=== PATIENT | female | born 1950 | race Caucasian/White ===

== ENCOUNTER 2023-04-17 09:43 | Outpatient (OUT) | payer MEDICARE, SELFPAY ==
--- NOTE | 2023-04-17 | MM_ITS ---
Patient Name: JAMILA VALENCIA MR#: [id number] : 1950 Exam Date: 04/17/2023 Ordering Doctor: DR RADHA GREER M.D. RADIOLOGY REPORT PROCEDURE: MM TOMOSYNTHESIS SCREENING BI COMPARISON: MG MAMM SCREEN 3D MARIO CAD, 03/15/2021. MG MAMM SCREEN 3D MARIO CAD, 03/25/2022. INDICATIONS: Screening mammogram Calculator Name NCI Breast Cancer Risk Assessment Tool 5 Year Breast Cancer Risk 1.70% Lifetime Breast Cancer Risk 4.00% Personal Breast Cancer No Personal Ovarian Cancer No Treatments None Family Cancers Mother with lymphoma cancer at age 85; Father with stomach cancer at age 68. LOCATION: [facility] BREAST COMPOSITION: Scattered areas fibroglandular density. FINDINGS: DIAGNOSTIC CATEGORY 1--NEGATIVE. NO CHANGE FROM COMPARISON ASSESSMENT. Scattered benign-appearing calcifications are present. Scattered benign-appearing lymph nodes are present. RIGHT BREAST: No significant suspicious finding. LEFT BREAST: No significant suspicious finding. RECOMMENDATIONS: ROUTINE MAMMOGRAM AND CLINICAL EVALUATION IN 12 MONTHS. PLEASE NOTE: A NORMAL MAMMOGRAM DOES NOT EXCLUDE THE POSSIBILITY OF BREAST CANCER. A CLINICALLY SUSPICIOUS PALPABLE LUMP SHOULD BE BIOPSIED. Dictated by: Rhett Hernandez MD on 04/17/2023 at 13:28 Approved by: Rhett Hernandez MD on 04/17/2023 at 13:30
== END 2023-04-17 09:44 | disposition home or self-care (01) ==
LOC: MAMMO 09:43
PROVIDERS: PCP Internal Medicine; Visit Provider Internal Medicine
DX: Z12.31 Encounter for screening mammogram for malignant neoplasm of breast (principal); Z80.0 Family history of malignant neoplasm of digestive organs; Z80.7 Family history of other malignant neoplasms of lymphoid, hematopoietic and related tissues
CPT/HCPCS: 77063; 77067

== ENCOUNTER 2024-04-19 13:17 | Outpatient (OUT) | payer MEDICARE, SELFPAY ==
--- NOTE | 2024-04-19 13:24 | XR_ITS ---
[address] [address] Patient Name: JAMILA VALENCIA MRN: [id number] date: 1950 Sex: F Assigned Patient Location: [facility] Current Patient Location: Accession/Order Number: [id number] Exam Date: 04/19/2024 13:36 Report Date: 04/20/2024 03:50 At the request of: RADHA GREER Procedure: XR DEXA axial skeleton EXAMINATION: XR DEXA axial skeleton HISTORY: Estrogen Deficiency COMPARISON: DEXA bone densitometry 03/25/2022 TECHNIQUE: Dual-energy X-ray absorptiometry (DXA) was performed. FINDINGS: SPINE ANALYSIS: Average bone mineral density is 1.212 g/cm2. T-score (standard deviation relative to young adult mean): 0.3 . -1.9% change since prior study. HIP ANALYSIS: Lowest bone mineral density is within the left femoral neck, 0.762 g/cm2. T-score (standard deviation relative to young adult mean): -2.0 . +6.1% change since prior study. XR/XR DEXA axial skeleton IMPRESSION: World Health Organization Classification: Osteopenia - Moderate Fracture Risk FRAX: Cannot be calculated. Pharmacologic treatment recommendations * No uniform recommendation applies to all patients. Management plans must be individualized. * Consider initiating pharmacologic treatment in postmenopausal women and men >= 50 years of age who have the following: Primary fracture prevention: * T-score <= - 2.5 at the femoral neck, total hip, lumbar spine, 33% radius (some uncertainty with existing data) by DXA. * Low bone mass (osteopenia: T-score between - 1.0 and - 2.5) at the femoral neck or total hip by DXA with a 10-year hip fracture risk >= 3% or a 10-year major osteoporosis-related fracture risk >= 20% (i.e., clinical vertebral, hip, forearm, or proximal humerus) based on the [place]-adapted FRAXregistered model. Secondary fracture prevention: * Fracture of the hip or vertebra regardless of BMD [4, 5]. * Fracture of proximal humerus, pelvis, or distal forearm in persons with low bone mass (osteopenia: T-score between - 1.0 and - 2.5). The decision to treat should be individualized in persons with a fracture of the proximal humerus, pelvis, or distal forearm who do not have osteopenia or low BMD [12, 13]. Gene MS, Bekah SL, Cate KL, Anusha EM, Emily KG, AJ, Alex ES. The clinician's guide to prevention and treatment of osteoporosis. Osteoporos Int. 2021;33(10):4873-5307. doi: 10.1007/i86316-654-88221-y. Epub 2021Sep 26. Erratum in: Osteoporos Int. 2021Dec 26;: PMID: 67200552; PMCID: [id number]. Electronically authenticated by: BRANDY BENITO Date: 04/20/2024 03:50
--- NOTE | 2024-04-19 13:25 | MM_ITS ---
Patient Name: JAMILA VALENCIA MR#: [id number] : 1950 Exam Date: 04/19/2024 Ordering Doctor: DR RADHA GREER M.D. RADIOLOGY REPORT PROCEDURE: MM TOMOSYNTHESIS SCREENING BI COMPARISON: MG MAMM SCREEN 3D MARIO CAD, 03/25/2022. MM TOMOSYNTHESIS SCREENING BI, 04/17/2023. INDICATIONS: Screening Calculator Name NCI Breast Cancer Risk Assessment Tool 5 Year Breast Cancer Risk 1.70% Lifetime Breast Cancer Risk 3.80% Personal Breast Cancer No Personal Ovarian Cancer No Treatments None Family Cancers Mother with lymphoma cancer at age 85; Father with stomach cancer at age 68. LOCATION: [facility] BREAST COMPOSITION: There are scattered areas of fibroglandular density. FINDINGS: DIAGNOSTIC CATEGORY 2--BENIGN FINDING. NO CHANGE FROM COMPARISON. Scattered benign-appearing calcifications are present. Scattered benign-appearing lymph nodes are present. RIGHT BREAST: No significant suspicious finding. LEFT BREAST: No significant suspicious finding. RECOMMENDATIONS: ROUTINE MAMMOGRAM AND CLINICAL EVALUATION IN 12 MONTHS. PLEASE NOTE: A NORMAL MAMMOGRAM DOES NOT EXCLUDE THE POSSIBILITY OF BREAST CANCER. A CLINICALLY SUSPICIOUS PALPABLE LUMP SHOULD BE BIOPSIED. Dictated by: Rhett Hernandez MD on 04/20/2024 at 08:23 Approved by: Rhett Hernandez MD on 04/20/2024 at 08:24
== END 2024-04-19 13:18 | disposition home or self-care (01) ==
LOC: MAMMO 13:17
PROVIDERS: PCP Internal Medicine; Visit Provider Internal Medicine
DX: Z12.31 Encounter for screening mammogram for malignant neoplasm of breast (principal); E28.39 Other primary ovarian failure; Z80.0 Family history of malignant neoplasm of digestive organs; Z80.7 Family history of other malignant neoplasms of lymphoid, hematopoietic and related tissues; M85.88 Other specified disorders of bone density and structure, other site
CPT/HCPCS: 77063; 77067; 77080

== ENCOUNTER 2024-06-09 13:52 | Outpatient (OUT) | payer MEDICARE, SELFPAY ==
[2024-06-09 15:41] LABS: Creatine Kinase 110 U/L (26-192); Myoglobin 73 ng/mL (9-82)
[2024-06-10 15:08] LABS: Aldolase 2.8 U/L (3.3-10.3)
== END 2024-06-09 13:53 | disposition home or self-care (01) ==
LOC: LAB 13:52
PROVIDERS: PCP Internal Medicine; Visit Provider Nurse Practitioner Family
DX: R29.898 Other symptoms and signs involving the musculoskeletal system (principal)
CPT/HCPCS: 36415; 82085; 82550; 83874

== ENCOUNTER 2024-06-20 10:55 | Outpatient (OUT) | payer MEDICARE, SELFPAY ==
--- NOTE | 2024-06-20 10:57 | VEIN_ITS ---
The [address] [address] Patient Name: JAMILA VALENCIA MRN: [id number] date: 1950 Sex: F Assigned Patient Location: Current Patient Location: Accession/Order Number: [id number] Exam Date: 06/20/2024 10:58 Report Date: 06/20/2024 14:56 At the request of: LULÚ WITT Procedure: VC Arterial Scan Kartik EXAM: VC Arterial Scan Kartik HISTORY: R09.89 Signs and symptoms involving circulatory system. COMPARISON: None. TECHNIQUE: Man scale, color Doppler, spectral Doppler waveform analysis was used to evaluate the bilateral lower extremity arteries. FINDINGS: No significant velocity elevations were seen to suggest a significant stenosis. Monophasic waveform is seen within the right posterior tibial artery. Color-flow is seen throughout. VEIN/VC Arterial Scan Kartik IMPRESSION: No hemodynamically significant stenosis by duplex criteria. Electronically authenticated by: Kaye RUIZ Date: 06/20/2024 14:56
--- OUTSIDE RECORDS SUMMARY | 2024-06-20 11:16 | XMS_ITS | CCD ---
Author Organization [facility] Care Team Providers Care Analytical Chemistry Teacher Name Role Phone ZOEY, DR GARCIA Admitting Unavailable ZOEY, DR GARCIA Attending Unavailable ZOEY, DR GARCIA Consulting Unavailable ZOEY, DR GARCIA Primary Care Unavailable SEDRO WOOLLEY, DR INOCENTE Voss Consulting Unavailable ZOEY, DR GARCIA Admitting Unavailable ZOEY, DR GARCIA Attending Unavailable ZOEY, DR GARCIA Primary Care Unavailable Christian Davis MD Primary Care Provider [phone] Susan HEAD ATHLETIC TRAINER/STRENGTH COACH, Elizabeth Jorge Unavailable Kunal Rodriguez Attending UnavailKunal Vázquez Admitting UnavailChristian Vasquez Primary Care Unavailable CHRISTIAN DAVIS Attending Unavailable KUNAL RODRIGUEZ Attending Unavailable CHRISTIAN DAVIS Referring Unavailable CHRISTIAN DAVIS Attending Unavailable KUNAL RODRIGUEZ Attending Unavailable CHRISTIAN DAVIS Referring Unavailable CHRISTIAN DAVIS Attending Unavailable KUNAL RODRIGUEZ Attending Unavailable KUNAL RODRIGUEZ Referring Unavailable LULÚ WITT Attending Unavailable Allergies Allergy Classification Reported Allergen(s) Allergy Type Date of Onset Reaction(s) Facility (20 sources) Acetaminophen / HYDROcodone Drug Allergy 04-07-2023 Headache [facility] (20 sources) Acetaminophen / oxyCODONE Drug Allergy 04-07-2023 Headache [facility] (20 sources) Amoxicillin Drug Allergy 04-07-2023 [facility] Medications Current Medications Medication Drug Class(es) Dates Sig (Normalized) Sig (Original) Calcium Carbonate-Vit D-Min (Calcium 600+D3 Plus Minerals) 600-800 MG-UNIT chewable tablet (20 sources) Calcium Carbonate-Vit D-Min (Calcium 600+D3 Plus Minerals) 600-800 MG-UNIT chewable tablet 1 (one) time each day at the same time. Active meloxicam 7.5 mg oral tablet (4 sources) Nonsteroidal Anti-inflammatory Drug Start: 06-07-2024 End: 08-06-2024 take 1 tablet by mouth once daily meloxicam (Mobic) 7.5 MG tablet Indications: Lumbar spondylosis Take 1 tablet (7.5 mg) by mouth Daily 30 tablet 1 06/07/2024 08/06/2024 Active Multiple Vitamin (Multi Vitamin) tablet (20 sources) Multiple Vitamin (Multi Vitamin) tablet 1 (one) time each day at the same time. Active Completed/Discontinued Medications Medication Drug Class(es) Dates Sig (Normalized) Sig (Original) bupivacaine hydrochloride 2.5 mg/ml injectable solution (4 sources) Amide Local Anesthetic Start: 05-10-2024 End: 05-10-2024 bupivacaine (Marcaine) 0.25 % injection 2.5 mg Start: 05-10-2024 End: 05-10-2024 bupivacaine (Marcaine) 0.25 % injection 2.5 mg Start: 05-10-2024 End: 05-10-2024 2.5 mg (1 mL), Injection, On ce, On Thu05/10/24 at 1015, For 1 dose Start: 05-10-2024 End: 05-10-2024 2.5 mg (1 mL), Injection, On ce, On Thu05/10/24 at 1015, For 1 dose dexamethasone phosphate 10 mg/ml injectable solution (4 sources) Corticosteroid Start: 05-10-2024 End: 05-10-2024 dexAMETHasone sod phos (Decadron) injection 10 mg Start: 05-10-2024 End: 05-10-2024 dexAMETHasone sod phos (Deca dron) injection 10 mg Start: 05-10-2024 End: 05-10-2024 10 mg (1 mL), Injection, Onc e, On Thu05/10/24 at 1015, For 1 dose Start: 05-10-2024 End: 05-10-2024 10 mg (1 mL), Injection, Onc e, On Thu05/10/24 at 1015, For 1 dose iohexol (OMNIPaque) 300 MG/M L injection 2 mL (4 sources) Start: 05-10-2024 End: 05-10-2024 iohexol (OMNIPaque) 300 MG/M L injection 2 mL Start: 05-10-2024 End: 05-10-2024 2 mL, Injection, Once in mor ging, Starting on Thu05/10/24 at 1008, For 1 dose Problems Active Problems Problem Classification Problem Date Documented Date Episodic/Chronic Administrative/social admission (2 sources) Patient encounter status; Translations: [Other specified counseling] 04-08-2024 Episodic Menopausal disorders (13 sources) Other primary ovarian failure; 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] Onset: 03-30-2022 04-06-2024 Chronic Osteoarthritis (12 sources) Osteoarthritis of right knee joint; Translations: [Unilateral primary osteoarthritis, right knee] Onset: 04-06-2024 04-06-2024 Chronic Other bone disease and musculoskeletal deformities (10 sources) Osteopenia; Translations: [Other specified disorders of bone density and structure, right thigh] Onset: 04-06-2024 04-06-2024 Episodic Other connective tissue disease (7 sources) Neurogenic claudication; Translations: [Other symptoms and signs involving the nervous system] 03-03-2024 Episodic Other connective tissue disease (5 sources) Other symptoms and signs involving the musculoskeletal system; Translations: [Other musculoskeletal symptoms referable to limbs] 04-06-2024 Episodic Other connective tissue disease (8 sources) Pain in bilateral legs; Translations: [Pain in right leg] 06-07-2024 Episodic Other nutritional; endocrine; and metabolic disorders (12 sources) Body mass index 30+ - obesity; Translations: [Obesity, unspecified] Onset: 04-06-2024 04-06-2024 Chronic Other nutritional; endocrine; and metabolic disorders (2 sources) Obesity caused by energy imbalance; Translations: [Morbid (severe) obesity due to excess calories] 04-08-2024 Chronic Other screening for suspected conditions (not mental disorders or infectious disease) (3 sources) Encounter for screening mammogram for malignant neoplasm of breast; Translations: [Patient encounter status] Onset: 03-30-2022 04-08-2024 Episodic Peripheral and visceral atherosclerosis (2 sources) Intermittent claudication; Translations: [Peripheral vascular disease, unspecified] 06-16-2024 Chronic Residual codes; unclassified (1 source) Family history of malignant neoplasm of digestive organs; Translations: [FAM HX MALIG NEOPLASM DIGESTIV ORGN] Onset: 03-30-2022 Episodic Residual codes; unclassified (1 source) Family history of other malignant neoplasms of lymphoid, hematopoietic and related tissues; Translations: [FAM HX OTH MAL CORINNA LYMPH HEMATPOETC] Onset: 03-30-2022 Episodic Spondylosis; intervertebral disc disorders; other back problems (20 sources) Degeneration of lumbar intervertebral disc; Translations: [Lumbar degenerative disc disease] Onset: 04-06-2024 04-06-2024 Chronic Spondylosis; intervertebral disc disorders; other back problems (13 sources) Lumbosacral radiculopathy; Translations: [Radiculopathy, lumbosacral region] 03-10-2024 Episodic Past or Other Problems Problem Classification Problem Date Documented Da te Episodic/Chronic Mood disorders (20 sources) Mood disorders Onset: 04-07-2023 04-07-2023 Unclassified (5 sources) Weakness of both lower extremities 04-06-2024 Results Test Name Value Interpretation Reference Range Facility ALL MYOGLOBINon 06-09-2024 Myoglobin [Mass/Vol] 73 ng/mL 9 - 82 ng/mL [facility] CKon 06-09-2024 CK [Catalytic activity/Vol] 110 U/L 26 - 192 U/L [facility] No Panel Informationon 06-09 [facility] MR lumbar spine wo conon MR lumbar spine wo con [place] [address] MRI Report Signed Patient: Dayna Valencia MR#: [id number] : 1950 Acct:[id number] Age/Sex: 73 / F ADM Date: 05/02/24 Loc: [facility] Room: Type: [facility] Attending Dr: Kunal Rodriguez DO Copies to: Kunal Rodriguze DO Ordering Provider: Kunal Rodriguez DO Date of Service: 05/02/24 MR/MR lumbar spine wo con: [id number] MR lumbar spine wo con 05/02/2024 10:15 AM SIGNS AND SYMPTOMS: Pain in the lower extremities with a history of low back pain PROTOCOL: Multiplanar multisequence MR images of the lumbar spine without contrast COMPARISON: None. FINDINGS: There is 5 mm of anterolisthesis of L4 upon L5 secondary to facet hypertrophy. The bones are in anatomic alignment otherwise. There is preservation of vertebral body heights. There is disc desiccation with moderate disc height loss at L5-S1. There is disc desiccation and mild disc height loss at L3-L4 and L4-L5. The marrow signal is within normal limits. The conus terminates at the superior endplate of the L2 vertebral body level. No epidural or paraspinous fluid collection is appreciated. Simple cysts are noted in the renal cortices requiring no further follow-up. At T12-L1: There is a normal disc, central canal, and neural foramen. At L1-L2: There is a normal disc, central canal, and neural foramen. At L2-L3: There is facet hypertrophy and ligament flavum thickening. There is mild spinal canal stenosis with mild bilateral neural foraminal narrowing. At L3-L4: There is a broad-based disc bulge. There is facet hypertrophy and ligamentum flavum thickening. There is moderate spinal canal stenosis. There is moderate left and moderate neural foraminal narrowing. At L4-L5: There is 5 mm of antral cc of L4 upon L5. There is facet hypertrophy. There is a broad- based disc bulge. There is mild spinal canal stenosis with mild bilateral neural foraminal narrowing. At L5-S1: There is a broad-based disc bulge with endplate osteophyte formation and facet hypertrophy. There is minimal spinal canal narrowing. There is mild bilateral neural foraminal narrowing. MR/MR lumbar spine wo con IMPRESSION: At L3-L4: There is a broad-based disc bulge. There is facet hypertrophy and ligamentum flavum thickening. There is moderate spinal canal stenosis. There is moderate left and moderate neural foraminal narrowing. At L4-L5: There is 5 mm of antral cc of L4 upon L5. There is facet hypertrophy. There is a broad- based disc bulge. There is mild spinal canal stenosis with mild bilateral neural foraminal narrowing. Lesser degrees of degenerative changes are noted as above. Impression dictated by: Willis Batista M.D.05/02/2024 5:33 PM Dictation Location: [place] [address] Transcribed By: [facility] 05/02/24 173 Dictated By: Willis Batista II, MD 05/02/24 1727 Signed By: 05/02/24 173 Normal [facility] COMPREHENSIVE METABOLIC PANE Hari 04-09-2024 Albumin [Mass/Vol] 4.1 g/dL Normal 3.6-5.1 [facility] Comment on above: Performed By: #### 1 0231 #### [facility] of [address], [address] [place] [address] Skip Tender: Alexandro Zambrano MD Albumin/Globulin [Mass ratio] 1.6 {ratio} Normal 1.0-2.5 [facility] Comment on above: Performed By: #### 1 0231 #### [facility] of [address], [address] [place] [address] Skip Tender: Alexandro Zambrano MD ALP [Catalytic activity/Vol] 86 U/L Normal 37-153 [facility] Comment on above: Performed By: #### 1 0231 #### [facility] of [address], [address] [place] [address] Skip Tender: Alexandro Zambrano MD ALT [Catalytic activity/Vol] 13 U/L Normal 6-29 [facility] Comment on above: Performed By: #### 1 0231 #### [facility] of [address], [address] [place] [address] Skip Tender: Alexandro Zambrano MD AST [Catalytic activity/Vol] 18 U/L Normal 10-35 [facility] Comment on above: Performed By: #### 1 0231 #### [facility] of [address], [address] [place] [address] Skip Tender: Alexandro Zambrano MD Bilirubin [Mass/Vol] 0.5 mg/dL Normal 0.2-1.2 [facility] Comment on above: Performed By: #### 1 0231 #### [facility] of [place] [address] Skip Tender: Alexandro Zambrano MD BUN/CREATININE RATIO SEE NOTE: Normal 6-22 [facility] Comment on above: Result Comment: Not Reported: BUN and Creatinine are within reference range. Performed By: #### 1 0231 #### [facility] [address] [address] Skip Tender: Alexandro Zambrano MD Calcium [Mass/Vol] 9.6 mg/dL Normal 8.6-10.4 [facility] Comment on above: Performed By: #### 1 0231 #### [facility] [place] [address] Skip Tender: Alexandro Zambrano MD Chloride [Moles/Vol] 109 mmol/L Normal 98-110 [facility] Comment on above: Performed By: #### 1 0231 #### [facility] [place] [address] Skip Tender: Alexandro Zambrano MD CO2 [Moles/Vol] 26 mmol/L Normal 20-32 [facility] Comment on above: Performed By: #### 1 0231 #### [facility] [place] [address] Skip Tender: Alexandro Zambrano MD Creatinine [Mass/Vol] 0.93 mg/dL Normal 0.60-1.00 [facility] Comment on above: Performed By: #### 1 0231 #### [facility] [place] [address] Skip Tender: Alexandro Zambrano MD GFR/1.73 sq M.predicted among non-blacks MDRD (S/P/Bld) [Vol rate/Area] 64 mL/min/{1.73_m2} Normal > OR = 60 [facility] Comment on above: Performed By: #### 1 0231 #### [facility] of [place] [address] Skip Tender: Alexandro Zambrano MD Globulin (S) [Mass/Vol] 2.5 g/dL Normal 1.9-3.7 [facility] Comment on above: Performed By: #### 1 0231 #### [facility] of [place] [address] Skip Tender: Alexandro Zambrano MD Glucose [Mass/Vol] 87 mg/dL Normal 65-99 [facility] Comment on above: Result Comment: Fasting reference interval Performed By: #### 1 0231 #### [facility] [place] [address] Skip Tender: Alexandro Zambrano MD Potassium [Moles/Vol] 4.4 mmol/L Normal 3.5-5.3 [facility] Comment on above: Performed By: #### 1 0231 #### [facility] [place] [address] Skip Tender: Alexandro Zambrano MD Protein [Mass/Vol] 6.6 g/dL Normal 6.1-8.1 [facility] Comment on above: Performed By: #### 1 0231 #### [facility] [place] [address] Skip Tender: Alexandro Zambrano MD Sodium [Moles/Vol] 141 mmol/L Normal 135-146 [facility] Comment on above: Performed By: #### 1 0231 #### [facility] [place] [address] Skip Tender: Alexandro Zambrano MD Urea nitrogen [Mass/Vol] 21 mg/dL Normal 7-25 [facility] Comment on above: Performed By: #### 1 0231 #### [facility] [place] [address] Skip Tender: Alexandro Zambrano MD EMG 2 Extremitieson 03-10-20 24 S1 radic b/l very mild [facility] NVC 9-10 Nerveson 03-10-2024 S1 radic b/l very mild [facility] CBC AUTO DIFFon 03-25-2022 BASO # 0.0 103/ul Normal 0.0-0.1 [facility] Comment on above: Performed By: #### C BC #### [facility] [address] [place] [address] [address] Lisa Rowan Basophils/100 WBC (Bld) 0.4 % Normal 0.2-2.0 [facility] Comment on above: Performed By: #### C BC #### [facility] [address] [place] [address] Dr. Lisa Rowan EO # 0.2 103/ul Normal 0.0-0.7 [facility] Comment on above: Performed By: #### C BC #### [facility] [address] [place] [address] Dr. Lisa Rowan Eosinophils/100 WBC (Bld) 3.2 % Normal 0.9-7.0 [facility] Comment on above: Performed By: #### C BC #### [facility] [address] [place] [address] Dr. Lisa Rowan Erythrocyte distribution width (RBC) [Ratio] 13.7 % Normal 11.0-15.0 [facility] Comment on above: Performed By: #### C BC #### [facility] [address] [place] [address] Dr. Lisa Rowan Hematocrit (Bld) [Volume fraction] 40.0 % Normal 36.0-48.0 [facility] Comment on above: Performed By: #### C BC #### [facility] [address] [place] [address] Dr. Lisa Rowan Hemoglobin (Bld) [Mass/Vol] 12.9 g/dL Normal 12.0-16.0 [facility] Comment on above: Performed By: #### C BC #### [facility] [address] [place] [address] Dr. Lisa Rowan IG # 0.02 10e3/ul Normal 0.00-0.03 [facility] Comment on above: Performed By: #### C BC #### [facility] [address] [place] [address] Dr. Lisa Rowan IG % 0.3 % Normal 0.0-0.5 [facility] Comment on above: Performed By: #### C BC #### [facility] [address] [place] [address] Dr. Lisa Rowan LYMPH # 1.8 103/ul Normal 1.2-3.8 [facility] Comment on above: Performed By: #### C BC #### [facility] [address] [place] [address] [address] Lisa Rowan Lymphocytes/100 WBC (Bld) 25.7 % Normal 20.5-60.0 [facility] Comment on above: Performed By: #### C BC #### [facility] [address] [place] [address] [address] Lisa Rowan MANUAL DIFF REQ NO Normal [facility] Comment on above: Performed By: #### C BC #### [facility] [address] [place] [address] Dr. Lisa Rowan MCH (RBC) [Entitic mass] 32.7 pg Normal 26.7-34.0 [facility] Comment on above: Performed By: #### C BC #### [facility] [address] [place] [address] Dr. Lisa Rowan MCHC (RBC) [Mass/Vol] 32.3 g/dL Normal 29.9-35.2 [facility] Comment on above: Performed By: #### C BC #### [facility] [address] [place] [address] Dr. Lisa Rowan MCV (RBC) [Entitic vol] 101.3 fL Critically high 81.0-99.0 [facility] Comment on above: Performed By: #### C BC #### [facility] [address] [place] [address] Dr. Lisa Rowan MONO # 0.6 103/ul Normal 0.3-0.8 [facility] Comment on above: Performed By: #### C BC #### [facility] [address] [place] [address] Dr. Lisa Rowan Monocytes/100 WBC (Bld) 9.2 % Normal 1.7-12.0 [facility] Comment on above: Performed By: #### C BC #### [facility] [address] [place] [address] Dr. Lisa Rowan NEUT # 4.2 103/ul Normal 1.4-6.5 [facility] Comment on above: Performed By: #### C BC #### [facility] [address] [place] [address] [address] Lisa Rowan Neutrophils/100 WBC (Bld) 61.2 % Normal 43.0-75.0 [facility] Comment on above: Performed By: #### C BC #### [facility] [address] [place] [address] Dr. Lisa Rowan Platelet mean volume (Bld) [Entitic vol] 9.8 fL Normal 9.5-13.5 [facility] Comment on above: Performed By: #### C BC #### [facility] [address] [place] [address] Dr. Lisa Rowan PLT 257 103/ul Normal 150-450 [facility] Comment on above: Performed By: #### C BC #### [facility] [address] [place] [address] Dr. Lisa Rowan RBC 3.95 106/ul Critically low 4.20-5.40 [facility] Comment on above: Performed By: #### C BC #### [facility] [address] [place] [address] Dr. Lisa Rowan WBC 6.8 103/ul Normal 4.0-11.0 [facility] Comment on above: Performed By: #### C BC #### [facility] [address] [place] [address] Dr. Lisa Rowan LIPID PROFILEon 03-25-2022 CHOL-HDL RATIO NORM SEE BELOW Normal [facility] Comment on above: Result Comment: 3.3 - 4.4 LOW RISK 4.4 - 7.1 AVERAGE RISK 7.1 - 11.0 MODERATE RISK >11.0 HIGH RISK Performed By: #### L IPID, CMP #### [facility] [address] [place] [address] Dr. Lisa Rowan Cholesterol [Mass/Vol] 170 mg/dL Normal <=200 [facility] Comment on above: Performed By: #### L IPID, CMP #### [facility] [address] [place] [address] Dr. Lisa Rowan Cholesterol in HDL [Mass/Vol] 66 mg/dL Critically high 40-60 [facility] Comment on above: Performed By: #### L IPID, CMP #### [facility] [address] [place] [address] [address] Lisa Rowan Cholesterol in LDL [Mass/Vol] 92.8 mg/dL Normal [facility] Comment on above: Performed By: #### L IPID, CMP #### [facility] [address] [place] [address] Dr. Lisa Rowan Cholesterol.total/C holesterol in HDL [Mass ratio] 2.6 {ratio} Normal [facility] Comment on above: Performed By: #### L IPID, CMP #### [facility] [address] [place] [address] [address] Lisa Rowan HDL NORMAL > or = 60 mg/dl - LOW CARDIOVASCULAR RISK <40 mg/dl - HIGH CARDIOVASCULAR RISK Normal [facility] Comment on above: Performed By: #### L IPID, CMP #### [facility] [address] [place] [address] Dr. Lisa Rowan LDL CALC NORMAL SEE BELOW Normal [facility] Comment on above: Result Comment: <100 mg/dl OPTIMAL 100 - 129 mg/dl NEAR OR ABOVE OPTIMAL 130 - 159 mg/dl BORDERLINE HIGH 160 - 189 mg/dl HIGH >190 mg/dl VERY HIGH Performed By: #### L IPID, CMP #### [facility] [address] [place] [address] Dr. Lisa Rowan Triglyceride [Mass/Vol] 56 mg/dL Normal <=150 [facility] Comment on above: Performed By: #### L IPID, CMP #### [facility] [address] [place] [address] Dr. Lisa Rowan VLDL CALC 11.2 mg/dL Normal [facility] Comment on above: Performed By: #### L IPID, CMP #### [facility] [address] [place] [address] Dr. Lisa Rowan MG MAMM SCREEN 3D MARIO CADon 03-25-2022 MG MAMM SCREEN 3D MARIO CAD Patient: DAYNA VALENCIA Exam Date: 03/25/2022 : 1950 Gender:F Ordering : DR CHRISTIAN DAVIS M.D. Admission #: [id number] Family : Order #: [id number] CLICK HERE TO VIEW EXAM RADIOLOGY REPORT PROCEDURE: MAMMOGRAM SCREENING 3D BILATERAL CAD COMPARISON: MG MAMM SCREEN MARIO W CAD, 06/04/2017. MG MAMM SCREEN 3D MARIO CAD, 03/15/2021. INDICATIONS: Screening mammography Calculator Name NCI Breast Cancer Risk Assessment Tool 5 Year Breast Cancer Risk 1.70% Lifetime Breast Cancer Risk 4.30% Personal Breast Cancer No Personal Ovarian Cancer No Treatments None Family Cancers Mother with lymphoma cancer at age 85; Father with stomach cancer at age 68. LOCATION: [facility] BREAST COMPOSITION: Scattered areas fibroglandular density. FINDINGS: DIAGNOSTIC CATEGORY 1--NEGATIVE. NO CHANGE FROM COMPARISON ASSESSMENT. Scattered benign-appearing calcifications are present. Scattered benign-appearing lymph nodes are present. RIGHT BREAST: No significant suspicious finding. LEFT BREAST: No significant suspicious finding. RECOMMENDATIONS: ROUTINE MAMMOGRAM AND CLINICAL EVALUATION IN 12 MONTHS. PLEASE NOTE: A NORMAL MAMMOGRAM DOES NOT EXCLUDE THE POSSIBILITY OF BREAST CANCER. A CLINICALLY SUSPICIOUS PALPABLE LUMP SHOULD BE BIOPSIED. Dictated by: Inocente Alas MD on 03/25/2022 at 12:23 Approved by: Inocente Alas MD on 03/25/2022 at 12:25 Normal [facility] PROF 14(COMP METB)on 03-25- 022 Albumin [Mass/Vol] 3.5 g/dL Normal 3.4-5.0 [facility] Comment on above: Performed By: #### L IPID, CMP #### [facility] [address] [place] [address] Dr. Lisa Rowan Albumin/Globulin [Mass ratio] 1.0 {ratio} Normal [facility] Comment on above: Performed By: #### L IPID, CMP #### [facility] [address] [place] [address] [address] Lisa Rowan ALP [Catalytic activity/Vol] 96 U/L Normal 46-116 [facility] Comment on above: Performed By: #### L IPID, CMP #### [facility] [address] [place] [address] [address] Lisa Rowan ALT [Catalytic activity/Vol] 24 U/L Normal 14-59 [facility] Comment on above: Performed By: #### L IPID, CMP #### [facility] [address] [place] [address] [address] Lisa Rowan Anion gap [Moles/Vol] 10.2 mmol/L Normal [facility] Comment on above: Performed By: #### L IPID, CMP #### [facility] [address] [place] [address] [address] Lisa Rowan AST [Catalytic activity/Vol] 17 U/L Normal 15-37 [facility] Comment on above: Performed By: #### L IPID, CMP #### [facility] [address] [place] [address] [address] Lisa Rowan Bilirubin [Mass/Vol] 0.6 mg/dL Normal 0.2-1.0 [facility] Comment on above: Performed By: #### L IPID, CMP #### [facility] [address] [place] [address] Dr. Lisa Rowan Calcium [Mass/Vol] 9.3 mg/dL Normal 8.5-10.1 [facility] Comment on above: Performed By: #### L IPID, CMP #### [facility] [address] [address] [address] Lisa Rowan Chloride [Moles/Vol] 106 mmol/L Normal 98-107 [facility] Comment on above: Performed By: #### L IPID, CMP #### [facility] [address] [place] [address] Dr. Lisa Rowan CO2 [Moles/Vol] 28.8 mmol/L Normal 21.0-32.0 [facility] Comment on above: Performed By: #### L IPID, CMP #### [facility] [address] [address] [address] Lisa Rowan Creatinine [Mass/Vol] 0.89 mg/dL Normal 0.55-1.02 [facility] Comment on above: Performed By: #### L IPID, CMP #### [facility] [address] [place] [address] Dr. Lisa Rowan EGFR-AF BRUNEIAN >60 Normal >=60 [facility] Comment on above: Performed By: #### L IPID, CMP #### [facility] [address] [address] [address] Lisa Rowan EGFR-NON AF BRUNEIAN >60 Normal >=60 [facility] Comment on above: Performed By: #### L IPID, CMP #### [facility] [address] [address] [address] Lisa Rowan Globulin (S) [Mass/Vol] 3.6 g/dL Normal [facility] Comment on above: Performed By: #### L IPID, CMP #### [facility] [address] [address] [address] Lisa Rowan Glucose [Mass/Vol] 87 mg/dL Normal 74-106 [facility] Comment on above: Performed By: #### L IPID, CMP #### [facility] [address] [address] [address] Lisa Rowan Potassium [Moles/Vol] 4.0 mmol/L Normal 3.5-5.1 [facility] Comment on above: Performed By: #### L IPID, CMP #### [facility] [address] [address] [address] Lisa Rowan Protein [Mass/Vol] 7.1 g/dL Normal 6.4-8.2 [facility] Comment on above: Performed By: #### L IPID, CMP #### [facility] [address] [address] [address] Lisa Rowan Sodium [Moles/Vol] 141 mmol/L Normal 136-145 [facility] Comment on above: Performed By: #### L IPID, CMP #### [facility] [address] [address] [address] Lisa Rowan Urea nitrogen [Mass/Vol] 19.0 mg/dL Critically high 7.0-18.0 [facility] Comment on above: Performed By: #### L IPID, CMP #### [facility] [address] [address] [address] Lisa Rowan Urea nitrogen/Creatinine [Mass ratio] 21.3 mg/mg Normal [facility] Comment on above: Performed By: #### L IPID, CMP #### [facility] [address] [place] [address] Dr. Lisa Rowan XR DEXA BONE DENSITYon 03-25 XR DEXA BONE DENSITY EXAMINATION: XR DEXA BONE DENSITY, 03/25/2022 11:01 AM EDT HISTORY: Primary ovarian failure COMPARISON: 2017, 2012, 2009, 2006 TECHNIQUE: Dual-energy X-ray absorptiometry (DEXA) bone density study performed for the axial skeleton. FINDINGS: Bone mineral density AP spine L1-L4 measures 1.236 g/sq cm. T score 0.5. WHO classification: Normal. Lowest bone mineral density left femoral neck measures 0.715 g/sq cm. T score -2.3. WHO classification: Osteopenia IMPRESSION: Osteopenia. Moderate fracture risk Electronically authenticated by: INOCENTE ALAS Date: 2022-03-25 12:18 Normal [facility] Vital Signs Date Time Vital Sign Value Performing Clinician Rach alfonso 06-07-2024 15:47-0500 Body mass index (BMI) [Ratio] 36.17 kg/m2 Lulú Witt HEAD ATHLETIC TRAINER/STRENGTH COACH Work Phone: [facility] 06-07-2024 15:47-0500 Body weight 87.54 kg Lulú Witt HEAD ATHLETIC TRAINER/STRENGTH COACH Work Phone: [facility] 06-07-2024 15:47-0500 Diastolic blood pressure 78 mm[Hg] Lulú Witt HEAD ATHLETIC TRAINER/STRENGTH COACH Work Phone: [facility] 06-07-2024 15:47-0500 Systolic blood pressure 130 mm[Hg] Lulú Witt HEAD ATHLETIC TRAINER/STRENGTH COACH Work Phone: [facility] 05-10-2024 09:36-0500 Diastolic blood pressure 86 mm[Hg] Kunla Rodriguez DO Work Phone: [facility] 05-10-2024 09:36-0500 Heart rate 97 /min Kunal Rodriguez DO Work Phone: [facility] 05-10-2024 09:36-0500 SaO2% (BldA) [Mass fraction] 92 % Kunal Rodriguez DO Work Phone: [facility] 05-10-2024 09:36-0500 Systolic blood pressure 144 mm[Hg] Christopher Michael DO Work Phone: [facility] 04-08-2024 10:08-0500 Body height 155.6 cm Christian Davis MD Work Phone: [facility] 04-08-2024 10:08-0500 Body mass index (BMI) [Ratio] 35.42 kg/m2 Christian Davis MD Work Phone: [facility] 04-08-2024 10:08-0500 Body weight 85.73 kg Christian Davis MD Work Phone: [facility] 04-08-2024 10:08-0500 Diastolic blood pressure 68 mm[Hg] Christian Davis MD Work Phone: [facility] 04-08-2024 10:08-0500 Heart rate 83 /min Christian Davis MD Work Phone: [facility] 04-08-2024 10:08-0500 SaO2% (BldA) [Mass fraction] 97 % Christian Davis MD Work Phone: [facility] 04-08-2024 10:08-0500 Systolic blood pressure 122 mm[Hg] Christian Davis MD Work Phone: [facility] 04-06-2024 09:40-0500 Body mass index (BMI) [Ratio] 35.5 kg/m2 Christopher Michael DO Work Phone: [facility] 04-06-2024 09:40-0500 Body weight 85.91 kg Christopher Michael DO Work Phone: [facility] 04-06-2024 09:40-0500 Diastolic blood pressure 83 mm[Hg] Christopher Michael DO Work Phone: [facility] 04-06-2024 09:40-0500 Heart rate 94 /min Christopher Michael DO Work Phone: [facility] 04-06-2024 09:40-0500 SaO2% (BldA) [Mass fraction] 94 % Miklorenzo Michael DO Work Phone: [facility] 04-06-2024 09:40-0500 Systolic blood pressure 132 mm[Hg] Osminalysa Michael DO Work Phone: [facility] 03-18-2024 10:19-0400 Body height 155.6 cm Christian Davis MD Work Phone: [facility] 03-18-2024 10:19-0400 Body mass index (BMI) [Ratio] 35.05 kg/m2 Christian Davis MD Work Phone: [facility] 03-18-2024 10:19-0400 Body weight 84.82 kg Christian Davis MD Work Phone: [facility] 03-18-2024 10:19-0400 Diastolic blood pressure 74 mm[Hg] Christian Davis MD Work Phone: [facility] 03-18-2024 10:19-0400 Heart rate 92 /min Christian Davis MD Work Phone: [facility] 03-18-2024 10:19-0400 SaO2% (BldA) [Mass fraction] 97 % Christian Davis MD Work Phone: [facility] 03-18-2024 10:19-0400 Systolic blood pressure 122 mm[Hg] Christian Davis MD Work Phone: [facility] 03-03-2024 11:05-0400 Body height 155.6 cm Christian Davis MD Work Phone: [facility] 03-03-2024 11:05-0400 Body mass index (BMI) [Ratio] 35.23 kg/m2 Christian Davis MD Work Phone: [facility] 03-03-2024 11:05-0400 Body weight 85.28 kg Christian Davis MD Work Phone: [facility] 03-03-2024 11:05-0400 Diastolic blood pressure 70 mm[Hg] Christian Davis MD Work Phone: [facility] 03-03-2024 11:05-0400 Heart rate 94 /min Christian Davis MD Work Phone: [facility] 03-03-2024 11:05-0400 SaO2% (BldA) [Mass fraction] 97 % Christian Davis MD Work Phone: [facility] 03-03-2024 11:05-0400 Systolic blood pressure 118 mm[Hg] Christian Davis MD Work Phone: [facility] Encounters Encounter Date Encounter Type Care Provider Facility Start: 06-14-2024 End: 06-16-2024 Telephone encounter Griselda Luis [facility] Comment on above: Lower extremity ultr asound Start: 06-09-2024 End: 06-09-2024 Clinisync Result Encounter Lulú Witt HEAD ATHLETIC TRAINER/STRENGTH COACH Work Phone: [facility] External Department Unsolicited Start: 06-09-2024 End: 06-09-2024 Clinisync Result Encounter Luúl Witt HEAD ATHLETIC TRAINER/STRENGTH COACH Work Phone: [facility] External Department Unsolicited Start: 06-07-2024 End: 06-07-2024 Office outpatient visit 25 minutes Lulú Witt HEAD ATHLETIC TRAINER/STRENGTH COACH Work Phone: [facility] Comment on above: Pain in both lower e xtremities (Primary Dx); Weakness of both lower extremities; Lumbar spondylosis; Lumbar radiculopathy Start: 06-07-2024 End: 06-07-2024 ambulatory LULÚ WITT Not Available Start: 06-07-2024 End: 06-07-2024 Bamboo flowsheet Lulú Witt HEAD ATHLETIC TRAINER/STRENGTH COACH Work Phone: [facility] Start: 06-07-2024 End: 06-07-2024 Bamboo flowsheet Lulú Witt HEAD ATHLETIC TRAINER/STRENGTH COACH Work Phone: [facility] Start: 05-10-2024 End: 05-10-2024 Patient encounter procedure Kunal Rodriguez DO Work Phone: [facility] Comment on above: Lumbar radiculopathy (Primary Dx); Lumbosacral radiculopathy Start: 05-10-2024 End: 05-10-2024 ambulatory KUNAL RODRIGUEZ Not Available Start: 05-02-2024 End: 05-02-2024 ambulatory Kunal Rodriguez Facility:[facility] Start: 04-08-2024 End: 04-08-2024 Bamboo flowsheet Christian Davis MD Work Phone: [facility] Start: 04-08-2024 End: 04-08-2024 Bamboo flowsheet Christian Davis MD Work Phone: [facility] Start: 04-08-2024 End: 04-08-2024 Assay of hemosiderin, quant Christian Davis MD Work Phone: [facility] Work Phone: Start: 04-08-2024 End: 04-08-2024 Patient encounter procedure Christian Davis MD Work Phone: [facility] Comment on above: Routine general medi janine examination at health care facility (Primary Dx); ACP (advance care planning); Breast screening; Estrogen deficiency; Morbid (severe) obesity due to excess calories (CMS/HCC); Unilateral primary osteoarthritis, right knee; Body mass index (BMI) 35.0-35.9, adult Start: 04-08-2024 End: 04-08-2024 ambulatory CHRISTIAN DAVIS Not Available Start: 04-06-2024 End: 04-06-2024 Bamboo flowsheet Kunal Rodriguez DO Work Phone: [facility] [employer] [facility] Start: 04-06-2024 End: 04-06-2024 Bamboo flowsheet Kunal Rodriguez DO Work Phone: [employer] [address] Start: 04-06-2024 End: 04-06-2024 Office outpatient new 45 minutes Kunal Rodriguez DO Work Phone: [facility] [employer] [facility] Comment on above: Weakness of both low er extremities (Primary Dx); Lumbosacral radiculopathy Start: 04-06-2024 End: 04-06-2024 ambulatory KUNAL RODRIGUEZ Not Available Start: 03-18-2024 End: 03-18-2024 Bamboo flowsheet Christian Davis MD Work Phone: [facility] Start: 03-18-2024 End: 03-18-2024 Bamboo flowsheet Christian Davis MD Work Phone: [facility] Start: 03-18-2024 End: 03-18-2024 Office outpatient visit 15 minutes Christian Davis MD Work Phone: [facility] Comment on above: Neurogenic claudicat ion (Primary Dx) Start: 03-18-2024 End: 03-18-2024 ambulatory CHRISTIAN DAVIS Not Available Start: 03-10-2024 End: 03-10-2024 Patient encounter procedure Kunal Rodriguez DO Work Phone: [facility] Comment on above: Lumbosacral radiculo albin (Primary Dx); Neurogenic claudication Start: 03-10-2024 End: 03-10-2024 ambulatory KUNAL RODRIGUEZ Not Available Start: 03-03-2024 End: 03-03-2024 Bamboo flowsheet Christian Davis MD Work Phone: [facility] Start: 03-03-2024 End: 03-03-2024 Bamboo flowsheet Christian Davis MD Work Phone: [facility] Start: 03-03-2024 End: 03-03-2024 Office outpatient visit 15 minutes Christian Davis MD Work Phone: [facility] Comment on above: Neurogenic claudicat ion (Primary Dx) Start: 03-03-2024 End: 03-03-2024 ambulatory CHRISTIAN DAVIS Not Available Start: 03-30-2022 Encounter for genera l adult medical examination without abnormal findings DR CHRISTIAN DAVIS [facility] Start: 03-25-2022 End: 03-26-[address] CHRISTIAN DAVIS Facility:[facility] Start: 03-25-2022 End: 03-26-2022 Encounter for general adult medical examination without abnormal findings DR CHRISTIAN DAVIS Facility:[facility] Start: 11-13-[address] CHRISTIAN DAVIS Facilit y:[facility] Procedures Date Procedure Procedure Detail Performing Clinician Start: 06-09-2024 ALL MYOGLOBIN Lulú Car roll HEAD ATHLETIC TRAINER/STRENGTH COACH Work Phone: Start: 06-09-2024 [facility] Lulú Ana pastor HEAD ATHLETIC TRAINER/STRENGTH COACH Work Phone: Start: 03-10-2024 End: 03-10-2024 Needle emg ea extremty w/paraspinl area complete Christian Davis MD Work Phone: Start: 07-20-2012 Colonoscopy Christian arthur MD Work Phone: Plan of Treatment Date Care Activity Detail Author Start: 04-08-2025 Medicare Annual Well ness (AWV) Medicare Annual Wellness (AWV) [facility] Start: 03-23-2025 Screening for malign ant neoplasm of colon [facility] Start: 08-30-2024 End: 06-07-2025 Nerve Block Nerve Block Procedures Routine Pain in both lower extremities Lumbar spondylosis Lumbar radiculopathy Expected: 08/30/2024 (Approximate), Expires: 06/07/2025 [facility] Comment on above: Expected: 08/30/2024 (Approximate), Expires: 06/07/2025 Start: 08-30-2024 End: 08-30-2024 Patient encounter procedure [facility] Start: 08-22-2024 End: 08-22-2024 [facility] Start: 07-07-2024 End: 07-07-2024 Patient encounter procedure 07/07/2024 11:00 AM EST Office Visit [facility] [address] [place], [place] [address] [phone] Lulú Witt NP [address] [place] [phone] [facility] Start: 06-16-2024 End: 06-16-2026 US.doppler Lower extremity artery - bilateral Vascular US lower extremity arterial duplex bilateral with ELZA Vascular Ultrasound Routine Vascular claudication (CMS/HCC) Pain in both lower extremities Weakness of both lower extremities Expected: 06/16/2024 (Approximate), Expires: 06/16/2026 [facility] Work Phone: Comment on above: Expected: 06/16/2024 (Approximate), Expires: 06/16/2026 Start: 06-07-2024 End: 06-07-2024 Patient encounter procedure 06/07/2024 4:00 PM EST Office Visit [facility] [address] [place] [phone] Lulú Witt NP [address] [place] [phone] Arrived [facility] Comment on above: Arrived Start: 06-07-2024 End: 06-07-2025 Aldolase Aldolase Lab Routine Weakness of both lower extremities Expected: 06/07/2024 (Approximate), Expires: 06/07/2025 [facility] Comment on above: Expected: 06/07/2024 (Approximate), Expires: 06/07/2025 Start: 06-07-2024 End: 06-07-2025 Creatine kinase [Enzymatic activity/volume] in Serum or Plasma CK Lab Routine Weakness of both lower extremities Expected: 06/07/2024 (Approximate), Expires: 06/07/2025 [facility] Work Phone: Comment on above: Expected: 06/07/2024 (Approximate), Expires: 06/07/2025 Start: 06-07-2024 End: 06-07-2025 Myoglobin, serum Myoglobin, serum Lab Routine Weakness of both lower extremities Expected: 06/07/2024 (Approximate), Expires: 06/07/2025 [facility] Comment on above: Expected: 06/07/2024 (Approximate), Expires: 06/07/2025 Start: 06-07-2024 End: 06-07-2026 US.doppler Lower extremity artery - bilateral Vascular US lower extremity arterial duplex bilateral with ELZA Vascular Ultrasound Routine Pain in both lower extremities Weakness of both lower extremities Expected: 06/07/2024 (Approximate), Expires: 06/07/2026 [facility] Comment on above: Expected: 06/07/2024 (Approximate), Expires: 06/07/2026 Start: 05-10-2024 End: 05-10-2024 Patient encounter procedure 05/10/2024 10:00 AM EST Office Visit [facility] [address] [place] [phone] Kunal Rodriguez DO [address] [place] [phone] [facility] Start: 04-08-2024 End: 04-08-2025 Comprehensive metabolic 2000 panel - Serum or Plasma Comprehensive metabolic panel Lab Routine Routine general medical examination at health care facility Morbid (severe) obesity due to excess calories (CMS/HCC) Unilateral primary osteoarthritis, right knee Expected: 04/08/2024 (Approximate), Expires: 04/08/2025 [facility] Comment on above: Expected: 04/08/2024 (Approximate), Expires: 04/08/2025 Start: 04-08-2024 End: 04-08-2025 DXA Skeletal system Views for bone density DEXA bone density Imaging Routine Estrogen deficiency Expected: 04/08/2024 (Approximate), Expires: 04/08/2025 [facility] Work Phone: Comment on above: Expected: 04/08/2024 (Approximate), Expires: 04/08/2025 Start: 04-08-2024 End: 06-08-2025 MG Breast - bilateral Screening Bilateral screening mammogram Imaging Routine Breast screening Expected: 04/08/2024 (Approximate), Expires: 06/08/2025 [facility] Comment on above: Expected: 04/08/2024 (Approximate), Expires: 06/08/2025 Start: 04-08-2024 End: 04-08-2025 TSH W/REFLEX TO FT4 TSH W/REFLEX TO FT4 Lab Routine Routine general medical examination at health care facility Morbid (severe) obesity due to excess calories (CMS/HCC) Unilateral primary osteoarthritis, right knee Expected: 04/08/2024 (Approximate), Expires: 04/08/2025 [facility] Comment on above: Expected: 04/08/2024 (Approximate), Expires: 04/08/2025 Start: 04-08-2024 End: 04-08-2024 Patient encounter procedure [facility] Comment on above: Arrived Start: 04-07-2024 Medicare Annual Well ness (AWV) Medicare Annual Wellness (AWV) [facility] Start: 04-06-2024 End: 04-06-2025 MR Lumbar spine WO contrast MR lumbar spine wo contrast Imaging Routine Weakness of both lower extremities Expected: 04/06/2024, Expires: 04/06/2025 [facility] Work Phone: Comment on above: Expected: 04/06/2024 , Expires: 04/06/2025 Start: 04-06-2024 End: 04-06-2025 Nerve Block Nerve Block Procedures Routine Lumbosacral radiculopathy Expected: 04/06/2024 (Approximate), Expires: 04/06/2025 [facility] Comment on above: Expected: 04/06/2024 (Approximate), Expires: 04/06/2025 Start: 04-06-2024 End: 04-06-2024 Patient encounter procedure 04/06/2024 10:00 AM EST Office Visit [facility] [address] [place] [phone] Kunal Rodriguez DO [address] [place] [address] Neurogenic claudication [facility] Comment on above: Neurogenic claudicat ion Start: 03-18-2024 End: 03-18-2024 Patient encounter procedure [facility] Comment on above: Arrived Start: 03-03-2024 End: 03-03-2025 EMG 2 Extremities EMG 2 Extremities Neurology Routine Neurogenic claudication Expected: 03/03/2024 (Approximate), Expires: 03/03/2025 [facility] Work Phone: Comment on above: Expected: 03/03/2024 (Approximate), Expires: 03/03/2025 Start: 03-03-2024 End: 03-03-2024 Patient encounter procedure 03/03/2024 11:30 AM EDT Office Visit [facility] [address] [facility] [address] [place] [id number] Christian Davis MD [address] [facility] [address] [place], [place] [id number] Arrived [facility] Comment on above: Arrived Start: 01-31-2024 Influenza vaccination Influenza Vacc ine (#1) [facility] Start: 07-20-2022 Screening for malign ant neoplasm of colon Colonoscopy [facility] Start: 1950 Screening for malign ant neoplasm of colon [facility] Immunizations Immunization Date Immunization Notes Care Provider Fa cility 06-10-2023 Influenza, Seasonal, Quadrivalent, Adjuvanted Christian Davis MD Work Phone: [facility] 06-10-2023 influenza virus vacc ine, unspecified formulation Christian Davis MD Work Phone: [facility] 04-02-2022 Influenza, Seasonal, Quadrivalent, Adjuvanted Christian Davis MD Work Phone: [facility] 04-01-2022 pneumococcal conjuga te 20-valent (Prevnar 20) 0.5 ML vaccine Christian Davis MD Work Phone: [facility] 03-20-2021 influenza, high dose seasonal, preservative-free Christian Davis MD Work Phone: [facility] 02-15-2020 influenza, injectabl e, quadrivalent, preservative free Christian Davis MD Work Phone: [facility] 03-30-2019 Seasonal trivalent influenza vaccine, adjuvanted, preservative free Christian Davis MD Work Phone: [facility] 01-27-2019 pneumococcal polysaccharide vaccine, 23 valent Christian Davis MD Work Phone: [facility] 05-05-2018 Influenza, High-dose Seasonal, Quadrivalent, Preservative Free Christian Davis MD Work Phone: [facility] 01-11-2018 pneumococcal conjuga te vaccine, 13 valent Christian Davis MD Work Phone: [facility] 01-04-2018 pneumococcal polysaccharide vaccine, 23 valent Christian Davis MD Work Phone: [facility] 05-26-2017 influenza, injectabl e, quadrivalent, preservative free Christian Davis MD Work Phone: [facility] 04-09-2016 influenza, injectabl e, quadrivalent, preservative free Christian Davis MD Work Phone: [facility] 05-04-2015 influenza virus vacc ine, split virus (incl. purified surface antigen) Christian Davis MD Work Phone: [facility] 05-02-2013 zoster vaccine, live Christian Davis MD Work Phone: [facility] 10-14-2012 pneumococcal polysaccharide vaccine, 23 valent Christian Davis MD Work Phone: [facility] Payers Date Payer Category Payer Self-pay 2023 Private Health Insurance [facility] [place] [employer] [id number] 2023 Unknown [id number] 2013 Medicare [id number] 1959 Medicare [id number] 1959 Private Health Insurance [facility] [id number] 1948 Unknown [id number] 1948 Unknown [id number] 1948 Unknown [id number] 1948 Unknown [id number] 1950 Unknown [id number] 1950 Unknown [id number] 1950 Unknown [id number] 1950 Unknown [id number] 1950 Unknown [id number] Unknown [id number] Social History Date Type Detail Facility 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 Start: 03-03-2024 Tobacco smoking status NHIS Never sm oked tobacco [facility] Start: 03-03-2024 Tobacco use and exposure Smoke less tobacco non-user [facility] Clinical Notes 03-03-2024 to 06-16-2024 Telephone Encounter - Lulú Witt NP - 06/16/2024 1:55 PM ESTTelephone Encounter - Lulú Witt NP - 06/16/2024 1:55 PM ESTTelephone Encounter - Griselda Issa MA - 06/16/2024 1:48 PM EST Note Date & Type Note Facility 06-16-2024 Telephone encount er Note No, thank you for catching that. She does not need the carotid ultrasound; that was placed in error. I reordered the lower extremity ultrasound with ELZA and canceled the order for the carotid ultrasound. [facility] 06-16-2024 Miscellaneous Notes Formattin g of this note might be different from the original. No, thank you for catching that. She does not need the carotid ultrasound; that was placed in error. I reordered the lower extremity ultrasound with ELZA and canceled the order for the carotid ultrasound. The original order was for a Vascular US lower extremity artrial duplex bilateral with ELZA and the new order was for a carotid ultrasound. Do you want both done? I placed a new order. Yes this code works it is I73.9 They are requesting a new order. Left message with [facility] Can we try vascular claudication since there is concern for this? [facility] at [facility] about her Vascular ultrasound diagnosis code meet guidelines to get this approved. She said none of the 3 work. Fax back [phone] [facility] [phone] documented in this encounter [facility] 06-16-2024 Telephone encount er Note The original order was for a Vascular US lower extremity artrial duplex bilateral with ELZA and the new order was for a carotid ultrasound. Do you want both done? [facility] 06-16-2024 Telephone encount er Note I placed a new order. [facility] 06-15-2024 Telephone encount er Note Yes this code works it is I73.9 They are requesting a new order. [facility] 06-15-2024 Telephone encount er Note Left message with [facility] 06-14-2024 Telephone encount er Note Can we try vascular claudication since there is concern for this? [facility] 06-14-2024 Telephone encount er Note [facility] at [facility] about her Vascular ultrasound diagnosis code meet guidelines to get this approved. She said none of the 3 work. Fax back [phone] [place] [phone] [facility] 06-07-2024 Instructions Lulú Witt NP - 06/07/2024 4:00 PM EST - Start meloxicam 7.5 mg by mouth once a day - Vascular ultrasound - Check labs (CK, myoglobin, aldolase) documented in this encounter [facility] 05-10-2024 History of Presen t illness Narrative Images from the original note were not included. Reason for Appointment: Epidural HERE FOR FIRST EPI Patient ID: Dayna Valencia is a 74 y.o. female who presents for lumbar radiculopathy. Current Medications: has a current medication list which includes the following prescription(s): calcium 600+d3 plus minerals and multi vitamin. Vitals: Visit Vitals BP 144/86 Pulse 97 SpO2 92% Smoking Status Never Allergies: Allergies Allergen Reactions Amoxicillin Other Reaction(s): diarrhea Hydrocodone-Acetaminophen Headache Oxycodone-Acetaminophen Headache EPIDURAL NOTE: Bilateral L4 Epidural Injection Fluoroscopic needle guidance REASON FOR PROCEDURE: Lumbar radiculopathy and radicular pain ALLERGIES: See allergy list above. Patient specifically denies contrast and shellfish allergy. MEDICATIONS INJECTED: 1ml of 0.25% Bupivacaine mixed with Dexamethasone (10mg/ml) 10mg total. LOCAL ANESTHETIC INJECTED: None CONTRAST: Omnipaque 300mgI/mL, 1 mL per each procedure site SEDATION MEDICATIONS: None TOPICAL ANESTHETIC: Ethyl Chloride spray ESTIMATED BLOOD LOSS: None COMPLICATIONS: None TECHNIQUE: If applicable, blood thinning medications were held according to SIS and BOYD guidelines. Time-out was taken to identify the correct patient, procedure, and side prior to starting the procedure. Lying in a prone position, the patient was prepped in the usual aseptic fashion. The appropriate site was identified under fluoroscopy. A 22 gauge needle was then introduced and the Right L4 foramen was negotiated under direct intermittent fluoroscopy. Lateral view was obtained to confirm needle placement and depth. Negative aspiration confirmed no blood and no CSF return. In the AP view 1 ml of Omnipaque 300mgI/mL contrast was injected and showed a good spread of the dye along the corresponding nerve root and through the foramen into the axillary recess of the epidural space without any vascular uptake. Then the 0.5ml of 0.25% Bupivacaine mixed with 0.5ml of Dexamethasone 10mg/ml was injected without adverse effect. The next appropriate site was identified under fluoroscopy. A 22 gauge needle was then introduced and the Left L4 foramen was negotiated under direct intermittent fluoroscopy. Lateral view was obtained to confirm needle placement and depth. Negative aspiration confirmed no blood and no CSF return. In the AP view 1 ml of Omnipaque 300mgI/mL contrast was injected and showed a good spread of the dye along the corresponding nerve root and through the foramen into the axillary recess of the epidural space without any vascular uptake. Then the 0.5ml of 0.25% Bupivacaine mixed with 0.5ml of Dexamethasone 10mg/ml was injected without adverse effect. The procedure was completed without complications and was tolerated well. The patient was monitored after the procedure. The patient (or responsible democrat) was given post-procedure and discharge instructions to follow at home. The patient was discharged in stable condition. A follow-up appointment was made. The patient was instructed to avoid activities that would normally worsen the pain. Pre-procedure pain score: 2 /10 Test Design Engineer: RT Doug(R) kVp: 103 Time (sec): 19 mA: 3.0 documented in this encounter [facility] 04-08-2024 History of Presen t illness Narrative Images from the original note were not included. Subjective : Chief Complaint: Dayna Valencia is an 73 y.o. female here for an annual wellness visit. I have reviewed and reconciled the history and medication list with the patient today. Current Outpatient Medications Medication Sig Dispense Refill Calcium Carbonate-Vit D-Min (Calcium 600+D3 Plus Minerals) 600-800 MG-UNIT chewable tablet 1 (one) time each day at the same time. Multiple Vitamin (Multi Vitamin) tablet 1 (one) time each day at the same time. No current facility-administered medications for this visit. Review of Systems List of current healthcare providers: Patient Care Team: Christian Davis MD as PCP - General (Internal Medicine) Elizabeth Davis NP as PCP - ACO [employer] Medicare Annual Visit Over the past 2 weeks, how often have you been bothered by any of the following problems? Little interest or pleasure in doing things: Not at all Feeling down, depressed, or hopeless: Not at all Patient Health Questionnaire-2 Score: 0 Aguirre Fall Risk History of Falling, Immediate or Within 3 Months: No Secondary Diagnosis: No Ambulatory Aid: Walks without aid/bedrest/nurse assist Health Risk Assessment Form Do you need help eating, bathing, using the toilet, dressing, or getting around your home?: No Can you prepare your own meals?: Yes Can you do your own housework without help?: Yes Can you shop for groceries or clothes without help?: Yes Do you exercise for about 20 minutes 3 or more days a week?: No How confident are you that you can control and manage most of your health problems?: Very confident Can you mange your money, credit cards and accounts, pay bills and taxes?: Yes Cognitive Screening Three Word Registration: Apple, Watch, Iraida Clock Drawing: Normal Clock - 2 Three Word Recall: All 3 words correct - 3 Total Score (0-5 Points): 5 Pain Assessment Pain Score: 4 Advance Care Planning Do you have a living will?: Yes Do you have a medical power of claims attorney?: Yes Who is your medical power of claims attorney?: Objective : BP 122/68 Pulse 83 Ht 5' 1.25 Wt 189 lb SpO2 97% BMI 35.42 kg/m No results found. Physical Exam Constitutional: General: She is not in acute distress. Cardiovascular: Rate and Rhythm: Normal rate and regular rhythm. Heart sounds: Normal heart sounds. Pulmonary: Effort: Pulmonary effort is normal. Breath sounds: Normal breath sounds. Neurological: General: No focal deficit present. Mental Status: She is alert and oriented to person, place, and time. Motor: No weakness, tremor, atrophy or abnormal muscle tone. Coordination: Coordination is intact. Gait: Gait is intact. Deep Tendon Reflexes: Reflex Scores: Patellar reflexes are 0 on the right side and 1+ on the left side. Achilles reflexes are 0 on the right side and 0 on the left side. Psychiatric: Mood and Affect: Mood normal. Assessment/Plan : The following health maintenance schedule was reviewed with the patient and provided in printed form in the after visit summary: Health Maintenance Topic Date Due Influenza Vaccine (1) 01/31/2024 Medicare Annual Wellness (AWV) 04/07/2024 Colorectal Cancer Screening 03/23/2025 Pneumococcal Vaccine: 65+ Years Completed Mammogram Discontinued Advance Care Planning Assessment/Plan Diagnoses and all orders for this visit: Routine general medical examination at health care facility - TSH W/REFLEX TO FT4; Future - Comprehensive metabolic panel; Future ACP (advance care planning) Breast screening - Bilateral screening mammogram; Future Estrogen deficiency - DEXA bone density; Future Morbid (severe) obesity due to excess calories (CMS/HCC) - TSH W/REFLEX TO FT4; Future - Comprehensive metabolic panel; Future Unilateral primary osteoarthritis, right knee - TSH W/REFLEX TO FT4; Future - Comprehensive metabolic panel; Future Body mass index (BMI) 35.0-35.9, adult Orders Placed This Encounter Procedures DEXA bone density Standing Status: Future Standing Expiration Date: 04/08/2025 Order Specific Question: Reason for exam: Answer: see dx Bilateral screening mammogram Standing Status: Future Number of Occurrences: 1 Standing Expiration Date: 06/08/2025 Order Specific Question: Reason for exam: Answer: screening Electronically signed by Christian Davis MD on April 08, 2024 documented in this encounter [facility] 04-06-2024 History of Presen t illness Narrative Images from the original note were not included. Chief complaint: leg weakness Subjective Dayna Valencia, 73 y.o., female Dayna is here for a neurologic consult at the request of Dr. Davis for neurogenic claudication. Patient states she started with bilateral LE pain. This started about one month ago. She states the last week or two this has moved up her legs and into her left hip. She describes this as an aching pain. Walking to far or standing for long periods of time make this worse. She is also now experiencing pain in her left lower back. She describes this as a shooting pain. She also reports aching behind her knees when she is laying down. She denies her legs feeling restless. She denies any imbalance or falls. She reports weakness is her legs. She has been doing some PT exercises at home and she is walking every day. She is unsure if this is helping or making things worse. She states all of her pain is intermittent. She is wondering if a back brace would be helpful. She is also wondering if her weight if affecting symptoms. Review of Systems Constitutional: Negative for appetite change, fatigue and fever. Respiratory: Negative for cough, shortness of breath and wheezing. Cardiovascular: Negative for chest pain, palpitations and leg swelling. Gastrointestinal: Negative for abdominal pain, constipation, diarrhea and nausea. Musculoskeletal: Positive for gait problem. Negative for arthralgias and myalgias. Neurological: Positive for weakness and numbness. Negative for dizziness, tremors and headaches. Past Medical History: Diagnosis Date Migraine ([facility]) Missed 1969 Osteopenia of hip Osteoporosis (CMS/[facility]) 2014 Rectocele Past Surgical History: Procedure Laterality Date CHOLECYSTECTOMY laparoscopic cholecystectomy COLONOSCOPY with sphincterotomy DILATION AND CURETTAGE OF UTERUS 1969 OTHER SURGICAL HISTORY LVB Family History Problem Relation Name Age of Onset Lymphoma Mother Cancer Mother Stomach cancer Father Cancer Father Social History Tobacco Use Smoking status: Never Smokeless tobacco: Never Substance Use Topics Alcohol use: Not on file Allergies: Amoxicillin, Hydrocodone-acetaminophen, and Oxycodone-acetaminophen Vitals: 04/06/24 0940 BP: 132/83 Pulse: 94 SpO2: 94% Body mass index is 35.5 kg/m . weight: 189 lb 6.4 oz Neurologic exam: Mental status: Awake, alert to person, place and time. Recent and remote memory are intact. Language is fluent without aphasia. Attention and concentration are normal. Fund of knowledge is appropriate for level of education. Cranial nerves: CN II: Visual acuity is normal. Visual ventura full to confrontation. CN III, IV, : pupils equal round and reactive to light. Extraocular movements intact. No ptosis present. CN V: Facial sensation is normal. CN VII: Full and symmetric facial movement. CN VIII: Hearing is normal to finger rub bilaterally: CN IX and X: Palate elevates symmetrically. CN XI: Shoulder shrug is normal bilaterally. CN XII: Tongue is midline without atrophy or fasciculation. Motor: RUE Strength deltoid, , biceps , triceps , wrist extensors , wrist flexor , research professor strength 5/5. LUE Strength deltoid , biceps , triceps , wrist extensors , wrist flexor , research professor strength 5/5. RLE Strength illopsoas, quadriceps, tibialis anterior, and gastrocnemius strength 4+/5. LLE Strength illopsoas, quadriceps, tibialis anterior, and gastrocnemius strength 4+/5. Normal tone x4 extremities. Bulk is normal. Sensory: Sensation is intact to light touch throughout Four extremities. Reflexes: RUE biceps reflex 2+ brachioradialis reflex 2+ . LUE biceps reflex 2+ brachioradialis reflex 2+ . RLE knee reflex 0 . LLE knee reflex 0. Wright's sign negative. Coordination: [id number] testing and rapid alternating movements are normal Gait: Normal Review and summary of old records: EMG of the bilateral lower extremities on 03/10/2024: Bilateral S1 radiculopathies which are very mild in degree electrically. Assessment/Plan Diagnoses and all orders for this visit: Weakness of both lower extremities It is my impression that the patient has weakness of the bilateral lower extremities. Patient has EMG findings demonstrating bilateral S1 radiculopathies. The patient has also failed physical therapy. There is progression of the patient's symptoms. There is a dermatomal distribution of symptoms. Reflex changes and exam support the diagnosis of radicular process with concern for compressive lesion which could be debilitating if not correctly identified and treated. Plan: MRI of the lumbar spine without contrast Lumbosacral radiculopathy The patient has lumbosacral radiculopathy identified on EMG. The patient's symptoms are consistent with this. The patient has failed physical therapy. Patient has failed tako-[id number] medication and prescription medication for relief of the symptoms. The symptoms are interfering negatively with the patient's daily life. She is having limited mobility and enjoys walking but is seemingly unable to do so. She really is not open to surgical intervention but does want to explore injection therapy to try to get relief of her symptoms. Plan: Epidural bilaterally at L4 Risks including but not limited to epidural hematoma, contrast reaction, cumulative steroid dosing risks and infection discussed. Patient understands these wishes proceed. Pt has been fully educated on their diagnosis, lab results, treatment options, follow up plan, and return instructions documented in this encounter [facility] 03-18-2024 History of Presen t illness Narrative Images from the original note were not included. HPI Results Additional comments: emg Follow-up Additional comments: Leg pain Last edited by Annie Villar LPN on 03/18/2024 10:19 AM. Subjective Patient ID: Dayna Valencia is a 73 y.o. female who presents for Results (emg) and Follow-up (Leg pain). Pt states she noticed 6 weeks ago her legs felt stiff her legs feel achy and weak, she also states she has some LBP occ. Pt has tried staying active, tylenol,ASA, stretching no help per pt Completed EMG as ordered No change since last ov Leg Pain Current Outpatient Medications on File Prior to Visit Medication Sig Dispense Refill Calcium Carbonate-Vit D-Min (Calcium 600+D3 Plus Minerals) 600-800 MG-UNIT chewable tablet 1 (one) time each day at the same time. Multiple Vitamin (Multi Vitamin) tablet 1 (one) time each day at the same time. No current facility-administered medications on file prior to visit. I have reviewed and reconciled the history and medication list with the patient today. Allergies Allergen Reactions Amoxicillin Other Reaction(s): diarrhea Hydrocodone-Acetaminophen Headache Oxycodone-Acetaminophen Headache Social History Tobacco Use Smoking status: Never Smokeless tobacco: Never Family History Problem Relation Name Age of Onset Lymphoma Mother Cancer Mother Stomach cancer Father Cancer Father Past Medical History: Diagnosis Date Migraine (CMS/HCC) Missed 1969 Osteopenia of hip Osteoporosis (CMS/HCC) 2014 Rectocele Past Surgical History: Procedure Laterality Date CHOLECYSTECTOMY laparoscopic cholecystectomy COLONOSCOPY with sphincterotomy DILATION AND CURETTAGE OF UTERUS 1969 OTHER SURGICAL HISTORY LVB Visit Vitals BP 122/74 Pulse 92 Ht 5' 1.25 Wt 187 lb SpO2 97% BMI 35.05 kg/m Smoking Status Never BSA 1.91 m Review of Systems Objective Physical Exam Neurological: General: No focal deficit present. Mental Status: She is alert and oriented to person, place, and time. Motor: No weakness, tremor, atrophy or abnormal muscle tone. Coordination: Coordination is intact. Gait: Gait is intact. Deep Tendon Reflexes: Reflex Scores: Patellar reflexes are 3+ on the right side and 1+ on the left side. Achilles reflexes are 2+ on the right side and 2+ on the left side. Assessment/Plan Diagnoses and all orders for this visit: Neurogenic claudication - Ambulatory referral to Neurology; Future Follow up in about 6 months (around 09/16/2024) for Routine F/U. documented in this encounter [facility] 03-10-2024 History of Presen t illness Narrative Images from the original note were not included. Reason for Appointment: EMG Patient: Daynajazmín Valencia : 1950 EMG Computer: [email or web address] Referring Physician: Dr. Christian Davis EMG: BLE anatomic pathology manager: Manjit Moctezuma RT(R) Office Location: [place] Reason for EMG: c/o tightness/stiffness in bilateral legs, low back pain. No hx of DM. Not on blood thinners. Comments: Procedure was explained to the patient who expressed understanding. Patient appeared to have tolerated the test well despite some discomfort due to the nature of the test. documented in this encounter [facility] 03-03-2024 History of Presen t illness Narrative Images from the original note were not included. Subjective Patient ID: Dayna Valencia is a 73 y.o. female who presents for Leg Pain. Pt states she noticed 3 weeks ago her legs felt stiff her legs feel achy and weak, she also states she has some LBP occ. Pt has tried staying active, tylenol,ASA, stretching no help per pt Leg Pain Current Outpatient Medications on File Prior to Visit Medication Sig Dispense Refill Calcium Carbonate-Vit D-Min (Calcium 600+D3 Plus Minerals) 600-800 MG-UNIT chewable tablet 1 (one) time each day at the same time. Multiple Vitamin (Multi Vitamin) tablet 1 (one) time each day at the same time. [DISCONTINUED] pneumococcal conjugate 20-valent (Prevnar 20) 0.5 ML vaccine as directed Intramuscular 1 dose for 1 day No current facility-administered medications on file prior to visit. I have reviewed and reconciled the history and medication list with the patient today. Allergies Allergen Reactions Amoxicillin Other Reaction(s): diarrhea Hydrocodone-Acetaminophen Headache Oxycodone-Acetaminophen Headache Social History Tobacco Use Smoking status: Never Smokeless tobacco: Never Family History Problem Relation Name Age of Onset Lymphoma Mother Cancer Mother Stomach cancer Father Cancer Father Past Medical History: Diagnosis Date Migraine (CMS/HCC) Missed 1969 Osteopenia of hip Osteoporosis (CMS/HCC) 2014 Rectocele Past Surgical History: Procedure Laterality Date CHOLECYSTECTOMY laparoscopic cholecystectomy COLONOSCOPY with sphincterotomy DILATION AND CURETTAGE OF UTERUS 1969 OTHER SURGICAL HISTORY LVB Visit Vitals BP 118/70 Pulse 94 Ht 5' 1.25 Wt 188 lb SpO2 97% BMI 35.23 kg/m Smoking Status Never BSA 1.92 m Review of Systems Objective Physical Exam Neurological: General: No focal deficit present. Mental Status: She is alert and oriented to person, place, and time. Motor: No weakness, tremor, atrophy or abnormal muscle tone. Coordination: Coordination is intact. Gait: Gait is intact. Deep Tendon Reflexes: Reflex Scores: Patellar reflexes are 0 on the right side and 1+ on the left side. Achilles reflexes are 0 on the right side and 0 on the left side. Assessment/Plan Diagnoses and all orders for this visit: Neurogenic claudication - EMG 2 Extremities; Future - History OA of spine and DDD by prior xrays. - No pain is noted. Follow up in about 2 weeks (around 03/17/2024) for Test/Lab Review. documented in this encounter [facility] Evaluation note Diagnosis Neurogenic claudication- Primary Spinal stenosis of lumbar region documented in this encounter [facility]* Diagnosis Lumbosacral radiculopathy- Primary Thoracic or lumbosacral neuritis or radiculitis, unspecified Neurogenic claudication Spinal stenosis of lumbar region documented in this encounter [facility]* Diagnosis Neurogenic claudication- Primary Spinal stenosis of lumbar region documented in this encounter [facility]* Diagnosis Weakness of both lower extremities- Primary Lumbosacral radiculopathy Thoracic or lumbosacral neuritis or radiculitis, unspecified documented in this encounter [facility]* Diagnosis Routine general medical examination at health care facility- Primary Routine general medical examination at a health care facility ACP (advance care planning) Other specified counseling Breast screening Breast screening, unspecified Estrogen deficiency Other ovarian failure Morbid (severe) obesity due to excess calories ([facility]) Unilateral primary osteoarthritis, right knee Body mass index (BMI) 35.0-35.9, adult documented in this encounter [facility]* Diagnosis Lumbar radiculopathy- Primary Thoracic or lumbosacral neuritis or radiculitis, unspecified Lumbosacral radiculopathy Thoracic or lumbosacral neuritis or radiculitis, unspecified documented [facility] this encounter [facility]* Diagnosis Pain in both lower extremities- Primary Weakness of both lower extremities Lumbar spondylosis Lumbosacral spondylosis without myelopathy Lumbar radiculopathy Thoracic or lumbosacral neuritis or radiculitis, unspecified documented [facility] this encounter [facility]* Diagnosis Vascular claudication (CMS/HCC)- Primary Pain in both lower extremities Weakness of both lower extremities documented [facility] this encounter [facility] Narrative* Consultation (Routine) - Closed Specialty Diagnoses / Procedures Referred By Contac t Referred To Contact Neurology Diagnoses Neurogenic claudication Procedures MI OFFICE/OUTPATIENT [facility] 60 MINUTES Christian Davis MD [address] [facility] [address] [place] [address] Phone: tel: fax: Kunal Rodriguez DO [address] [place] [address] Phone: tel: fax: Referral ID Status Reason Start Date Expiration Date V isits Requested Visits Authorized [id number] Closed Consult and Treat 03/18/2024 09/14/2024 1 1 [facility]* Injection (Routine) - Closed Specialty Diagnoses / Procedures Referred By Contac t Referred To Contact Neurology Diagnoses Lumbosacral radiculopathy Procedures Nerve Block Kunal Rodriguez DO [address] [place] [address] Phone: tel: fax: Referral ID Status Reason Start Date Expiration Date Visits Re quested Visits Authorized [id number] Closed 04/06/2024 10/03/2024 1 1 [facility] Healthcare Summary Purpose Family History No Family History Records FoundNo Family History Records FoundNo Family History Records FoundNo Family History Records Found Advance Directives No Advanced Directives Records FoundNo Advanced Directives Records FoundNo Advanced Directives Records FoundNo Advanced Directives Records Found Additional Source Comments INFORMATION SOURCE (unrecogn ized section and content) DATE CREATED AUTHOR 03/30/2022 [facility] DATE CREATED AUTHOR AUTHOR'S ORGANIZ ATION 04/11/2024 [facility] DATE CREATED AUTHOR AUTHOR'S ORGANIZ ATION 05/03/2024 [facility] DATE CREATED AUTHOR AUTHOR'S ORGANIZ ATION 06/13/2024 [facility] EPIC Care Teams (unrecognized sec tion and content) Analytical Chemistry Teacher Relationship Specialty Start Date End Date Christian Davis MD [address] [facility] [address] [place] [address] PCP - General Internal Medicine 10/07/22 Elizabeth Davis, HEAD ATHLETIC TRAINER/STRENGTH COACH [address] [place] [address] PCP - ACO Reach 09/30/23 Analytical Chemistry Teacher Relationship Specialty Start Date End Date Christian Davis MD [address] [place] [address] PCP - General Internal Medicine 10/07/22 Elizabeth Davis, HEAD ATHLETIC TRAINER/STRENGTH COACH [address] [place] [address] PCP - ACO Reach 09/30/23 Analytical Chemistry Teacher Relationship Specialty Start Date End Date Christian Davis MD [address] [place] [address] PCP - General Internal Medicine 10/07/22 Elizabeth Davis, HEAD ATHLETIC TRAINER/STRENGTH COACH [address] [place] [address] PCP - ACO Reach 09/30/23 Analytical Chemistry Teacher Relationship Specialty Start Date End Date Christian Davis MD [address] [facility] [address] [place] [address] PCP - General Internal Medicine 10/07/22 Elizabeth Davis, HEAD ATHLETIC TRAINER/STRENGTH COACH [address] [place] [address] PCP - ACO Reach 09/30/23 Analytical Chemistry Teacher Relationship Specialty Start Date End Date Christian Davis MD [address] [place] [address] PCP - General Internal Medicine 10/07/22 Elizabeth Davis, HEAD ATHLETIC TRAINER/STRENGTH COACH [address] [place] [address] PCP - ACO Reach 09/30/23 Analytical Chemistry Teacher Relationship Specialty Start Date End Date Christian Davis MD [address] [address] [place] [address] PCP - General Internal Medicine 10/07/22 Elizabeth Davis, HEAD ATHLETIC TRAINER/STRENGTH COACH [address] [place] [address] PCP - ACO Reach 09/30/23 Analytical Chemistry Teacher Relationship Specialty Start Date End Date Christian Davis MD [address] [place] [address] PCP - General Internal Medicine 10/07/22 Elizabeth Davis, HEAD ATHLETIC TRAINER/STRENGTH COACH [address] [place] [address] PCP - ACO Reach 09/30/23 Analytical Chemistry Teacher Relationship Specialty Start Date End Date Christian Davis MD [address] [address] [place] [address] PCP - General Internal Medicine 10/07/22 Elizabeth Davis, HEAD ATHLETIC TRAINER/STRENGTH COACH [address] [place] [address] PCP - ACO Reach 09/30/23 Analytical Chemistry Teacher Relationship Specialty Start Date End Date Christian Davis MD [address] [place] [address] PCP - General Internal Medicine 10/07/22 Elizabeth Davis NP [address] [place] [address] PCP - ACO Reach 09/30/23 Analytical Chemistry Teacher Relationship Specialty Start Date End Date Christian Davis MD [address] [place] [address] PCP - General Internal Medicine 10/07/22 Elizabeth Davis HEAD ATHLETIC TRAINER/STRENGTH COACH [address] [place] [address] PCP - ACO Reach 09/30/23 Analytical Chemistry Teacher Relationship Specialty Start Date End Date Christian Davis MD [address] [place] [address] PCP - General Internal Medicine 10/07/22 Elizabeth Davis HEAD ATHLETIC TRAINER/STRENGTH COACH [address] [place] [address] PCP - ACO Reach 09/30/23 Analytical Chemistry Teacher Relationship Specialty Start Date End Date Christian Davis MD [address] [place] [address] PCP - General Internal Medicine 10/07/22 Elizabeth Davis HEAD ATHLETIC TRAINER/STRENGTH COACH [address] [place] [address] PCP - ACO Reach 09/30/23 Analytical Chemistry Teacher Relationship Specialty Start Date End Date Christian Davis MD [address] [place] [address] PCP - General Internal Medicine 10/07/22 Elizabeth Davis NP [address] [facility] [address] [place] [address] PCP - ACO Reach 09/30/23 Reason for Visit (unrecogniz ed section and content) Reason Comments Leg Pain Specialty Diagnoses / Procedures Referred By Contac t Referred To Contact Neurology Diagnoses Neurogenic claudication Procedures EMG AND NERVE CONDUCTION STUDY Christian Davis MD [address] [facility] [address] [place] [address] Kunal Rodriguez DO [address] [place] [address] Referral ID Status Reason Start Date Expiration Date V isits Requested Visits Authorized [id number] Closed Perform Procedure 03/08/2024 09/04/2024 1 1 Reason Comments Results emg Follow-up Leg pain Reason Comments Medicare Annual Wellness Visit Subsequen t Reason Comments Extremity Weakness Pain Reason Onset Date Comments Lower extremity ultrasound 06/14/2024 FOR RECORDS PERTAINING TO PATIENTS WHO ARE OR HAVE BEEN ENROLLED IN A CHEMICAL DEPENDENCY/SUBSTANCEABUSE PROGRAM, SOME INFORMATION MAY BE OMITTED. This clinical summary was aggregated from multiple sources. Caution should be exercised in using it in the provision of clinical care. This summary normalizes information from multiple sources, and as a consequence, information in this document may materially change the coding, format and clinical context of patient data. In addition, data may be omitted in some cases. CLINICAL DECISIONS SHOULD BE BASED ON THE PRIMARY CLINICAL RECORDS. [employer] [facility]. provides no warranty or guarantee of the accuracy or completeness of information in this document.
== END 2024-06-20 10:56 | disposition home or self-care (01) ==
LOC: VC 10:55
PROVIDERS: PCP Internal Medicine; Visit Provider Nurse Practitioner Family
DX: I73.9 Peripheral vascular disease, unspecified (principal); M79.604 Pain in right leg; M79.605 Pain in left leg; R29.898 Other symptoms and signs involving the musculoskeletal system
CPT/HCPCS: 93922; 93925

== ENCOUNTER 2025-03-06 14:27 | Outpatient (OUT) | payer MEDICARE, SELFPAY ==
--- OUTSIDE RECORDS SUMMARY | 2025-03-06 14:31 | XMS_ITS | CCD ---
Author Organization [facility] Care Team Providers Care Audit Analyst Name Role Phone DR CHRISTIAN DAVIS Admitting Unavailable ZOEY, DR GARCIA Attending Unavailable ZOEY, DR GARCIA Consulting Unavailable ZOEY, DR GARCIA Primary Care Unavailable MARION, DR INOCENTE Voss Consulting Unavailable ZOEY, DR GARCIA Admitting Unavailable ZOEY, DR GARCIA Attending Unavailable ZOEY, DR GARCIA Primary Care Unavailable Christian Davis MD Primary Care Provider Elizabeth Davis NP Unavailable Kunal Rodriguez Attending Unavailab Kunal Wheeler Admitting Unavailab Christian Richter Primary Care Unavailable Michael ROSARIO Christmyrandaer Unavailable Christian Davis MD Unavailable LULÚ WITT Attending Unavailable KUNAL RODRIGUEZ Attending Unavailable LULÚ WITT Referring Unavailable CHRISTIAN DAVIS Attending Unavailable KUNAL RODRIGUEZ Attending Unavailable CHRISTIAN DAVIS Referring Unavailable CHRISTIAN DAVIS Attending Unavailable KUNAL RODRIGUEZ Attending Unavailable CHRISTIAN DAVIS Referring Unavailable CHRISTIAN DAVIS Attending Unavailable KUNAL RODRIGUEZ Attending Unavailable KUNAL RODRIGUEZ Referring Unavailable LULÚ WITT Attending Unavailable Kunal Rodriguez DO Unavailable [phone] Christian Davis MD Primary Care Provider Michael ROSARIO Christopher Unavailable MOISES, ASHLEY Admitting Unavailable MOISES, ASHLEY Attending Unavailable CHRISTIAN DAVIS Primary Care Unavailable MOISES, ASHLEY Attending Unavailable MOISES, ASHLEY Admitting Unavailable CHRISTIAN DAVIS Primary Care Unavailable MOISES, ASHLEY Admitting Unavailable MOISES, ASHLEY Attending Unavailable CHRISTIAN DAVIS Primary Care Unavailable MOISES, ASHLEY Admitting Unavailable MOISES, ASHLEY Attending Unavailable CHRISTIAN DAVIS Primary Care Unavailable Allergies Allergy Classification Reported Allergen(s) Allergy Type Date of Onset Reaction(s) Facility (20 sources) Acetaminophen / HYDROcodone Drug Allergy 3 Headache, Headaches [facility] (20 sources) Acetaminophen / oxyCODONE Drug Allergy 3 Headache, Headaches [facility] (20 sources) Amoxicillin Drug Allergy 3 [facility] Medications Current Medications Medication Drug Class(es) Dates Sig (Normalized) Sig (Original) acetaminophen 500 mg oral tablet (4 sources) take 1 tablet by mouth every six hours as needed for pain acetaminophen (TYLENOL) 500 MG tablet Take 1 tablet by mouth every 6 hours as needed for Pain Active calcium carbonate 1500 mg oral tablet (4 sources) take 1 tablet by mouth once daily calcium carbonate 600 MG TABS tablet Take 1 tablet by mouth daily Active Calcium Carbonate-Vit D-Min (CALCIUM 600+D3 PLUS MINERALS) 600-800 MG-UNIT CHEW (2 sources) Calcium Carbonat e-Vit D-Min (CALCIUM 600+D3 PLUS MINERALS) 600-800 MG-UNIT CHEW in the morning. Active Calcium Carbonat e-Vit D-Min (CALCIUM 600+D3 PLUS MINERALS) 600-800 MG-UNIT CHEW every 24 hours Active Calcium Carbonate-Vit D-Min (Calcium 600+D3 Plus Minerals) 600-800 MG-UNIT chewable tablet (20 sources) Calcium Carbonat e-Vit D-Min (Calcium 600+D3 Plus Minerals) 600-800 MG-UNIT chewable tablet 1 (one) time each day at the same time. Active meloxicam 7.5 mg oral tablet (8 sources) Nonsteroidal Anti-inflammatory Drug Start: 06-07-19 25 End: 08-07-19 25 take 1 tablet by mouth once daily meloxicam (MOBIC) 7.5 MG tablet Take 1 tablet by mouth daily 07/08/2024 Active Multiple Vitamin (Multi Vitamin) tablet (20 sources) Multiple Vitamin (Multi Vitamin) tablet 1 (one) time each day at the same time. Active Multiple Vitamin (MULTIVITAMIN) TABS tablet (4 sources) take 1 tablet by mouth once daily Multiple Vitamin (MULTIVITAMIN) TABS tablet Take 1 tablet by mouth daily Active vitamin B12 (4 sources) Vitamin B12 take 1 capsule by mouth once daily Cyanocobalamin (VITAMIN B-12 CR PO) Take 1 capsule by mouth daily Active VITAMIN D, CHOLECALCIFEROL, PO (4 sources) take 1 capsule by mouth once daily VITAMIN D, CHOLECALCIFEROL, PO Take 1 capsule by mouth daily Active Completed/Discontinued Medications Medication Drug Class(es) Dates Sig (Normalized) Sig (Original) bupivacaine hydrochloride 2.5 mg/ml injectable solution (8 sources) Amide Local Anesthetic Start: 08-30-2024 End: 08-30-2024 bupivacaine (Marcaine) 0.25 % injection 2.5 mg Start: 08-30-2024 End: 08-30-2024 2.5 mg (1 mL), Injection, On ce, On 08/30/24 at 1230, For 1 dose Start: 08-30-2024 End: 08-30-2024 bupivacaine (Marcaine) 0.25 % injection 2.5 mg Start: 08-30-2024 End: 08-30-2024 2.5 mg (1 mL), Injection, On ce, On e 08/30/24 at 1230, For 1 dose Start: 05-10-2024 End: 05-10-2024 bupivacaine (Marcaine) 0.25 % injection 2.5 mg Start: 05-10-2024 End: 05-10-2024 bupivacaine (Marcaine) 0.25 % injection 2.5 mg Start: 05-10-2024 End: 05-10-2024 2.5 mg (1 mL), Injection, On ce, On 05/10/24 at 1015, For 1 dose Start: 05-10-2024 End: 05-10-2024 2.5 mg (1 mL), Injection, On ce, On e 05/10/24 at 1015, For 1 dose dexamethasone phosphate 10 mg/ml injectable solution (8 sources) Corticosteroid Start: 08-30-2024 End: 08-30-2024 dexAMETHasone sod phos (Decadron) injection 10 mg Start: 08-30-2024 End: 08-30-2024 10 mg (1 mL), Injection, Onc e, On Thu08/30/24 at 1230, For 1 dose Start: 08-30-2024 End: 08-30-2024 dexAMETHasone sod phos (Deca dron) injection 10 mg Start: 08-30-2024 End: 08-30-2024 10 mg (1 mL), Injection, Onc e, On Thu08/30/24 at 1230, For 1 dose Start: 05-10-2024 End: 05-10-2024 dexAMETHasone sod phos [...] (OMNIPaque) 300 MG/M L injection 2 mL (8 sources) Start: 08-30-2024 End: 08-30-2024 iohexol (OMNIPaque) 300 MG/M L injection 2 mL Start: 08-30-2024 End: 08-30-2024 2 mL, Injection, Once in mor ging, Starting on Thu08/30/24 at 1215, For 1 dose Start: 05-10-2024 End: 05-10-2024 iohexol (OMNIPaque) 300 MG/M L injection 2 mL Start: 05-10-2024 End: 05-10-2024 2 mL, Injection, Once in mor ging, Starting on Thu05/10/24 at 1008, For 1 dose Problems Active Problems Problem Classification Problem Date Documented Date Episodic/Chronic Administrative/social admission (2 sources) Patient encounter status; Translations: [Other specified counseling] 04-08-2024 Episodic Menopausal disorders (20 sources) Other primary ovarian failure; 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] Onset: 03-30-2022 04-06-2024 Chronic Osteoarthritis (20 sources) Osteoarthritis of right knee joint; Translations: [Unilateral primary osteoarthritis, right knee] Onset: 04-06-2024 04-06-2024 Chronic Other connective tissue disease (7 sources) Neurogenic claudication; Translations: [Other symptoms and signs involving the nervous system] 03-03-2024 Episodic Other connective tissue disease (7 sources) Other symptoms and signs involving the musculoskeletal system; Translations: [Other musculoskeletal symptoms referable to limbs] 04-06-2024 Episodic Other connective tissue disease (12 sources) Pain in bilateral legs; Translations: [Pain in right leg] 06-07-2024 Episodic Other nutritional; endocrine; and metabolic disorders (20 sources) Body mass index 30+ - obesity; [...] Spondylosis; intervertebral disc disorders; other back problems (19 sources) Lumbosacral radiculopathy; Translations: [Radiculopathy, lumbosacral region] 03-10-2024 Episodic Past or Other Problems Problem Classification Problem Date Documented Da te Episodic/Chronic Mood disorders (20 sources) Mood disorders Onset: 04-07-2023 04-07-2023 Other bone disease and musculoskeletal deformities (20 sources) Osteopenia; Translations: [Other specified disorders of bone density and structure, right thigh] Onset: 04-06-2024 04-06-2024 Episodic Unclassified (5 sources) Weakness of both lower extremities 04-06-2024 Results Test Name Value Interpretation Reference Range Facility [facility] 01-26-2025 Radiology exam is complete. No Radiologist dictation. Please follow up with ordering provider. Final result Doreen Patino MD - 01/26/2025 Radiology exam is complete. No Radiologist dictation. Please follow up with ordering provider. Final result [facility] Radiology Study observation (narrative) [facility] ESOrdered By: Radiologist Radiology on 01-26-2025 [facility] Work Phone: [facility] 01-05-2025 Radiology exam is complete. No Radiologist dictation. Please follow up with ordering provider. Final result Doreen Patino MD - 01/05/2025 Radiology exam is complete. No Radiologist dictation. Please follow up with ordering provider. Final result [facility] Radiology exam is complete. No Radiologist dictation. Please follow up with ordering provider. Final result Normal [facility] Radiology Study observation (narrative) [facility] ESOrdered By: Radiologist Radiology on 01-05-2025 [facility] Work Phone: Guidance-- during surgeryon 01-05-2025 Radiology exam is complete. No Radiologist dictation. Please follow up with ordering provider. [facility]on 12-08-2024 Radiology exam is complete. No Radiologist dictation. Please follow up with ordering provider. Final result MICHELLE RadiologyDoreen MD - 12/08/2024 Radiology exam is complete. No Radiologist dictation. Please follow up with ordering provider. Final result [facility] Radiology exam is complete. No Radiologist dictation. Please follow up with ordering provider. Final result Normal [facility] Radiology Study observation (narrative) [facility] ESOrdered By: Radiologist Radiology on 12-08-2024 [facility] Work Phone: [facility] ESon 11-24-2024 Radiology exam is complete. No Radiologist dictation. Please follow up with ordering provider. Final result [facility] Radiology, Radiologist, - 11/24/2024 Radiology exam is complete. No Radiologist dictation. Please follow up with ordering provider. Final result [facility] Radiology exam is complete. No Radiologist dictation. Please follow up with ordering provider. Final result Normal [facility] Radiology Study observation (narrative) [facility] ESOrdered By: Radiologist Radiology on 11-24-2024 [facility] Work Phone: Guidance-- during surgeryon 11-24-2024 Radiology exam is complete. No Radiologist dictation. Please follow up with ordering provider. [facility] RIS CONSOLIDATED No Panel Informationon 08-30 Kunal Rodriguez DO 08/30/2024 4:26 PM Nerve Block Date/Time: 08/30/2024 12:16 PM Performed by: Kunal Rodriguez DO Authorized by: Lulú Witt NP Consent: Consent obtained: Written Consent given by: Patient Lynn protocol: Procedure explained and questions answered to patient or proxy's satisfaction: yes Patient identity confirmed: Verbally with patient Location: Body area: Trunk Trunk nerve: Lumbar Procedure details: Guidance: fluoroscopy Steroid injected: Dexamethasone Post-procedure details: Procedure completion: Tolerated [facility] ALL MYOGLOBINon 06-09-2024 Myoglobin [Mass/Vol] 73 ng/mL 9 - 82 ng/mL NO [facility] CKon 06-09-2024 CK [Catalytic activity/Vol] 110 U/L 26 - 192 U/L [facility] No Panel Informationon 06-09 [facility] MR lumbar spine wo conon MR lumbar spine wo con [facility] [place] [address] MRI Report Signed Patient: Dayna Valencia MR#: [id number] : 1950 Acct:[id number] Age/Sex: 73 / F ADM Date: 05/02/24 Loc: [facility] Room: Type: [facility] Attending Dr: Kunal Rodrigeuz DO Copies to: Kunal Rodriguez DO Ordering Provider: Kunal Rodriguez DO Date [...] Willis Batista M.D.05/02/2024 5:33 PM Dictation Location: [place] [address] Transcribed By: [facility] 05/02/241732 Dictated By: Willis Batista II, MD 05/02/241726 Signed By: 05/02/241732 Normal [facility] COMPREHENSIVE METABOLIC PANE [facility] 04-09-2024 Albumin [Mass/Vol] 4.1 g/dL Normal 3.6-5.1 [facility] Comment on above: Performed By: #### 1 0231 #### [facility] [place] [address] [employer] Salesperson: Alexandro Zambrano MD Albumin/Globulin [Mass ratio] 1.6 {ratio} Normal 1.0-2.5 [facility] Comment on above: Performed By: #### 1 0231 #### [facility] [place] [address] [employer] Salesperson: Alexandro Zambrano MD ALP [Catalytic activity/Vol] 86 U/L Normal 37-153 [facility] Comment on above: Performed By: #### 1 0231 #### [facility] [place] [address] [employer] Salesperson: Alexandro Zambrano MD ALT [Catalytic activity/Vol] 13 U/L Normal 6-29 [facility] Comment on above: Performed By: #### 1 0231 #### [facility] [place] [address] [employer] Salesperson: Alexandro Zambrano MD AST [Catalytic activity/Vol] 18 U/L Normal 10-35 [facility] Comment on above: Performed By: #### 1 0231 #### [facility] [place] [address] [employer] Salesperson: Alexandro Zambrano MD Bilirubin [Mass/Vol] 0.5 mg/dL Normal 0.2-1.2 [facility] Comment on above: Performed By: #### 1 0231 #### [facility] of [place] [address] [employer] Salesperson: Alexandro Zambrano MD BUN/CREATININE RATIO SEE NOTE: Normal 6-22 [facility] Comment on above: Result Comment: Not Reported: BUN and Creatinine are within reference range. Performed By: #### 1 0231 #### [facility] of [address], [address] [place] [address] [employer] Salesperson: Alexandro Zambrano MD Calcium [Mass/Vol] 9.6 mg/dL Normal 8.6-10.4 [facility] Comment on above: Performed By: #### 1 0231 #### [facility] of [address], [address] [place] [address] [employer] Salesperson: Alexandro Zambrano MD Chloride [Moles/Vol] 109 mmol/L Normal 98-110 [facility] Comment on above: Performed By: #### 1 0231 #### [facility] of [place] [address] [employer] Salesperson: Alexandro Zambrano MD CO2 [Moles/Vol] 26 mmol/L Normal 20-32 [facility] Comment on above: Performed By: #### 1 0231 #### [facility] of [place] [address] [employer] Salesperson: Alexandro Zambrano MD Creatinine [Mass/Vol] 0.93 mg/dL Normal 0.60-1.00 [facility] Comment on above: Performed By: #### 1 0231 #### [facility] of [place] [address] [employer] Salesperson: Alexandro Zambrano MD GFR/1.73 sq M.predicted among non-blacks MDRD (S/P/Bld) [Vol rate/Area] 64 mL/min/{1.73_m2} Normal > OR = 60 [facility] Comment on above: Performed By: #### 1 0231 #### [facility] of [place] [address] [employer] Salesperson: Alexandro Zambrano MD Globulin (S) [Mass/Vol] 2.5 g/dL Normal 1.9-3.7 [facility] Comment on above: Performed By: #### 1 0231 #### [facility] of [place] [address] [employer] Salesperson: Alexandro Zambrano MD Glucose [Mass/Vol] 87 mg/dL Normal 65-99 [facility] Comment on above: Result Comment: Fasting reference interval Performed By: #### 1 0231 #### [facility] of [place] [address] [employer] Salesperson: Alexandro Zambrano MD Potassium [Moles/Vol] 4.4 mmol/L Normal 3.5-5.3 [facility] Comment on above: Performed By: #### 1 0231 #### [facility] [place] [address] [employer] Salesperson: Alexandro Zambrano MD Protein [Mass/Vol] 6.6 g/dL Normal 6.1-8.1 [facility] Comment on above: Performed By: #### 1 0231 #### [facility] [place] [address] [employer] Salesperson: Alexandro Zambrano MD Sodium [Moles/Vol] 141 mmol/L Normal 135-146 [facility] Comment on above: Performed By: #### 1 0231 #### [facility] of [place] [address] [employer] Salesperson: Alexandro Zambrano MD Urea nitrogen [Mass/Vol] 21 mg/dL Normal 7-25 [facility] Comment on above: Performed By: #### 1 0231 #### [facility] of [place] [address] [employer] Salesperson: Alexandro Zambrano MD EMG 2 Extremitieson 03-10-20 24 S1 radic b/l very mild [facility] NVC 9-10 Nerveson 03-10-2024 S1 radic b/l very mild [facility] CBC AUTO DIFFon 03-25-2022 BASO # 0.0 103/ul Normal 0.0-0.1 [facility] Comment on above: Performed By: #### C BC #### [facility] [address] [place] [address] Dr. Lisa Rowan Basophils/100 WBC (Bld) 0.4 % Normal 0.2-2.0 [facility] Comment on above: Performed By: #### C BC #### [facility] [address] [place] [address] Dr. Lisa Rowan EO # 0.2 103/ul Normal 0.0-0.7 [facility] Comment on above: Performed By: #### C BC #### [facility] [address] [place] [address] Dr. Lisa Rowan Eosinophils/100 WBC (Bld) 3.2 % Normal 0.9-7.0 [facility] Comment on above: Performed By: #### C BC #### [facility] [address] [place] [address] Dr. Lisa Rowan Erythrocyte distribution width (RBC) [Ratio] 13.7 % Normal 11.0-15.0 [facility] Comment on above: Performed By: #### C BC #### [facility] [address] [place] [address] Dr. Lisa Rowan Hematocrit (Bld) [Volume fraction] 40.0 % Normal 36.0-48.0 [facility] Comment on above: Performed By: #### C BC #### [facility] [address] [place] [address] Dr. Lisa Rowan Hemoglobin (Bld) [Mass/Vol] 12.9 g/dL Normal 12.0-16.0 [facility] Comment on above: Performed By: #### C BC #### [facility] [address] [place] [address] Dr. Lisa Rowan IG # 0.02 10e3/ul Normal 0.00-0.03 [facility] Comment on above: Performed By: #### C BC #### [facility] [address] [place] [address] Dr. Lisa Rowan IG % 0.3 % Normal 0.0-0.5 [facility] Comment on above: Performed By: #### C BC #### [facility] [address] [place] [address] Dr. Lisa Rowan LYMPH # 1.8 103/ul Normal 1.2-3.8 [facility] Comment on above: Performed By: #### C BC #### [facility] [address] [place] [address] Dr. Lisa Rowan Lymphocytes/100 WBC (Bld) 25.7 % Normal 20.5-60.0 [facility] Comment on above: Performed By: #### C BC #### [facility] [address] [place] [address] Dr. Lisa Rowan MANUAL DIFF REQ NO Normal [facility] Comment on above: Performed By: #### C BC #### [facility] [address] [place] [address] Dr. Lisa Rowan MCH (RBC) [Entitic mass] 32.7 pg Normal 26.7-34.0 [facility] Comment on above: Performed By: #### C BC #### [facility] [address] [place] [address] Dr. Lisa Rowan MCHC (RBC) [Mass/Vol] 32.3 g/dL Normal 29.9-35.2 [facility] Comment on above: Performed By: #### C BC #### [facility] [address] [place] [address] Dr. Lisa Rowan MCV (RBC) [Entitic vol] 101.3 fL Critically high 81.0-99.0 [facility] Comment on above: Performed By: #### C BC #### [facility] [address] [place] [address] Dr. Lisa Rowan MONO # 0.6 103/ul Normal 0.3-0.8 [facility] Comment on above: Performed By: #### C BC #### [facility] [address] [place] [address] Dr. Lisa Rowan Monocytes/100 WBC (Bld) 9.2 % Normal 1.7-12.0 [facility] Comment on above: Performed By: #### C BC #### [facility] [address] [place] [address] Dr. Lisa Rowan NEUT # 4.2 103/ul Normal 1.4-6.5 [facility] Comment on above: Performed By: #### C BC #### [facility] [address] [place] [address] Dr. Lisa Rowan Neutrophils/100 WBC (Bld) 61.2 % Normal 43.0-75.0 [facility] Comment on above: Performed By: #### C BC #### [facility] [address] [place] [address] Dr. Lisa Rowan Platelet mean volume (Bld) [Entitic vol] 9.8 fL Normal 9.5-13.5 [facility] Comment on above: Performed By: #### C BC #### [facility] [address] [place] [address] Dr. Lisa Rowan PLT 257 103/ul Normal 150-450 [facility] Comment on above: Performed By: #### C BC #### [facility] [address] [place] [address] Dr. Lisa Rowan RBC 3.95 106/ul Critically low 4.20-5.40 [facility] Comment on above: Performed By: #### C BC #### [facility] [address] [place] [address] Dr. Lisa Rowan WBC 6.8 103/ul Normal 4.0-11.0 [facility] Comment on above: Performed By: #### C BC #### [facility] [address] [place] [address] Dr. Lisa Rowan LIPID PROFILEon 03-25-2022 CHOL-HDL RATIO NORM SEE BELOW Normal [facility] Comment on above: Result Comment: 3.3 - 4.4 LOW RISK 4.4 - 7.1 AVERAGE RISK 7.1 - 11.0 MODERATE RISK >11.0 HIGH RISK Performed By: #### L IPID, CMP #### [facility] [address] [place] [address] [address] Lisa Rowan Cholesterol [Mass/Vol] 170 mg/dL Normal <=200 [facility] Comment on above: Performed By: #### L IPID, CMP #### [facility] [address] [place] [address] [address] iLsa Rowan Cholesterol in HDL [Mass/Vol] 66 mg/dL Critically high 40-60 [facility] Comment on above: Performed By: #### L IPID, CMP #### [facility] [address] [address] [address] Lisa Rowan Cholesterol in LDL [Mass/Vol] 92.8 mg/dL Normal [facility] Comment on above: Performed By: #### L IPID, CMP #### [facility] [address] [place] [address] [address] Lisa Rowan Cholesterol.total/Cho lesterol in HDL [Mass ratio] 2.6 {ratio} Normal [facility] Comment on above: Performed By: #### L IPID, CMP #### [facility] [address] [place] [address] [address] Lisa Rowan HDL NORMAL > or = 60 mg/dl - LOW CARDIOVASCULAR RISK <40 mg/dl - HIGH CARDIOVASCULAR RISK Normal [facility] Comment on above: Performed By: #### L IPID, CMP #### [facility] [address] [place] [address] [address] Lisa Rowan LDL CALC NORMAL SEE BELOW Normal [facility] Comment on above: Result Comment: <100 mg/dl OPTIMAL 100 - 129 mg/dl NEAR OR ABOVE OPTIMAL 130 - 159 mg/dl BORDERLINE HIGH 160 - 189 mg/dl HIGH >190 mg/dl VERY HIGH Performed By: #### L IPID, CMP #### [facility] [address] [place] [address] [address] Lisa Rowan Triglyceride [Mass/Vol] 56 mg/dL Normal <=150 [facility] Comment on above: Performed By: #### L IPID, CMP #### [facility] [address] [place] [address] [address] Lisa Rowan VLDL CALC 11.2 mg/dL Normal [facility] Comment on above: Performed By: #### L IPID, CMP #### [facility] [address] [address] [address] Lisa Rowan MG MAMM SCREEN 3D MARIO CADon 03-25-2022 MG MAMM SCREEN 3D MARIO CAD Patient: DAYNA VALENCIA Exam Date: 03/25/2022 : 1950 Gender:F Ordering : DR CHRISTIAN DAVIS M.D. Admission #: [id number] Family : Order #: [id number] CLICK HERE TO VIEW EXAM RADIOLOGY REPORT [...] stomach cancer at age 66. LOCATION: [facility] BREAST COMPOSITION: Scattered areas fibroglandular density. FINDINGS: [...] Alas MD on 03/25/2022 at 12:25 Normal [facility] PROF 14(COMP METB)on 022 Albumin [Mass/Vol] 3.5 g/dL Normal 3.4-5.0 [place] Comment on above: Performed By: #### L CARLOS, CMP #### [facility] [address] [address] [address] Lisa Rowan Albumin/Globulin [Mass ratio] 1.0 {ratio} Normal [facility] Comment on above: Performed By: #### L IPID, CMP #### [facility] [address] [address] [address] Lisa Rowan ALP [Catalytic activity/Vol] 96 U/L Normal 46-116 [facility] Comment on above: Performed By: #### L IPID, CMP #### [facility] [address] [address] [address] Lisa Rowan ALT [Catalytic activity/Vol] 24 U/L Normal 14-59 [facility] Comment on above: Performed By: #### L IPID, CMP #### [facility] [address] [address] [address] Lisa Rowan Anion gap [Moles/Vol] 10.2 mmol/L Normal [facility] Comment on above: Performed By: #### L IPID, CMP #### [facility] [address] [place] [address] Dr. Lisa Rowan AST [Catalytic activity/Vol] 17 U/L Normal 15-37 [facility] Comment on above: Performed By: #### L IPID, CMP #### [facility] [address] [place] [address] Dr. Lisa Rowan Bilirubin [Mass/Vol] 0.6 mg/dL Normal 0.2-1.0 [facility] Comment on above: Performed By: #### L IPID, CMP #### [facility] [address] [address] [address] Lisa Rowan Calcium [Mass/Vol] 9.3 mg/dL Normal 8.5-10.1 [place] Comment on above: Performed By: #### L IPID, CMP #### [facility] [address] [place] [address] Dr. Lisa Rowan Chloride [Moles/Vol] 106 mmol/L Normal 98-107 [facility] Comment on above: Performed By: #### L IPID, CMP #### [facility] [address] [address] [address] Lisa Rowan CO2 [Moles/Vol] 28.8 mmol/L Normal 21.0-32.0 [facility] Comment on above: Performed By: #### L IPID, CMP #### [facility] [address] [address] [address] Lisa Rowan Creatinine [Mass/Vol] 0.89 mg/dL Normal 0.55-1.02 [facility] Comment on above: Performed By: #### L IPID, CMP #### [facility] [address] [address] [address] Lisa Rowan EGFR-AF [place]THER[place]ISH >60 Normal >=60 [facility] Comment on above: Performed By: #### L IPID, CMP #### [facility] [address] [address] [address] Lisa Rowan EGFR-NON AF [place]THER[place] >60 Normal >=60 [facility] Comment on above: Performed By: #### L IPID, CMP #### [facility] [address] [address] [address] Lisa Rowan Globulin (S) [Mass/Vol] 3.6 g/dL Normal [facility] Comment on above: Performed By: #### L IPID, CMP #### [facility] [address] [address] [address] Lisa Rowan Glucose [Mass/Vol] 87 mg/dL Normal 74-106 [facility] Comment on above: Performed By: #### L IPID, CMP #### [facility] [address] [address] [address] Lisa Rowan Potassium [Moles/Vol] 4.0 mmol/L Normal 3.5-5.1 [facility] Comment on above: Performed By: #### L IPID, CMP #### [facility] [address] [address] [address] Lisa Rowan Protein [Mass/Vol] 7.1 g/dL Normal 6.4-8.2 [facility] Comment on above: Performed By: #### L IPID, CMP #### [facility] [address] [address] [address] Lisa Rowan Sodium [Moles/Vol] 141 mmol/L Normal 136-145 [facility] Comment on above: Performed By: #### L IPID, CMP #### [facility] [address] [address] [address] Lisa Rowan Urea nitrogen [Mass/Vol] 19.0 mg/dL Critically high 7.0-18.0 [facility] Comment on above: Performed By: #### L IPID, CMP #### [facility] [address] [address] [address] Lisa Rowan Urea nitrogen/Creatinine [Mass ratio] 21.3 mg/mg Normal [facility] Comment on above: Performed By: #### L IPID, CMP #### [facility] [address] [address] [address] Lisa Rowan XR DEXA BONE DENSITYon 03-25 XR DEXA BONE DENSITY EXAMINATION: XR DEXA BONE DENSITY, 03/25/2022 11:01 AM EDT HISTORY: Primary ovarian failure COMPARISON: 2019, 2017, 2012, 2009, 2006 TECHNIQUE: Dual-energy X-ray [...] by: INOCENTE ALAS Date: 2022-03-25 12:18 Normal [facility] Vital Signs Date Time Vital Sign Value Performing Clinician Rach alfonso 01-26-2025 13:00-0400 Body temperature 97.39 [degF] Ashley Evanston DO [facility] 01-26-2025 13:00-0400 Diastolic blood pressure 62 mm[Hg] Ashley Evanston DO [facility] 01-26-2025 13:00-0400 Heart rate 71 /min Ashley Evanston DO Work Phone: [facility] [employer] 01-26-2025 13:00-0400 Respiratory rate 18 /min Ashley Moises DO Work Phone: [employer] 01-26-2025 13:00-0400 SaO2% (BldA) [Mass fraction] 99 % Ashley Evanston DO Work Phone: [facility] [employer] 01-26-2025 13:00-0400 Systolic blood pressure 117 mm[Hg] Ashley Evanston DO Work Phone: [facility] [employer] 01-26-2025 11:46-0400 Body height 157.5 cm Ashley Moises DO Work Phone: [facility] [employer] 01-26-2025 11:46-0400 Body mass index (BMI) [Ratio] 34.07 kg/m2 Ashlye Moises DO Work Phone: [facility] [employer] 01-26-2025 11:46-0400 Body weight 84.5 kg Ashley Moises DO Work Phone: [facility] [employer] 01-05-2025 15:30-0400 Body temperature 96.91 [degF] Ashley Moises DO Work Phone: [facility] [employer] 01-05-2025 15:30-0400 Diastolic blood pressure 64 mm[Hg] Ashley Moises DO Work Phone: [facility] [employer] 01-05-2025 15:30-0400 Heart rate 77 /min Ashley Evanston DO Work Phone: [facility] [employer] 01-05-2025 15:30-0400 Respiratory rate 18 /min Ashley Evanston DO Work Phone: [facility] [employer] 01-05-2025 15:30-0400 SaO2% (BldA) [Mass fraction] 97 % Ashley Evanston DO Work Phone: [facility] [employer] 01-05-2025 15:30-0400 Systolic blood pressure 131 mm[Hg] Ashley Evanston DO Work Phone: [facility] [employer] 01-05-2025 14:19-0400 Body height 157.5 cm Ashley Moises DO Work Phone: [facility] [employer] 01-05-2025 14:19-0400 Body mass index (BMI) [Ratio] 34.09 kg/m2 Ashley Moises DO Work Phone: [facility] [employer] 01-05-2025 14:19-0400 Body weight 84.55 kg Ashley Moises DO Work Phone: [facility] [employer] 12-08-2024 12:52-0400 Body temperature 97.5 [degF] Ashley Moises DO Work Phone: [facility] [employer] 12-08-2024 12:52-0400 Diastolic blood pressure 69 mm[Hg] Ashley Evanston DO Work Phone: [facility] [employer] 12-08-2024 12:52-0400 Heart rate 74 /min Ashley Evanston DO Work Phone: [facility] [employer] 12-08-2024 12:52-0400 Respiratory rate 16 /min Ashley Moises DO Work Phone: [facility] [employer] 12-08-2024 12:52-0400 SaO2% (BldA) [Mass fraction] 98 % Ashley Evanston DO Work Phone: [facility] [employer] 12-08-2024 12:52-0400 Systolic blood pressure 137 mm[Hg] Ashley Evanston DO Work Phone: [facility] [employer] 12-08-2024 11:41-0400 Body weight 84.73 kg Ashley Moises DO Work Phone: [facility] [employer] 11-24-2024 14:49-0400 Body temperature 98.1 [degF] Ashley Moises DO Work Phone: [facility] [employer] 11-24-2024 14:49-0400 Diastolic blood pressure 68 mm[Hg] Ashley Moises DO [facility] Phone[facility] 11-24-2024 14:49-0400 Heart rate 77 /min Ashley Moises DO [facility] 11-24-2024 14:49-0400 Respiratory rate 16 /min Ashley Moises DO [facility] Phone[facility] 11-24-2024 14:49-0400 SaO2% (BldA) [Mass fraction] 98 % Ashley Moises DO Work Phone[facility] 11-24-2024 14:49-0400 Systolic blood pressure 141 mm[Hg] Ashley Evanston DO Work Phone: [facility] 08-30-2024 09:49-0400 Diastolic blood pressure 82 mm[Hg] Christopher Michael DO Work Phone: [facility] 08-30-2024 09:49-0400 Heart rate 101 /min Christopher Michael DO Work Phone: [facility] 08-30-2024 09:49-0400 SaO2% (BldA) [Mass fraction] 98 % Christopher Michael DO Work Phone: [facility] 08-30-2024 09:49-0400 Systolic blood pressure 126 mm[Hg] Christopher Michael DO Work Phone: [facility] 07-07-2024 14:37-0500 Body mass index (BMI) [Ratio] 35.8 kg/m2 Lulú Witt [employer] Work Phone: [facility] 07-07-2024 14:37-0500 Body weight 86.64 kg Lulú Witt [employer] Work Phone: [facility] 07-07-2024 14:37-0500 Diastolic blood pressure 80 mm[Hg] Lulú Witt [employer] Work Phone: [facility] 07-07-2024 14:37-0500 Heart rate 79 /min Lulú Witt [employer] Work Phone: [facility] 07-07-2024 14:37-0500 SaO2% (BldA) [Mass fraction] 99 % Lulú Witt [employer] Work Phone: [facility] 07-07-2024 14:37-0500 Systolic blood pressure 132 mm[Hg] Lulú Witt [employer] Work Phone: [facility] 06-07-2024 15:47-0500 Body mass index (BMI) [Ratio] 36.17 kg/m2 Lulú Witt [employer] Work Phone: [facility] 06-07-2024 15:47-0500 Body weight 87.54 kg Lulú Witt [employer] Work Phone: [facility] 06-07-2024 15:47-0500 Diastolic blood pressure 78 mm[Hg] Lulú Witt [employer] Work Phone: [facility] 06-07-2024 15:47-0500 Systolic blood pressure 130 mm[Hg] Lulú Witt [employer] Work Phone: [facility] 05-10-2024 09:36-0500 Diastolic blood pressure 86 mm[Hg] Christopher Michael DO Work Phone: [facility] 05-10-2024 09:36-0500 Heart rate 97 /min Christopher Michael DO Work Phone: [facility] 05-10-2024 09:36-0500 SaO2% (BldA) [Mass fraction] 92 % Christopher Michael DO Work Phone: [facility] 05-10-2024 09:36-0500 Systolic blood pressure 144 mm[Hg] Christopher Michael DO Work Phone: [facility] 04-08-2024 10:08-0500 Body height 155.6 cm Christian Davis MD Work Phone: [facility] 04-08-2024 10:08-0500 Body mass index (BMI) [Ratio] 35.42 kg/m2 Christian Davis MD Work Phone: [facility] 04-08-2024 10:08-0500 Body weight 85.73 kg Christian Davis MD Work Phone: [facility] 04-08-2024 10:08-0500 Diastolic blood pressure 68 mm[Hg] Christian Davis MD Work Phone: [facility] 04-08-2024 10:08-0500 Heart rate 83 /min Christian Davis MD Work Phone: [facility] 04-08-2024 10:08-0500 SaO2% (BldA) [Mass fraction] 97 % Christian Davis MD Work Phone: [facility] 04-08-2024 10:08-0500 Systolic blood pressure 122 mm[Hg] Christian Davis MD Work Phone: [facility] 04-06-2024 09:40-0500 Body mass index (BMI) [Ratio] 35.5 kg/m2 Christopher Michael DO Work Phone: [facility] 04-06-2024 09:40-0500 Body weight 85.91 kg Christopher Michael DO Work Phone: [facility] 04-06-2024 09:40-0500 Diastolic blood pressure 83 mm[Hg] Christopher Michael DO Work Phone: [facility] 04-06-2024 09:40-0500 Heart rate 94 /min Christopher Michael DO Work Phone: [facility] 04-06-2024 09:40-0500 SaO2% (BldA) [Mass fraction] 94 % Christopher Michael DO Work Phone: [facility] 04-06-2024 09:40-0500 Systolic blood pressure 132 mm[Hg] Christopher Michael DO Work Phone: [facility] 03-18-2024 10:19-0400 Body height 155.6 cm Christian Davis MD Work Phone: [facility] 03-18-2024 10:19-0400 Body mass index (BMI) [Ratio] 35.05 kg/m2 Christian Davis MD Work Phone: [facility] 03-18-2024 10:19-0400 Body weight 84.82 kg Christian Davis MD Work Phone: [facility] 03-18-2024 10:19-0400 Diastolic blood pressure 74 mm[Hg] Christian Davis MD Work Phone: [facility] 03-18-2024 10:19-0400 Heart rate 92 /min Christian Davis MD Work Phone: [facility] 03-18-2024 10:19-0400 SaO2% (BldA) [Mass fraction] 97 % Christian Davis MD Work Phone: [facility] 03-18-2024 10:19-0400 Systolic blood pressure 122 mm[Hg] Christian Davis MD Work Phone: [facility] 03-03-2024 11:05-0400 Body height 155.6 cm Christian Davis MD Work Phone: [facility] 03-03-2024 11:05-0400 Body mass index (BMI) [Ratio] 35.23 kg/m2 Christian Davis MD Work Phone: [facility] 03-03-2024 11:05-0400 Body weight 85.28 kg Christian Davis MD Work Phone: [facility] 03-03-2024 11:05-0400 Diastolic blood pressure 70 mm[Hg] Christian Davis MD Work Phone: [facility] 03-03-2024 11:05-0400 Heart rate 94 /min Christian Davis MD Work Phone: [facility] 03-03-2024 11:05-0400 SaO2% (BldA) [Mass fraction] 97 % Christian Davis MD Work Phone: [facility] 03-03-2024 11:05-0400 Systolic blood pressure 118 mm[Hg] Christian Davis MD Work Phone: [facility] Encounters Encounter Date Encounter Type Care Provider Facility Start: 01-26-2025 End: 01-26-2025 Clinisync Result Encounter Generic External Data Provider [facility] External Department Unsolicited Start: 01-26-2025 End: 01-26-2025 Clinisync Result Encounter Generic External Data Provider [facility] External Department Unsolicited Start: 01-26-2025 End: 01-26-2025 [facility] Start: 01-26-2025 End: 01-26-2025 Subsequent hospital visit by physician Ashley De Leon DO Work Phone: [facility] Start: 01-05-2025 End: 01-05-2025 Clinisync Result Encounter Generic External Data Provider [facility] External Department Unsolicited Start: 01-05-2025 End: 01-05-2025 Clinisync Result Encounter Generic External Data Provider [facility] External Department Unsolicited Start: 01-05-2025 End: 01-05-2025 [facility] Start: 01-05-2025 End: 01-05-2025 Subsequent hospital visit by physician Ashley Frankel Phone: [facility] Start: 12-08-2024 End: 12-08-2024 Clinisync Result Encounter Generic External Data Provider [facility] External Department Unsolicited Start: 12-08-2024 End: 12-08-2024 Clinisync Result Encounter Generic External Data Provider [facility] External Department Unsolicited Start: 12-08-2024 End: 12-08-2024 [facility] Start: 12-08-2024 End: 12-08-2024 Subsequent hospital visit by physician Ashley De Leon DO Work Phone: [facility] Start: 11-24-2024 End: 11-24-2024 Clinisync Result Encounter Generic External Data Provider [facility] External Department Unsolicited Start: 11-24-2024 End: 11-24-2024 Clinisync Result Encounter Generic External Data Provider [facility] External Department Unsolicited Start: 11-24-2024 End: 11-24-2024 [facility] Start: 11-24-2024 End: 11-24-2024 Subsequent hospital visit by physician Ashley De Leon DO Work Phone: [facility] Start: 08-30-2024 End: 08-30-2024 Bamboo flowsheet Kunal Priceett DO Work Phone: [facility] Start: 08-30-2024 End: 08-30-2024 Bamboo flowsheet Kunal Priceett DO Work Phone: [facility] Start: 08-30-2024 End: 08-30-2024 Patient encounter procedure Kunal Rodriguez DO Work Phone: [facility] Comment on above: Lumbar radiculopathy (Primary Dx); Pain in both lower extremities; Lumbar spondylosis; Lumbosacral radiculopathy Start: 08-30-2024 End: 08-30-2024 ambulatory STANFORDJORDEN RODRIGUEZ Not Available Start: 07-07-2024 End: 07-07-2024 Office outpatient visit 15 minutes Lulú Perezoll [employer] Work Phone: [facility] Comment on above: Pain in both lower e xtremities (Primary Dx); Weakness of both lower extremities; Lumbar spondylosis; Lumbosacral radiculopathy Start: 07-07-2024 End: 07-07-2024 ambulatory LULÚ WITT Not Available Start: 07-07-2024 End: 07-07-2024 Bamboo flowsheet Lulú Witt [employer] Work Phone: [facility] Start: 07-07-2024 End: 07-07-2024 Bamboo flowsheet Lulú Witt [employer] Work Phone: [facility] Start: 06-14-2024 End: 06-16-2024 Telephone encounter Griselda REYES Comment on above: Lower extremity ultr asound Start: 06-09-2024 End: 06-09-2024 Clinisync Result Encounter Lulú Witt [employer] Work Phone: [facility] Unsolicited Start: 06-09-2024 End: 06-09-2024 Clinisync Result Encounter Lulú Witt [employer] Work Phone: [facility] Unsolicited Start: 06-07-2024 End: 06-07-2024 Office outpatient visit 25 minutes Lulú Witt [employer] Work Phone: [facility] Comment on above: Pain in both lower e xtremities (Primary Dx); Weakness of both lower extremities; Lumbar spondylosis; Lumbar radiculopathy Start: 06-07-2024 End: 06-07-2024 ambulatory LULÚ WITT Not Available Start: 06-07-2024 End: 06-07-2024 Bamboo flowsheet Lulú Witt [employer] Work Phone: [facility] Start: 06-07-2024 End: 06-07-2024 Bamboo flowsheet Lulú Witt [employer] Work Phone: [facility] Start: 05-10-2024 End: 05-10-2024 Patient encounter procedure Kunal Rodriguez DO Work Phone: [facility] Comment on above: Lumbar radiculopathy (Primary Dx); Lumbosacral radiculopathy Start: 05-10-2024 End: 05-10-2024 ambulatory KUNAL RODRIGUEZ Not Available Start: 05-02-2024 End: 05-02-2024 ambulatory Kunal Rodriguez Facility:[facility] Start: 04-08-2024 End: 04-08-2024 Bamboo flowsheet Christian [...] obesity due to excess calories ([facility]); Unilateral primary osteoarthritis, right knee; Body mass index (BMI) 35.0-35.9, adult Start: 04-08-2024 End: 04-08-2024 ambulatory CHRISTIAN DAVIS Not Available Start: 04-06-2024 End: 04-06-2024 Bamboo flowsheet Kunal Rodriguez DO Work Phone: [employer] [facility] Start: 04-06-2024 End: 04-06-2024 Bamboo flowsheet Kunal Rodriguez DO Work Phone: [employer] [facility] Start: 04-06-2024 End: 04-06-2024 Office outpatient new 45 minutes Kunal Rodriguez DO Work Phone: [employer] [facility] Comment on above: Weakness of both low [...] encounter procedure Kunal Rodriguez DO Work Phone: [employer] [facility] Comment on above: Lumbosacral radiculo albin (Primary Dx); Neurogenic claudication Start: 03-10-2024 End: 03-10-2024 ambulatory KUNAL RODRIGUEZ Not Available Start: 03-03-2024 End: 03-03-2024 Bamboo flowsheet Christian Davis MD Work Phone: [facility] Start: 03-03-2024 End: 03-03-2024 Bamboo flowsheet Christian Davis MD Work Phone: [facility] Start: 03-03-2024 End: 03-03-2024 Office outpatient visit 15 minutes Christian Daivs MD Work Phone: [facility] Comment on above: Neurogenic claudicat ion (Primary Dx) Start: 03-03-2024 End: 03-03-2024 ambulatory CHRISTIAN DAVIS Not Available Start: 03-30-2022 Encounter for genera l adult medical examination without abnormal findings DR CHRISTIAN DAVIS [facility] Start: 03-25-2022 End: 03-26-[address] CHRISTIAN DAVIS Facility:[facility] Start: 03-25-2022 End: 03-26-2022 Encounter for general adult medical examination without abnormal findings DR CHRISTIAN DAVIS Facility:[facility] Start: 11-13-[address] CHRISTIAN DAVIS Facilit y:[facility] Procedures Date Procedure Procedure Detail Performing Clinician Start: 01-26-2025 FLUORO FOR SURGICAL PROCEDURES Generic External Data Provider Start: 01-05-2025 FLUORO FOR SURGICAL PROCEDURES Generic External Data Provider Start: 01-05-2025 Fluoroscopy during operation Ashley Moises DO Work Phone: Start: 12-08-2024 FLUORO FOR SURGICAL PROCEDURES Generic External Data Provider Start: 11-24-2024 FLUORO FOR SURGICAL PROCEDURES Generic External Data Provider Start: 11-24-2024 Fluoroscopy during operation Ashley Moises DO Work Phone: Start: 08-30-2024 NERVE BLOCK Lulú Perez oll [employer] Work Phone: Start: 06-09-2024 ALL MYOGLOBIN Lulú Car roll [employer] Work Phone: Start: 06-09-2024 [facility] Lulú Perez oll [employer] Work Phone: Start: 03-10-2024 End: 03-10-2024 Needle emg ea extremty w/paraspinl area complete Christian Davis MD Work Phone: Start: 07-20-2012 Colonoscopy Christian arthur MD Work Phone: Plan of Treatment Date Care Activity Detail Author Start: 04-08-2025 Medicare Annual Wellness (AWV) Medicare Annual Wellness (AWV) [facility] Start: 03-23-2025 Screening for malignant neoplasm of colon [facility] Start: 02-20-2025 End: 02-20-2025 Patient encounter procedure 02/20/2025 10:40 AM EDT Office Visit [facility] [address] [place] [address] Jessica Gonsales, EAR MOLD LABORATORY TECHNICIAN - [employer] SALES TRAINER [address] [place] [id number] RFA fu [facility] Comment on above: RFA fu Start: 01-30-2025 Influenza vaccination Influenza Vacc ine (#1) [facility] Start: 01-26-2025 End: 01-26-2025 Admission to same day surgery center 01/26/2025 12:33 PM EDT - 01/26/2025 12:58 PM EDT Surgery [facility] [address] [place] [id number] Ashley De Leon, DO [address] [place], [place] [id number] LEFT LUMBAR L3, L4, L5 RADIO FREQUENCY ABLATION [facility] Comment on above: LEFT LUMBAR L3, L4, L5 RADIO FREQUENCY ABLATION Start: 01-26-2025 End: 01-26-2025 Dstr nrolytc agnt parverteb fct sngl lmbr/sacral [facility] Start: 01-26-2025 Subsequent hospital visit by physician 01/26/2025 12:33 PM EDT Hospital Encounter [facility] [address] [place] [address] EvanstonAshley smith, DO [address] [place], [place] [id number] [facility] Start: 01-17-2025 End: 01-17-2025 Patient encounter procedure 01/17/2025 10:00 AM EDT Office Visit [facility] [id number] Kunal Rodriguez [address] [place] [address] [facility] Start: 01-09-2025 End: 01-09-2025 Patient encounter procedure 01/09/2025 1:30 PM EDT Office Visit [facility] [address] [id number] Jessica Gonsales, EAR MOLD LABORATORY TECHNICIAN - [employer] SALES TRAINER [address] [facility] [address] [place], [place] [id number] MBB f/u [facility] Comment on above: MBB f/u Start: 01-05-2025 End: 01-05-2025 Dstr nrolytc agnt parverteb fct sngl lmbr/sacral LUMBAR RADIO FREQUENCY ABLATION Lumbosacral spondylosis without myelopathy 01/05/2025 3:11 PM EDT [facility] Start: 12-30-2024 Influenza vaccination Flu vaccine (# 1) Brian Chahal [facility] Start: 12-22-2024 End: 12-22-2024 Patient encounter procedure 12/22/2024 9:00 AM EDT [facility] [facility] [address] [id number] Ashley De Leon, DO [address] [place] [address] MBB f/u [facility] Comment on above: MBB f/u Start: 12-12-2024 End: 12-12-2024 Patient encounter procedure 12/12/2024 10:40 AM EDT Office Visit [facility] [address] [phone] Lulú Witt, BOTTOM CAGER [address] [place] [address] [facility] Start: 12-08-2024 End: 12-08-2024 Admission to same day surgery center 12/08/2024 12:00 PM EDT - 12/08/2024 12:08 PM EDT Surgery [facility] [address] [place] [address] Ashley De Leon, DO [address] [place] [address] BILATERAL LUMBAR L3, L4, L5 MEDIAL BRANCH BLOCK [facility] OR Comment on above: BILATERAL LUMBAR L3, L4, L5 MEDIAL BRANCH BLOCK Start: 12-08-2024 End: 12-08-2024 Njx dx/ther agt pvrt facet jt lmbr/sac 1 level [facility] Start: 12-08-2024 Subsequent hospital visit by physician 12/08/2024 12:00 PM EDT Hospital Encounter [facility] [address] [place] [address] Ashley De Leon, DO [address] [place] [address] [facility] Start: 11-24-2024 End: 11-24-2024 Njx dx/ther agt pvrt facet jt lmbr/sac 1 level NERVE BLOCK BILATERAL Lumbosacral spondylosis without myelopathy 11/24/2024 2:37 PM EDT [facility] Start: 11-10-2024 Annual Wellness Visi t (Medicare) Annual Wellness Visit (Medicare) [facility] Start: 08-30-2024 End: 06-07-2025 Nerve Block Nerve Block Procedures Routine Pain in both lower extremities Lumbar spondylosis Lumbar radiculopathy Expected: 08/30/2024 (Approximate), Expires: 06/07/2025 [facility] Comment on above: Expected: 08/30/2024 (Approximate), Expires: 06/07/2025 Start: 08-30-2024 End: 08-30-2024 Patient encounter procedure [facility] [address] Comment on above: Arrived Start: 08-22-2024 End: 08-22-2024 Patient encounter procedure [facility] [address] [facility] Start: 07-07-2024 End: 07-07-2024 Patient encounter procedure [facility] Comment on above: Arrived Start: 06-16-2024 End: 06-16-2026 US.doppler Lower extremity artery - bilateral Vascular US lower extremity arterial duplex bilateral with ELZA Vascular Ultrasound Routine Vascular claudication (CMS/HCC) Pain in both lower extremities Weakness of both lower extremities Expected: 06/16/2024 (Approximate), Expires: 06/16/2026 [facility] Work Phone: Comment on above: Expected: 06/16/2024 (Approximate), Expires: 06/16/2026 Start: 06-07-2024 End: 06-07-2024 Patient encounter procedure 06/07/2024 4:00 PM EST Office Visit [facility] [address] [place] [address] Lulú Witt NP [address] [place] [phone] Arrived [facility] Comment on above: Arrived Start: 06-07-2024 End: 06-07-2025 Aldolase Aldolase Lab Routine Weakness of both lower extremities Expected: 06/07/2024 (Approximate), Expires: 06/07/2025 [facility] Comment on above: Expected: 06/07/2024 (Approximate), Expires: 06/07/2025 Start: 06-07-2024 End: 06-07-2025 Creatine kinase [Enzymatic activity/volume] in Serum or Plasma CK Lab Routine Weakness of both lower extremities Expected: 06/07/2024 (Approximate), Expires: 06/07/2025 [facility] Work Phone: Comment on above: Expected: 06/07/2024 (Approximate), Expires: 06/07/2025 Start: 06-07-2024 End: 06-07-2025 Myoglobin, serum Myoglobin, serum Lab Routine Weakness of both lower extremities Expected: 06/07/2024 (Approximate), Expires: 06/07/2025 [facility] Comment on above: Expected: 06/07/2024 (Approximate), Expires: 06/07/2025 Start: 06-07-2024 End: 06-07-2026 US.doppler Lower extremity artery - bilateral Vascular US lower extremity arterial duplex bilateral with ELZA Vascular Ultrasound Routine Pain in both lower extremities Weakness of both lower extremities Expected: 06/07/2024 (Approximate), Expires: 06/07/2026 [facility] Comment on above: Expected: 06/07/2024 (Approximate), Expires: 06/07/2026 Start: 05-10-2024 End: 05-10-2024 Patient encounter procedure 05/10/2024 10:00 AM EST Office Visit [facility] [address] [address] Kunal Rodriguez DO [address] [place] [id number] [facility] Start: 04-08-2024 End: 04-08-2025 Comprehensive metabolic 2000 panel - Serum or Plasma Comprehensive metabolic panel Lab Routine Routine general medical examination at health care facility Morbid (severe) obesity due to excess calories (CMS/[facility]) Unilateral primary osteoarthritis, right knee Expected: 04/08/2024 (Approximate), Expires: 04/08/2025 [facility] Comment on above: Expected: 04/08/2024 (Approximate), Expires: 04/08/2025 Start: 04-08-2024 End: 04-08-2025 DXA Skeletal system Views for bone density DEXA bone density Imaging Routine Estrogen deficiency Expected: 04/08/2024 (Approximate), Expires: 04/08/2025 [facility] Work Phone: Comment on above: Expected: 04/08/2024 (Approximate), Expires: 04/08/2025 Start: 04-08-2024 End: 06-08-2025 MG Breast - bilateral Screening Bilateral screening mammogram Imaging Routine Breast screening Expected: 04/08/2024 (Approximate), Expires: 06/08/2025 [facility] Comment on above: Expected: 04/08/2024 (Approximate), Expires: 06/08/2025 Start: 04-08-2024 End: 04-08-2025 TSH W/REFLEX TO FT4 TSH W/REFLEX TO FT4 Lab Routine Routine general medical examination at [facility] care facility Morbid (severe) obesity due to excess calories ([facility]) Unilateral primary osteoarthritis, right knee Expected: 04/08/2024 (Approximate), Expires: 04/08/2025 [facility] Comment on above: Expected: 04/08/2024 (Approximate), Expires: 04/08/2025 Start: 04-08-2024 End: 04-08-2024 Patient encounter procedure [facility] Comment on above: Arrived Start: 04-07-2024 Medicare Annual Wellness (AWV) Medicare Annual Wellness (AWV) [facility] [...] 04/06/2024 10:00 AM EST Office Visit [facility] [address] [place] [phone] Kunal Rodriguez, [address] [place] [address] Neurogenic claudication [facility] [address] Comment on above: Neurogenic claudicat ion Start: 03-18-2024 End: 03-18-2024 Patient encounter procedure [facility] Comment on above: Arrived Start: 03-03-2024 End: 03-03-2025 EMG 2 Extremities EMG 2 Extremities Neurology Routine Neurogenic claudication Expected: 03/03/2024 (Approximate), Expires: 03/03/2025 [facility] Work Phone: Comment on above: Expected: 03/03/2024 (Approximate), Expires: 03/03/2025 Start: 03-03-2024 End: 03-03-2024 Patient encounter procedure 03/03/2024 11:30 AM EDT Office Visit [facility] [address] [facility] [address] [place] [address] Christian Davis MD [address] [facility] [address] [place], [place] [id number] Arrived [facility] Comment on above: Arrived Start: 01-31-2024 COVID-19 Vaccine ( season) COVID-19 Vaccine ( season) [facility] Start: 01-31-2024 Influenza vaccination Influenza Vacc ine (#1) [facility] Start: 2023 Respiratory Syncytia l Virus (RSV) or age 60 yrs+ (1 - 1-dose 75+ series) Respiratory Syncytial Virus (RSV) or age 60 yrs+ (1 - 1-dose 75+ series) [facility] Start: 07-20-2022 Screening for malignant neoplasm of colon Colonoscopy [facility] Start: 06-27-2013 Shingles vaccine (2 of 3) Shingles vaccine (2 of 3) [facility] Start: 1967 DTaP/Tdap/Td vaccine (1 - Tdap) DTaP/Tdap/Td vaccine (1 - Tdap) [facility] Start: 1966 Hepatitis C screening Hepatitis C sc reen [facility] Start: 1960 Depression Screen Depression Screen [facility] Start: 1948 Screening for malignant neoplasm of colon [facility] End: 12-08-2024 Guidance-- during surgery FLUORO FOR SURGICAL PROCEDURES Imaging Routine Once for 1 Occurrences starting 12/08/2024 until 12/08/2024 [facility] Work Phone: Comment on above: Once for 1 Occurrenc es starting 12/08/2024 until 12/08/2024 End: 01-26-2025 Guidance-- during surgery FLUORO FOR SURGICAL PROCEDURES Imaging Routine Once for 1 Occurrences starting 01/26/2025 until 01/26/2025 [facility] Work Phone: Comment on above: Once for 1 Occurrenc es starting 01/26/2025 until 01/26/2025 Immunizations Immunization Date Immunization Notes Care Provider [facility] 05-30-2024 influenza virus vacc ine, unspecified formulation Lulú Witt [employer] Work Phone: [facility] 06-10-2023 Influenza, Seasonal, Quadrivalent, Adjuvanted Christian Davis MD Work Phone: [facility] 06-10-2023 influenza virus vacc ine, unspecified formulation Christian Davis MD Work Phone: [facility] 04-02-2022 Influenza, Seasonal, Quadrivalent, Adjuvanted Christian Davis MD Work Phone: [facility] 04-01-2022 pneumococcal conjuga te 20-valent (Prevnar 20) 0.5 ML vaccine Christian Davis MD Work Phone: [facility] 03-20-2021 influenza, high dose seasonal, preservative-free Christian Davis MD Work Phone: [facility] 02-15-2020 influenza, injectabl e, quadrivalent, preservative free Christian Davis MD Work Phone: [facility] 03-30-2019 Seasonal trivalent influenza vaccine, adjuvanted, preservative free Christian Davis MD Work Phone: [facility] 01-27-2019 pneumococcal polysaccharide vaccine, 23 valent Christian Davis MD Work Phone: [facility] 05-05-2018 Influenza, High-dose Seasonal, Quadrivalent, Preservative Free Christian Davis MD Work Phone: [facility] 01-11-2018 pneumococcal conjuga te vaccine, 13 valent Christian Davis MD Work Phone: [facility] 01-04-2018 pneumococcal polysaccharide vaccine, 23 valent Christian Davis MD Work Phone: [facility] 05-26-2017 influenza, injectabl e, quadrivalent, preservative free Christian Davis MD Work Phone: [facility] 04-09-2016 influenza, injectabl e, quadrivalent, preservative free Christian Davis MD Work Phone: [facility] 05-04-2015 influenza virus vacc ine, split virus (incl. purified surface antigen) Christian Davis MD Work Phone: [facility] 05-02-2013 zoster vaccine, live Christian Davis MD Work Phone: [facility] 10-14-2012 pneumococcal polysaccharide vaccine, 23 valent Christian Davis MD Work Phone: [facility] Payers Date Payer Category Payer Self-pay 2023 Private Health Insurance [facility] [place]PPLE[facility] [id number] 2023 Unknown [id number] 2013 Medicare [id number] 1959 Medicare [id number] 1959 Private Health Insurance [facility] [id number] 1948 Unknown [id number] [id number] .593 1948 Unknown [id number] [id number] .593 1948 Unknown [id number] [id number] .1259 1948 Unknown [id number] [id number] .1259 1948 Unknown [id number] 2.16.840.1.131384.3.579.2 .1259 1948 Unknown [id number] 2.16.840.1.230325.3.579.2 .1259 1948 Unknown [id number] 2.16.840.1.623813.3.579.2 .1259 1948 Unknown [id number] 2.16.840.1.195780.3.579.2 .9 1948 Unknown [id number] 2.16.840.1.710356.3.579.2 .1258 1948 Unknown [id number] 2.16.840.1.298652.3.579.2 .1259 1948 Unknown [id number] 2.16.840.1.236848.3.579.2 .9 1948 Unknown [id number] 2.16.840.1.066048.3.579.2 .174 1948 Unknown [id number] 2.16.840.1.262857.3.579.2 .174 1948 Unknown [id number] 2.16.840.1.566583.3.579.2 .174 1948 Unknown [id number] 2.16.840.1.588304.3.579.2 .174 Unknown [id number] [id number] .531 Social History Date Type Detail Facility Start: 10-06-2024 Tobacco smoking status CAIS Tobacco smoking consumption unknown [facility] Start: 04-07-2023 End: 04-08-2024 History of Social function [facility] Start: 04-07-2023 End: 04-08-2024 Patient Health Questionnaire 2 item (PHQ-2) [Reported] [facility] Start: 1950 Sex assigned at Not on file [facility] Start: 03-03-2024 Tobacco smoking status NHIS Never smoked tobacco [facility] Start: 03-03-2024 Tobacco use and exposure Smokeless tobacco non-user [facility] Start: 11-24-2024 End: 01-26-2025 Alcoholic beverage intake [facility] [employer] Physical abuse Denies [facility] Start: 07-11-2012 Sex Female (finding) [facility] Start: 1950 Sex assigned at Female [facility] Start: 12-20-2024 Gender identity Identifies as female gender (finding) [facility] Start: 12-20-2024 Sexual orientation Heterosexual (finding) [facility] Clinical Notes 03-03-2024 to 02-02-2025 Discharge InstructionsSchMeghan kilpatrick RN - 01/05/2025 3:40 PM EDTDischarge InstructionsDischarge InstructionsFlorencia Piña RN - 11/24/2024 3:00 PM EDTDischarge InstructionsPatient Instructions Note Date & Type Note Facility 02-02-2025 Note EXAM: FLUORO FOR MICHELL GICAL PROCEDURES HISTORY: LUMBAR RFA COMPARISON: None. TECHNIQUE: Intraoperative fluoroscopy. 7.17 mGy air kerma dose IMPRESSION: FINDINGS/IMPRESSION: Dr. De Leon utilized the fluoroscope in the operating room during radiofrequency ablation. Interpreted by: Matias Weller Jr., MD Signed by: Matias Weller Jr., MD 02/02/25 Edited Result - FINAL [facility] 01-26-2025 Hospital Discharg e instructions Luciano Barreto RN - 01/26/2025 12:42 PM EDT You have received an injection of local anesthetic and corticosteroids. The local anesthetic effect typically last 4-6 hours. It may take 3-7 days for the corticosteroids to reach optimal effect. Please pay close attention to the following information/instructions: You may NOT drive for 12 hours after your injection if you had sedation or epidural injection, operate heavy machinery or make important decisions. It is common to experience mild soreness at the injection site(s) for 24-48 hours. Ice is the best remedy. You may apply ice for 20 minutes at a time several times a day as needed. Avoid heat to the injection area for 72 hours. No hot packs, saunas, or steam rooms during this time. A regular shower is OK. You may immediately restart your regular medication regimen, including pain medications, anti-inflammatory, and blood thinners. Please remove the sterile dressing/band-aid tonight or tomorrow morning. Do not leave it on after you have taken a shower or gotten it wet. Corticosteroid side effects can occur after this injection, but they usually resolve after several days. These side effects can include flushing, hot flashes, mild palpitations, insomnia, water retention, feeling anxious/restless, or headaches. While it is extremely rare to get an infection after a spinal procedure, please call the office if you develop any signs of infection. These signs include fevers/chills, severely increased pain, redness at the injections site, or any drainage from the injection site. Remember that the corticosteroid benefit (long-term pain relief) from an injection can take as long as 10 days to occur. You may have a period of slightly increased pain after your injection before the cortisone takes effect. You may resume all of your normal daily activities 24 hours after your injection. It is OK to restart your exercise or physical therapy program as soon as you feel comfortable doing so. Please complete the pain diary given to you after your injection. The information you provide on this diary is used to guide your treatment plan. You should schedule a follow-up visit in 2-3 weeks to review your response to this injection. Please bring your pain diary with you to this appointment. Education Materials Received: yes Belongings Returned: yes Resume all current outpatient medication(s). The discharge instructions have been reviewed with the patient and/or Guardian. Patient and/or Guardian signed and retained a printed copy. documented in this encounter [facility] 01-05-2025 History of Presen t illness Narrative Discharge Criteria Outpatients must meet criteria 1 through 7. Up to restroom, void sufficient amount. Yes 1. Minimum 30 minutes after last dose of sedative medication, minimum 120 minutes after last dose of reversal agent. Yes 2. Systolic BP stable within 20 mmHg for 30 minutes & systolic BP between 90 & 180 or within 10 mmHg of baseline. Yes 3. Pulse between 60 and 100 or within 10 bpm of baseline. Yes 4. Spontaneous respiratory rate >/= 10 per minute. Yes 5. SaO2 >/= 95 or >/= baseline. Yes 6. Able to cough and swallow or return to baseline function. Yes 7. Alert and oriented or return to baseline mental status. Yes 8. Demonstrates controlled, coordinated movements, ambulates with steady gait, or return to baseline activity function. Yes 9. Minimal or no pain or nausea, or at a level tolerable and acceptable to patient. Yes 10. Takes and retains oral fluids as allowed. Yes 11. Procedural / perioperative site stable. Minimal or no bleeding. Yes 12. If GI endoscopy procedure, minimal or no abdominal distention or passing flatus. Yes 13. Written discharge instructions and emergency telephone number provided. Yes 14. Accompanied by a responsible adult. Yes Adult patient discharged from facility without responsible person meets above criteria plus the following: a) remains awake without stimulus for 30 minutes b) oriented appropriate for age c) all vital signs stable d) no significant risk of losing protective reflexes e) able to maintain pre-procedure mobility without assistance f) no nausea or dizziness g) transportation arrangements that do not require patient to operate motor Vehicle. Yes documented in this encounter [facility] 01-05-2025 [facility] Discharg e instructions Meghan Gayle RN - 01/05/2025 3:33 PM EDT You have received an injection of local anesthetic and corticosteroids. The local anesthetic effect typically last 4-6 hours. It may take 3-7 days for the corticosteroids to reach optimal effect. Please pay close attention to the following information/instructions: You may NOT drive for 12 hours after your injection if you had sedation or epidural injection, operate heavy machinery or make important decisions. It is common to experience mild soreness at the injection site(s) for 24-48 hours. Ice is the best remedy. You may apply ice for 20 minutes at a time several times a day as needed. Avoid heat to the injection area for 72 hours. No hot packs, saunas, or steam rooms during this time. A regular shower is OK. You may immediately restart your regular medication regimen, including pain medications, anti-inflammatory, and blood thinners. Please remove the sterile dressing/band-aid tonight or tomorrow morning. Do not leave it on after you have taken a shower or gotten it wet. Corticosteroid side effects can occur after this injection, but they usually resolve after several days. These side effects can include flushing, hot flashes, mild palpitations, insomnia, water retention, feeling anxious/restless, or headaches. While it is extremely rare to get an infection after a spinal procedure, please call the office if you develop any signs of infection. These signs include fevers/chills, severely increased pain, redness at the injections site, or any drainage from the injection site. Remember that the corticosteroid benefit (long-term pain relief) from an injection can take as long as 10 days to occur. You may have a period of slightly increased pain after your injection before the cortisone takes effect. You may resume all of your normal daily activities 24 hours after your injection. It is OK to restart your exercise or physical therapy program as soon as you feel comfortable doing so. Please complete the pain diary given to you after your injection. The information you provide on this diary is used to guide your treatment plan. You should schedule a follow-up visit in 2-3 weeks to review your response to this injection. Please bring your pain diary with you to this appointment. Education Materials Received: yes Belongings Returned: yes Resume all current outpatient medication(s). The discharge instructions have been reviewed with the patient and/or Guardian. Patient and/or Guardian signed and retained a printed copy. documented in this encounter [facility] 12-08-2024 Hospital Discharg e instructions Meghan Gayle RN - 12/08/2024 12:51 PM EDT You have received an injection of local anesthetic and corticosteroids. The local anesthetic effect typically last 4-6 hours. It may take 3-7 days for the corticosteroids to reach optimal effect. Please pay close attention to the following information/instructions: You may NOT drive for 12 hours after your injection if you had sedation or epidural injection, operate heavy machinery or make important decisions. It is common to experience mild soreness at the injection site(s) for 24-48 hours. Ice is the best remedy. You may apply ice for 20 minutes at a time several times a day as needed. Avoid heat to the injection area for 72 hours. No hot packs, saunas, or steam rooms during this time. A regular shower is OK. You may immediately restart your regular medication regimen, including pain medications, anti-inflammatory, and blood thinners. Please remove the sterile dressing/band-aid tonight or tomorrow morning. Do not leave it on after you have taken a shower or gotten it wet. Corticosteroid side effects can occur after this injection, but they usually resolve after several days. These side effects can include flushing, hot flashes, mild palpitations, insomnia, water retention, feeling anxious/restless, or headaches. While it is extremely rare to get an infection after a spinal procedure, please call the office if you develop any signs of infection. These signs include fevers/chills, severely increased pain, redness at the injections site, or any drainage from the injection site. Remember that the corticosteroid benefit (long-term pain relief) from an injection can take as long as 10 days to occur. You may have a period of slightly increased pain after your injection before the cortisone takes effect. You may resume all of your normal daily activities 24 hours after your injection. It is OK to restart your exercise or physical therapy program as soon as you feel comfortable doing so. Please complete the pain diary given to you after your injection. The information you provide on this diary is used to guide your treatment plan. You should schedule a follow-up visit in 2-3 weeks to review your response to this injection. Please bring your pain diary with you to this appointment. Education Materials Received: yes Belongings Returned: yes Resume all current outpatient medication(s). The discharge instructions have been reviewed with the patient and/or Guardian. Patient and/or Guardian signed and retained a printed copy. documented in this encounter [facility] 11-24-2024 History of Presen t illness Narrative Discharge Criteria Outpatients must meet criteria 1 through 7. Gait steady when up 1. Minimum 30 minutes after last dose of sedative medication, minimum 120 minutes after last dose of reversal agent. Yes 2. Systolic BP stable within 20 mmHg for 30 minutes & systolic BP between 90 & 180 or within 10 mmHg of baseline. Yes 3. Pulse between 60 and 100 or within 10 bpm of baseline. Yes 4. Spontaneous respiratory rate >/= 10 per minute. Yes 5. SaO2 >/= 95 or >/= baseline. Yes 6. Able to cough and swallow or return to baseline function. Yes 7. Alert and oriented or return to baseline mental status. Yes 8. Demonstrates controlled, coordinated movements, ambulates with steady gait, or return to baseline activity function. Yes 9. Minimal or no pain or nausea, or at a level tolerable and acceptable to patient. Yes 10. Takes and retains oral fluids as allowed. Yes 11. Procedural / perioperative site stable. Minimal or no bleeding. Yes 12. If GI endoscopy procedure, minimal or no abdominal distention or passing flatus. Yes 13. Written discharge instructions and emergency telephone number provided. Yes 14. Accompanied by a responsible adult. Yes Adult patient discharged from facility without responsible person meets above criteria plus the following: a) remains awake without stimulus for 30 minutes b) oriented appropriate for age c) all vital signs stable d) no significant risk of losing protective reflexes e) able to maintain pre-procedure mobility without assistance f) no nausea or dizziness g) transportation arrangements that do not require patient to operate motor Vehicle. Yes documented in this encounter [facility] 11-24-2024 Hospital Discharg Danielle Staley RN - 11/24/2024 2:47 PM EDT You have received an injection of local anesthetic and corticosteroids. The local anesthetic effect typically last 4-6 hours. It may take 3-7 days for the corticosteroids to reach optimal effect. Please pay close attention to the following information/instructions: It is common to experience mild soreness at the injection site(s) for 24-48 hours. Ice is the best remedy. You may apply ice for 20 minutes at a time several times a day as needed. Avoid heat to the injection area for 72 hours. No hot packs, saunas, or steam rooms during this time. A regular shower is OK. You may immediately restart your regular medication regimen, including pain medications, anti-inflammatory, and blood thinners. Please remove the sterile dressing/band-aid tonight or tomorrow morning. Do not leave it on after you have taken a shower or gotten it wet. Corticosteroid side effects can occur after this injection, but they usually resolve after several days. These side effects can include flushing, hot flashes, mild palpitations, insomnia, water retention, feeling anxious/restless, or headaches. While it is extremely rare to get an infection after a spinal procedure, please call the office if you develop any signs of infection. These signs include fevers/chills, severely increased pain, redness at the injections site, or any drainage from the injection site. Remember that the corticosteroid benefit (long-term pain relief) from an injection can take as long as 10 days to occur. You may have a period of slightly increased pain after your injection before the cortisone takes effect. You may resume all of your normal daily activities 24 hours after your injection. It is OK to restart your exercise or physical therapy program as soon as you feel comfortable doing so. Please complete the pain diary given to you after your injection. The information you provide on this diary is used to guide your treatment plan. You should schedule a follow-up visit in 2-3 weeks to review your response to this injection. Please bring your pain diary with you to this appointment. documented in this encounter [facility] 08-30-2024 History of Presen t illness Narrative Associated Order(s): Nerve Block Pre-Procedure Diagnose(s): Pain in both lower extremities; Lumbar spondylosis; Lumbar radiculopathy; Lumbosacral radiculopathy Post-Procedure Diagnose(s): Pain in both lower extremities; Lumbar spondylosis; Lumbar radiculopathy; Lumbosacral radiculopathy Images from the original note were not included. Reason for Appointment: Epidural Patient ID: Dayna Valencia is a 74 y.o. female who presents for lumbar radiculopathy. Current Medications: has a current medication list which includes the following prescription(s): calcium 600+d3 plus minerals and multi vitamin, and the following Facility-Administered Medications: bupivacaine, dexamethasone sod phos, and iohexol. Vitals: Visit Vitals BP 126/82 Pulse 101 SpO2 98% Smoking Status Never Allergies: Allergies Allergen Reactions [...] after the procedure. The patient (or responsible constitution party) was given post-procedure and discharge instructions to follow at home. The patient was discharged in stable condition. A follow-up appointment was made. The patient was instructed to avoid activities that would normally worsen the pain. Pre-procedure pain score: 3 /10 Mine Car Mechanic: RT Doug(R) kVp: 103 Time (sec): 24 mA: 3.0 Patient ID: Dayna Valencia is a 74 y.o. female. Nerve Block Date/Time: 08/30/2024 12:16 PM Performed by: Kunal Rodriguez DO Authorized by: Lulú Witt NP Consent: Consent obtained: Written Consent given by: Patient Lynn protocol: Procedure explained and questions answered to patient or proxy's satisfaction: yes Patient identity confirmed: Verbally with patient Location: Body area: Trunk Trunk nerve: Lumbar Procedure details: Guidance: fluoroscopy Steroid injected: Dexamethasone Post-procedure details: Procedure completion: Tolerated documented in this encounter [facility] 07-07-2024 Instructions Lulú Witt NP - 07/07/2024 2:40 PM EST - Bilateral L4 epidural injections scheduled for 08/30/2024 - Try dose increase of Meloxicam as directed. Discontinue use if ineffective documented in this encounter [facility] 06-16-2024 Telephone encounter Note No, thank you for catching that. She does not need the carotid ultrasound; that was placed in error. I reordered the lower extremity ultrasound with ELZA and canceled the order for the carotid ultrasound. [facility] 06-16-2024 Miscellaneous Notes No, thank you for catching that. She [...] concern for this? [facility] at [facility] about her Vascular ultrasound diagnosis code meet guidelines to get this approved. She said none of the 3 work. Fax back [phone] [place] [phone] documented in this encounter [facility] 06-16-2024 Telephone encounter Note The original order was for a Vascular US lower extremity artrial duplex bilateral with ELZA and the new order was for a carotid ultrasound. Do you want both done? [facility] 06-16-2024 Telephone encounter Note I placed a new order. [facility] 06-15-2024 Telephone encounter Note Yes this code works it is I73.9 They are requesting a new order. [facility] 06-15-2024 Telephone encounter Note Left message with [facility] 06-14-2024 Telephone encounter Note Can we try vascular claudication since there is concern for this? [facility] 06-14-2024 Telephone encounter Note [facility] at [facility] about her Vascular ultrasound diagnosis code meet guidelines to get this approved. She said none of the 3 work. Fax back [phone] [place]- [phone] [facility] 06-07-2024 Instructions Lulú Witt NP - 06/07/2024 4:00 PM EST - Start meloxicam 7.5 mg by mouth once a day - Vascular ultrasound - Check labs (CK, myoglobin, aldolase) documented in this encounter [facility] 05-10-2024 History of Presen t illness Narrative [...] after the procedure. The patient (or responsible constitution party) was given post-procedure and discharge instructions to follow at home. The patient was discharged in stable condition. A follow-up appointment was made. The patient was instructed to avoid activities that would normally worsen the pain. Pre-procedure pain score: 2 /10 Mine Car Mechanic: RT Doug(R) kVp: 103 Time (sec): 19 mA: 3.0 documented in this encounter [facility] 04-08-2024 History of Presen t illness Narrative [...] Do you have a medical power of patent attorney?: Yes Who is your medical power of patent attorney?: Objective : BP 122/68 Pulse 83 [...] April 08, 2024 documented in this encounter [facility] 04-06-2024 History of Presen t illness Narrative [...] headaches. Past Medical History: Diagnosis Date Migraine (CMS/[facility]) Missed 1969 Osteopenia of hip Osteoporosis (CMS/HCC) [...] , wrist extensors , wrist flexor , assistant manager retail strength 5/5. LUE Strength deltoid , biceps , triceps , wrist extensors , wrist flexor , assistant manager retail strength 5/5. RLE Strength illopsoas, quadriceps, tibialis [...] knee reflex 0. Wright's sign negative. Coordination: Wxsakm-ni-nssy testing and rapid alternating movements are normal [...] has failed physical therapy. Patient has failed ksti-ilu-giuodqo medication and prescription medication for relief of [...] and return instructions documented in this encounter [facility] 03-18-2024 History of Presen t illness Narrative [...] Medical History: Diagnosis Date Migraine (CMS/HCC) Missed 1970 Osteopenia of hip Osteoporosis (CMS/HCC) 2014 Rectocele Past Surgical History: Procedure Laterality Date CHOLECYSTECTOMY laparoscopic cholecystectomy COLONOSCOPY with sphincterotomy DILATION AND CURETTAGE OF UTERUS 1970 OTHER SURGICAL HISTORY LVB Visit Vitals BP [...] for Routine F/U. documented in this encounter [facility] 03-10-2024 History of Presen t illness Narrative Images from the original note were not included. Reason for Appointment: EMG Patient: Dayna Valencia : 1950 EMG Computer: [employer] Referring Physician: Dr. Christian Davis EMG: BLE cardio tech: Manjit Moctezuma RT(R) Office Location: [place] Reason for EMG: c/o tightness/stiffness in bilateral legs, low back pain. No hx of DM. Not on blood thinners. Comments: Procedure was explained to the patient who expressed understanding. Patient appeared to have tolerated the test well despite some discomfort due to the nature of the test. documented in this encounter [facility] 03-03-2024 History of Presen t illness Narrative [...] with sphincterotomy DILATION AND CURETTAGE OF UTERUS 1970 OTHER SURGICAL HISTORY LVB Visit Vitals BP [...] for Test/Lab Review. documented in this encounter [facility] Healthcare Evaluation note Diagnosis Neurogenic claudication- Primary Spinal stenosis of lumbar region documented in this encounter [facility] HealthcareEvaluation note* Diagnosis Lumbosacral radiculopathy- Primary Thoracic or lumbosacral neuritis or radiculitis, unspecified Neurogenic claudication Spinal stenosis of lumbar region documented in this encounter [facility] HealthcareEvaluation note* Diagnosis Neurogenic claudication- Primary Spinal stenosis of lumbar region documented in this encounter [facility] HealthcareEvaluation note* Diagnosis Weakness of both lower extremities- Primary Lumbosacral radiculopathy Thoracic or lumbosacral neuritis or radiculitis, unspecified documented in this encounter [facility] HealthcareEvaluation note* Diagnosis Routine general medical examination at health care facility- Primary Routine general medical examination at a health care facility ACP (advance care planning) Other specified counseling Breast screening Breast screening, unspecified Estrogen deficiency Other ovarian failure Morbid (severe) obesity due to excess calories (CMS/[facility]) Unilateral primary osteoarthritis, right knee [...] lower extremities documented [facility] encounter [facility] Diagnosis Pain in both lower extremities- Primary Weakness of both lower extremities Lumbar spondylosis Lumbosacral spondylosis without myelopathy Lumbosacral radiculopathy Thoracic or lumbosacral neuritis or radiculitis, unspecified documented [facility] encounter [facility]* Diagnosis Lumbar radiculopathy- Primary Thoracic or lumbosacral neuritis or radiculitis, unspecified Pain in both lower extremities Lumbar spondylosis Lumbosacral spondylosis without myelopathy Lumbosacral radiculopathy Thoracic or lumbosacral neuritis or radiculitis, unspecified documented [facility]* Diagnosis Lumbosacral spondylosis without myelopathy- Primary [facility]* Diagnosis Lumbosacral spondylosis without myelopathy- Primary [facility] Consultation (Routine) - Closed Specialty Diagnoses / Procedures Referred By Rupa sanchez Referred To Contact Neurology Diagnoses Neurogenic claudication Procedures SD OFFICE/OUTPATIENT [facility] 60 MINUTES Christian Davis MD [address] [facility] [address] [place] [address] Phone: tel: fax: Kunal Rodriguez DO [address] [place] [address] Phone: tel: fax: Referral ID Status Reason Start Date Expiration Date V isits Requested Visits Authorized [id number] Closed Consult and Treat 03/18/2024 09/14/2024 1 1 [facility] for visit Narrative* Injection (Routine) - Closed Specialty Diagnoses / Procedures Referred By Contavani t Referred To Contact Neurology Diagnoses Lumbosacral radiculopathy Procedures Nerve Block Kunal Rodriguez DO [address] [place] [address] Phone: tel: fax: Referral ID Status Reason Start Date Expiration Date Visits Re quested Visits Authorized [id number] Closed 04/06/2024 10/03/2024 1 1 [facility]* Injection (Routine) - Closed Specialty Diagnoses / Procedures Referred By Contac t Referred To Contact Neurology Diagnoses Pain in both lower extremities Lumbar spondylosis Lumbar radiculopathy Procedures Nerve Block Lulú Witt, [place] [address] [place] [phone] Phone: tel: Referral ID Status Reason Start Date Expiration Date Visits Re quested Visits Authorized [id number] Closed 08/30/2024 02/26/2025 1 1 [facility]* Auth/Cert Specialty Diagnoses / Procedures Referred By Contac t Referred To Contact Diagnoses Lumbosacral spondylosis without myelopathy Procedures SD NJX DX/THER AGT PVRT FACET JT LMBR/SAC 1 LEVEL BILATERAL LUMBAR L3, L4, L5 MEDIAL BRANCH BLOCK Ashley De Leon, DO [address] [place] [address] Phone: tel: fax: [facility] [employer] [id number] [place] [phone] Referral ID Status Reason Start Date Expiration Date Visits Re quested Visits Authorized [id number] 1 1 [facility] Auth/Cert Specialty Diagnoses / Procedures Referred By Contac t Referred To Contact Diagnoses Lumbosacral spondylosis without myelopathy Procedures SD NJX DX/THER AGT PVRT FACET JT LMBR/SAC 1 LEVEL SD NJX DX/THER AGT PVRT FACET JT LMBR/SAC 2ND LEVEL BILATERAL LUMBAR L3, L4, L5 MEDIAL BRANCH BLOCK EvanstonBonilla smithin, DO [address] [place] [address] Phone: tel: fax: [facility] [employer] [phone] [place] [phone] Referral ID Status Reason Start Date Expiration Date Visits Re quested Visits Authorized [id number] 1 1 [facility] for visit Narrative* Auth/Cert Specialty Diagnoses / Procedures Referred By Contac t Referred To Contact Diagnoses Lumbosacral spondylosis without myelopathy Procedures SD DSTR NROLYTC AGNT PARVERTEB FCT SNGL LMBR/SACRAL SD DSTR NROLYTC AGNT PARVERTEB FCT ADDL LMBR/SACRAL RIGHT LUMBAR L3, L4, L5 RADIO FREQUENCY ABLATION [place], Ashley, DO [address] [place] [address] Phone: tel: fax: [facility] [employer] [id number] [place] [phone] Referral ID Status Reason Start Date Expiration Date Visits Re quested Visits Authorized [id number] 1 1 [facility] [employer] for visit Narrative* Auth/Cert Specialty Diagnoses / Procedures Referred By Contac t Referred To Contact Diagnoses Lumbosacral spondylosis without myelopathy Procedures SD DSTR NROLYTC AGNT PARVERTEB FCT SNGL LMBR/SACRAL SD DSTR NROLYTC AGNT PARVERTEB FCT ADDL LMBR/SACRAL LEFT LUMBAR L3, L4, L5 RADIO FREQUENCY ABLATION Moises, Ashley, DO [address] [place] [address] Phone: tel: fax: [facility] [employer] [phone] [place] [phone] Referral ID Status Reason Start Date Expiration Date Visits Re quested Visits Authorized [id number] 1 1 [employer] Summary Purpose Family History No Family History [...] CREATED AUTHOR AUTHOR'S ORGANIZ ATION 05/03/2024 [facility] DATE CREATED AUTHOR AUTHOR'S ORGANIZ ATION 08/31/2024 [facility] EPIC DATE CREATED AUTHOR AUTHOR'S ORGANIZ ATION 02/04/2025 [facility] Teams (unrecognized sec tion and content) Audit Analyst Relationship Specialty Start Date End Date Christian Davis MD [address] [place] [address] PCP - General Internal Medicine 10/07/22 Elizabeth Davis, BOTTOM CAGER [address] [place] [address] PCP - ACO Reach 09/30/23 Audit Analyst Relationship Specialty Start Date End Date Christian Davis MD [address] [place] [address] PCP - General Internal Medicine 10/07/22 Elizabeth Davis, BOTTOM CAGER [address] [place] [address] PCP - ACO Reach 09/30/23 Audit Analyst Relationship Specialty Start Date End Date Christian Davis MD [address] [place] [address] PCP - General Internal Medicine 10/07/22 Elizabeth Davis, BOTTOM CAGER [address] [place] [address] PCP - ACO Reach 09/30/23 Audit Analyst Relationship Specialty Start Date End Date Christian Davis MD [address] [place] [address] PCP - General Internal Medicine 10/07/22 Elizabeth Davis, BOTTOM CAGER [address] [place] [address] PCP - ACO Reach 09/30/23 Audit Analyst Relationship Specialty Start Date End Date Christian Davis MD [address] [place] [address] PCP - General Internal Medicine 10/07/22 Elizabeth Davis, BOTTOM CAGER [address] [place] [address] PCP - ACO Reach 09/30/23 Audit Analyst Relationship Specialty Start Date End Date Christian Davis MD [address] [place] [address] PCP - General Internal Medicine 10/07/22 Elizabeth Davis, BOTTOM CAGER [address] [place] [address] PCP - ACO Reach 09/30/23 Audit Analyst Relationship Specialty Start Date End Date Christian Davis MD [address] [place] [address] PCP - General Internal Medicine 10/07/22 Elizabeth Davis, BOTTOM CAGER [address] [place] [address] PCP - ACO Reach 09/30/23 Audit Analyst Relationship Specialty Start Date End Date Christian Davis MD [address] [place] [address] PCP - General Internal Medicine 10/07/22 Elizabeth Davis BOTTOM CAGER [address] [place] [address] PCP - ACO Reach 09/30/23 Audit Analyst Relationship Specialty Start Date End Date Christian Davis MD [address] [place] [address] PCP - General Internal Medicine 10/07/22 Elizabeth Davis, BOTTOM CAGER [address] [place] [address] PCP - ACO Reach 09/30/23 Audit Analyst Relationship Specialty Start Date End Date Christian Davis MD [address] [place] [address] PCP - General Internal Medicine 10/07/22 Elizabeth Davis, BOTTOM CAGER [address] [place] [address] PCP - ACO Reach 09/30/23 Audit Analyst Relationship Specialty Start Date End Date Christian Davis MD [address] [place] [address] PCP - General Internal Medicine 10/07/22 Elizabeth Davis, BOTTOM CAGER [address] [place] [address] PCP - ACO Reach 09/30/23 Audit Analyst Relationship Specialty Start Date End Date Christian Davis MD [address] [place] [address] PCP - General Internal Medicine 10/07/22 Elizabeth Davis, BOTTOM CAGER [address] [place] [address] PCP - ACO Reach 09/30/23 Audit Analyst Relationship Specialty Start Date End Date Christian Davis MD [address] [place] [address] PCP - General Internal Medicine 10/07/22 Elizabeth Davis, BOTTOM CAGER [address] [place] [address] PCP - ACO Reach 09/30/23 Audit Analyst Relationship Specialty Start Date End Date Christian Davis MD [address] [place] [address] PCP - General Internal Medicine 10/07/22 Elizabeth Davis, BOTTOM CAGER [address] [place] [address] PCP - ACO Reach 09/30/23 Kunal Rodriguez DO [address] [place] [address] Referring Physician Neurology 07/07/24 Audit Analyst Relationship Specialty Start Date End Date Christian Davis MD [address] [place] [address] PCP - General Internal Medicine 10/07/22 Elizabeth Davis, BOTTOM CAGER [address] [place] [address] PCP - ACO Reach 09/30/23 Kunal Rodriguez DO [address] [place] [address] Referring Physician Neurology 07/07/24 Audit Analyst Relationship Specialty Start Date End Date Christian Davis MD [address] [place] [address] PCP - General Internal Medicine 10/07/22 Christian Davis MD [address] [place] [address] PCP - ACO Reach 07/08/24 Kunal Rodriguez DO [address] [place] [address] Referring Physician Neurology 07/07/24 Audit Analyst Relationship Specialty Start Date End Date Christian Davis MD [address] [place] [address] PCP - General Internal Medicine 10/07/22 Christian Davis MD [address] [place] [address] PCP - ACO Reach 07/08/24 Kunal Rodriguez DO [address] [place] [address] Referring Physician Neurology 07/07/24 Audit Analyst Relationship Specialty Start Date End Date Christian Davis MD [address] [place] [address] PCP - General Internal Medicine 10/07/22 Christian Davis MD [address] [place] [address] PCP - ACO Reach 07/08/24 Kunal Rodriguez DO [address] [place] [address] Referring Physician Neurology 07/07/24 Audit Analyst Relationship Specialty Start Date End Date Christian Davis MD [address] [place] [address] PCP - General Internal Medicine 10/06/24 Audit Analyst Relationship Specialty Start Date End Date Christian Davis MD [address] [place] [address] PCP - General Internal Medicine 10/06/24 Audit Analyst Relationship Specialty Start Date End Date Christian Davis MD [address] [place] [address] PCP - General Internal Medicine 10/07/22 Christian Davis MD [address] [place] [address] PCP - ACO Reach 07/08/24 Kunal Rodriguez DO [address] [place] [address] Referring Physician Neurology 07/07/24 Audit Analyst Relationship Specialty Start Date End Date Christian Davis MD [address] [place] [address] PCP - General Internal Medicine 10/06/24 Audit Analyst Relationship Specialty Start Date End Date Christian Davis MD [address] [place] [address] PCP - General Internal Medicine 10/06/24 Reason for Visit (unrecogniz ed section and content) Reason Comments Leg Pain Specialty Diagnoses / Procedures Referred By Contavani t Referred To Contact Neurology Diagnoses Neurogenic claudication Procedures EMG AND NERVE CONDUCTION STUDY Christian Davis MD [address] [place] [address] Kunal Rodriguez DO [address] [place] [address] Referral ID Status Reason Start Date Expiration Date V isits Requested Visits Authorized [id number] Closed Perform Procedure 03/08/2024 09/04/2024 1 1 Reason Comments Results emg Follow-up Leg pain Reason Comments Medicare Annual Wellness Visit Subsequen t Reason Comments Extremity Weakness Pain Reason Onset Date Comments Lower extremity ultrasound 06/14/2024 Reason Comments Extremity Weakness Pain PRN Active and Recently Administ ered Medications (unrecognized section and content) Medication Order 11/22/2024 11/23/2024 11/24/2024 lidocaine PF 2 % injection (CANCELED) PRN, Starting on Asha 11/24/24 at 1441, Until Asha 11/24/24 at 1447, Intra-op 1441 (Given - Provid er: Ashley De Leon, DO - Comment: used 6mls for case) PRN Medication Order 12/06/2024 12/07/2024 12/08/2024 lidocaine PF 2 % injection (CANCELED) PRN, Starting on Asha 12/08/24 at 1246, Until Asha 12/08/24 at 1249, Intra-op 1246 (Given - Provid er: Ashley De Leon, DO - Comment: 1 mL injected at each site) PRN Medication Order 01/03/2025 01/04/2025 01/05/2025 dexAMETHasone (DECADRON) (CANCELED) PRN, Starting on Asha 01/05/25 at 1515, Until Asha 01/05/25 at 1524, Intra-op 1515 (Given - Provid er: Ashley De Leon, DO - Comment: used 1mls for case) lidocaine PF 1 % injection (CANCELED) PRN, Starting on Asha 01/05/25 at 1516, Until Asha 8 at 1524, Intra-op 1516 (Given - Provid er: Ashley De Leon, DO - Comment: used 2mls for case) lidocaine PF 2 % injection (CANCELED) PRN, Starting on Asha 01/05/25 at 1514, Until Asha 01/05/25 at 1524, Intra-op 1514 (Given - Provid er: Ashley De Leon, DO - Comment: used 5mls for case) PRN Medication Order 01/24/2025 01/25/2025 01/26/2025 dexAMETHasone (DECADRON) (CANCELED) PRN, Starting on Asha 01/26/25 at 1247, Until Asha 01/26/25 at 1256, Intra-op 1247 (Given - Provid er: Ashley De Leon, DO - Comment: used 1mls for case) lidocaine PF 1 % injection (CANCELED) PRN, Starting on Asha 01/26/25 at 1248, Until Asha 01/26/25 at 1256, Intra-op 1248 (Given - Provid er: Ashley De Leon, DO - Comment: used 2mls for case) lidocaine PF 2 % injection (CANCELED) PRN, Starting on Asha 01/26/25 at 1247, Until Asha 01/26/25 at 1256, Intra-op 1247 (Given - Provid er: Ashley De Leon, DO - Comment: used 5mls for case) FOR RECORDS PERTAINING TO PATIENTS WHO ARE [...] BE BASED ON THE PRIMARY CLINICAL RECORDS. [employer] [facility]. provides no warranty or guarantee of the accuracy or completeness of information in this document.
--- NOTE | 2025-03-06 14:38 | XR_ITS ---
[address] [address] Patient Name: JAMILA VALENCIA MRN: [id number] date: 1950 Sex: F Assigned Patient Location: [facility] Current Patient Location: [facility] Accession/Order Number: [id number] Exam Date: 03/06/2025 14:45 Report Date: 03/06/2025 20:46 At the request of: DIMITRIOS LORD DPM Procedure: XR foot RT min 3V XR foot RT min 3V 03/06/2025 2:53 PM SIGNS AND SYMPTOMS: Right foot pain PROTOCOL: 3 views of the right foot COMPARISON: None FINDINGS: The bones are in anatomic alignment. There is mild narrowing of the first metatarsophalangeal joint. There is no fracture or dislocation. There is plantar and Achilles surface calcaneal spurring. There is accompanying soft tissue swelling/thickening at the Achilles insertion. XR/XR foot RT min 3V IMPRESSION: No acute bony injury. Degenerative changes are noted at the first metatarsophalangeal joint. Achilles surface calcaneal spurring with soft tissue thickening at the Achilles insertion. Impression dictated by: Willis Batista M.D. 03/06/2025 8:46 PM Dictation Location: [place] [address] Electronically authenticated by: [id number] Y Date: 03/06/2025 20:46
== END 2025-03-06 14:28 | disposition home or self-care (01) ==
LOC: RAD 14:27
PROVIDERS: PCP Internal Medicine; Visit Provider Podiatrist Foot & Ankle Surgery
DX: M79.671 Pain in right foot (principal); M19.071 Primary osteoarthritis, right ankle and foot
CPT/HCPCS: 73630

== ENCOUNTER 2025-04-11 12:14 | Outpatient (OUT) | payer MEDICARE, SELFPAY ==
--- OUTSIDE RECORDS SUMMARY | 2025-04-10 13:30 | XMS_ITS | Encounter Summary ---
Author Organization [facility] Address [address] [facility] [place] [place] [address] Care Team Providers Care Wastewater Treatment Engineer Name Role Phone Christian Davis MD Primary Care Provider [phone] Yordan Rodriguez DO Unavailable [phone] Christian Davis MD Unavailable [phone] Reason for Referral * Consultation (Routine) - Pending ReviewSpecialtyDiagnoses / ProceduresReferred By ContactReferred To ContactNeurology Diagnoses Weakness Lumbar radiculopathy B12 deficiency Procedures IA OFFICE/OUTPATIENT [facility] 60 MINUTES Christian Davis MD [address] [place] [address] Phone: tel: fax: Sumeet Swenson MD [address] [facility] [address] [place] [address] Phone: tel: fax: Referral IDStatusReasonStart DateExpiration DateVisits RequestedVisits [id number] Review Specialty Services Required / Reason for Visit * ReasonCommentsMedicare Annual Wellness Visit Subsequent Encounter Details DateTypeDepartmentCare Team (Latest Contact Info)Eehsjavboaz70/10/2025 1:30 PM ESTOffice Visit [facility] [place] [facility] [address] [place] [address] Christian Davis MD [address] [place] [address] Routine general medical examination at health care facility (Primary Dx); ACP (advance care planning); Degeneration of intervertebral disc of lumbar region, unspecified whether pain present; Weakness; Lumbar radiculopathy; B12 deficiency; Body mass index (BMI) 35.0-35.9, adult Social History Tobacco UseTypesPacks/DayYears UsedDateSmoking Tobacco: NeverSmokeless Tobacco: NeverPHQ-2AnswerDate RecordedPatient Health Questionnaire-2 Eqzhc420 CommentsUnknownSex and Gender InformationValueDate RecordedSex Assigned at BirthNot on fileLegal LxnDbbecc71/15/2023 6:53 PM EDTGender IdentityNot on fileSexual OrientationNot on filedocumented as of this encounter Last Filed Vital Signs Vital SignReadingTime TakenCommentsBlood Ndymwolp323/7604/10/2025 1:17 PM EST Kxibm738204/10/2025 1:17 PM ESTTemperature--Respiratory Rate--Oxygen Iawckijyex15% 04/10/2025 1:17 PM ESTInhaled Oxygen Concentration--Pzqlyp21.9 kg (185 lb) 04/10/2025 1:17 PM RNDJrwjxs147.7 cm (5' 0.5 )04/10/2025 1:17 PM ESTBody Mass Index35.5404/10/2025 1:17 PM ESTdocumented in this encounter Functional Status * Over the past 2 weeks, how often have you been bothered by any of the following problems?QuestionAnswerDate of AssessmentAuthorLittle interest or pleasure in doing thingsNot at all04/10/2025 1:00 PM Annie Contreras LPN Feeling down, depressed, or hopelessNot at all04/10/2025 1:00 PM Annie Contreras LPNPatient Health Questionnaire-2 Ljywd41906/10/2024 1:00 PM Annie Contreras LPN documented as of this encounter Progress Notes * Christian Davis MD - 04/10/2025 1:30 PM EST Images from the original note were not included. Subjective : Chief Complaint: Dayna Sanchez is an 74 y.o. female here for an annual wellness [...] MD as PCP - General (Internal Medicine) Christian Davis MD as PCP - ACO Reach Yordan Rodriguez DO as Referring Physician (Neurology) Medicare Annual Visit Over the past 2 [...] minutes 3 or more days a week?: Yes How confident are you that you can control and manage most of your health problems?: Very confident Can you mange your money, credit cards and accounts, pay bills and taxes?: Yes Cognitive Screening Three Word Registration: Village, Kitchen, Baby Clock Drawing: Normal Clock - 2 Three Word Recall: All 3 words correct - 3 Total Score (0-5 Points): 5 Pain Assessment Pain Score: 4 Advance Care Planning Do you have a living will?: Yes Do you have a medical power of bankruptcy attorney?: Yes Who is your medical power of bankruptcy attorney?: Objective : BP 126/76 Pulse 66 Ht 5' 0.5 SpO2 97% BMI 36.69 kg/m?? No results found. Physical Exam Constitutional: General: [...] Maintenance Topic Date Due Influenza Vaccine (1) 01/30/2025 COVID-19 Vaccine ( season) 2025 Medicare Annual Wellness (AWV) 04/08/2025 Pneumococcal Vaccine: 65+ Years Completed Mammogram Discontinued Colorectal Cancer Screening Discontinued Advance Care Planning Assessment/Plan Diagnoses and all orders for this visit: Routine general medical examination at health care facility ACP (advance care planning) Degeneration of intervertebral disc of lumbar region, unspecified whether pain present Weakness - TSH; Future - T4, free; Future - Comprehensive metabolic panel; Future - CBC and differential - Vitamin B12; Future - Ambulatory referral to Neurology; Future Lumbar radiculopathy - Ambulatory referral to Neurology; Future B12 deficiency - Vitamin B12; Future - Ambulatory referral to Neurology; Future Body mass index (BMI) 35.0-35.9, adult - TSH; Future - T4, free; Future No orders of the defined types were placed in this encounter. Electronically signed by Christian Davis MD on April 10, 2025 documented in this encounter Plan of Treatment DateTypeDepartmentCare Team (Latest Contact Info)Bfwumbtgzmt69/08/2025 11:00 AM ESTOffice Visit [facility] [place] [facility] [address] [facility] [address] [place] [address] Christian Davis MD [address] [place] [address] NameTypePriorityAssociated DiagnosesOrder ScheduleTSHLabRoutine Weakness Body mass index (BMI) 35.0-35.9, adult Expected: 04/10/2025 (Approximate), Expires: 04/10/2026T4, freeLabRoutine Weakness Body mass index (BMI) 35.0-35.9, adult Expected: 04/10/2025 (Approximate), Expires: 04/10/2026omprehensive metabolic panelLabRoutine Weakness Expected: 04/10/2025 (Approximate), Expires: 04/10/2026BC and differentialLab Routine Weakness Ordered: 04/10/2025Vitamin W38QvtEcscgso Weakness B12 deficiency Expected: 04/10/2025 (Approximate), Expires: 04/10/2026NameTypePriority Associated DiagnosesOrder ScheduleAmbulatory referral to NeurologyOutpatient ReferralRoutine Weakness Lumbar radiculopathy B12 deficiency Expected: 04/10/2025 (Approximate), Expires: 10/08/2025documented as of this encounter Visit Diagnoses Diagnosis Routine general medical examination at health care facility- Primary Routine general medical examination at a health care facility ACP (advance care planning) Other specified counseling Degeneration of intervertebral disc of lumbar region, unspecified whether pain present Weakness Other malaise and fatigue Lumbar radiculopathy Thoracic or lumbosacral neuritis or radiculitis, unspecified B12 deficiency Body mass index (BMI) 35.0-35.9, adult documented in this encounter Additional Health Concerns AssessmentNoted TimePHQ-9 Depression Total Score: 9:00 AM EST documented as of this encounter Care Teams Team MemberRelationshipSpecialtyStart DateEnd Date Christian Davis MD [address] [facility] [address] [place] [address] PCP - GeneralInternal Medicine10/07/22 Christian Davis MD [address] [facility] [address] [place] [address] PCP - ACO Reach2 Yordan Rodriguez DO [address] [facility] [address] [place] [address] Referring PhysicianNeurology2/11/23documented as of this encounter
--- OUTSIDE RECORDS SUMMARY | 2025-04-11 12:20 | XMS_ITS | Encounter Summary ---
Author Organization [facility] Address [address] [facility] [place] [address] Care Team Providers Care Net Software Developer Name Role Phone Christian Davis MD Primary Care Provider Elizabeth Davis NP Unavailable [phone] Yordan Rodriguez DO Unavailable [phone] Christian Davis MD Unavailable [phone] Encounter Details DateTypeDepartmentCare Team (Latest Contact Info)Guxdjklrpdn03/20/2025linisync Result Encounter [facility] External Department Unsolicited Lulú Witt NP [address] [place] [address] Social History Tobacco UseTypesPacks/DayYears UsedDateSmoking Tobacco: NeverSmokeless Tobacco: NeverPHQ-2AnswerDate RecordedPatient Health Questionnaire-2 Tdaak59306/08/2023 CommentsUnknownSex and Gender InformationValueDate RecordedSex Assigned at BirthNot on fileLegal UjaVitmts12/15/2023 6:53 PM EDTGender IdentityNot on fileSexual OrientationNot on filedocumented as of this encounter Plan of Treatment DateTypeDepartmentCare Team (Latest Contact Info)Ogsvibikrir32/08/2025 11:00 AM ESTOffice Visit [facility] [place] [facility] [address] [place] [phone] Christian Davis MD [address] [place] [address] documented as of this encounter Procedures Procedure NamePriorityDate/TimeAssociated DiagnosisCommentsVASC US LOWER EXTREMITY ARTERIAL DUPLEX WITH GRAFT ITRPVCDSM71/20/2025 2:56 PM EST documented in this encounter Results * Vascular US lower extremity arterial duplex graft bilateral (06/20/2024 2:56 PM EST)Anatomical RegionLateralityModalityLower ExtremitiesUltrasoundSpecimen (Source)Anatomical Location / LateralityCollection Method / VolumeCollection TimeReceived Time06/20/2024 2:56 PM EST Narrative 06/20/2024 2:59 PM EST [facility] ?[address] ? [place] [address] ?Vein Report ? Signed ? Patient: DAYNA SANCHEZ S ?MR#: [id number] ?? : 1950 ?Acct:[id number] ?? Age/Sex: 74 / F ?ADM Date: 06/20/24 ?? Loc: VC ? Attending Dr: Lulú Witt MORTAR MAN ? Ordering Physician: Lulú Witt MORTAR MAN ?? Date of Service: 06/20/24 ?? Procedure(s): VC Arterial Scan Kartik ?? Accession Number(s): [id number] ? cc: CHRISTIAN DAVIS ; Lulú Witt NP ? [facility] ? [address] [facility] ? [place] [address] ? Patient Name: ?? DAYNA SANCHEZ ? MRN: [facility]:[id number] ? date: 1950 ?Sex: F ?? Assigned Patient Location: VC ?? Current Patient Location: VC ?? Accession/Order Number: [id number] ?? Exam Date: 06/20/2024 ??10:58 ?Report Date: 06/20/2024 ??14:56 ? At the request of: ?? LULÚ ??MIRYAM ? Procedure: ??VC Arterial Scan Kartik ? EXAM: VC Arterial Scan Kartik ? HISTORY: R09.89 Signs and symptoms involving circulatory system. ? COMPARISON: None. ? TECHNIQUE: Man scale, color Doppler, spectral Doppler waveform analysis was ?? used to evaluate the bilateral lower extremity arteries. ? FINDINGS: No significant velocity elevations were seen to suggest a ?? significant ?? stenosis. Monophasic waveform is seen within the right posterior tibial ?? artery. ?? Color-flow is seen throughout. ? VEIN/VC Arterial Scan Kartik ?? IMPRESSION: ? No hemodynamically significant stenosis by duplex criteria. ? Electronically authenticated by: Kaye HERNANDEZ ??JOSEPH ?? Date: 06/20/2024 ??14:56 ? Dictated By: ?Kaye Dominguez M.D. ? Signed By: ?06/20/241458 ? DD/ 55 ? TD/TT: ? Director Of Medical Staff Services: Procedure Note Radiology, Radiologist, MD - 06/20/2024 [place] [address] Vein Report Signed Patient: DAYNA SANCHEZ SMR#: [id number] : 1950cct:[id number] Age/Sex: 74 / FADM Date: 06/20/24 Loc: VC Attending Dr: Lulú Witt NP Ordering Physician: Lulú Witt NP Date of Service: 06/20/24 Procedure(s): VC Arterial Scan Kartik Accession Number(s): [id number] cc: CHRISTIAN DAVIS ; Lulú Witt NP The [place] [id number] Patient Name: DAYNA SANCHEZ MRN: [id number] date: 1950 Sex: F Assigned Patient Location: Current Patient Location: Accession/Order Number: [id number] Exam Date: 06/20/2024 10:58 Report Date: 06/20/2024 14:56 At the request of: LULÚ WITT Procedure: VC Arterial Scan Kartik EXAM: VC Arterial Scan Kartik HISTORY: R09.89 Signs and symptoms involving circulatory system. COMPARISON: None. TECHNIQUE: Man scale, color Doppler, spectral Doppler waveform analysiswas used to evaluate the bilateral lower extremity arteries. FINDINGS: No significant velocity elevations were seen to suggest a significant stenosis. Monophasic waveform is seen within the right posterior tibial artery. Color-flow is seen throughout. VEIN/VC Arterial Scan Kartik IMPRESSION: No hemodynamically significant stenosis by duplex criteria. Electronically authenticated by: Kaye DOMINGUEZ Date: 06/20/2024 14:56 Dictated By: Kaye Dominguez M.D. Signed By:06/20/24 1459 DD/ 1456 TD/TT: Director Of Medical Staff Services: Authorizing ProviderResult TypeResult StatusSaracooper Witt NPIMG US PROCEDURES Final Result documented in this encounter Visit Diagnoses Not on filedocumented in this encounter Additional Health Concerns AssessmentNoted TimePHQ-9 Depression Total Score: 9:00 AM EST documented as of this encounter Care Teams Team MemberRelationshipSpecialtyStart DateEnd Date Christian Davis MD [address] [place] [address] PCP - GeneralInternal Medicine10/07/22 Elizabeth Davis, MORTAR MAN [address] [place] [address] PCP - ACO Reach Christian Davis MD [address] [place] [address] PCP - ACO Reach07/08/24 Yordan Rodriguez DO [address] [place] [address] Referring PhysicianNeurology2documented as of this encounter
--- OUTSIDE RECORDS SUMMARY | 2025-04-11 12:20 | XMS_ITS | Encounter Summary ---
Author Organization [facility] Address [address] [facility] [place] [address] Care Team Providers Care Benefits Consulting Analyst Name Role Phone Christian Davis MD Primary Care Provider Elizabeth Davis NP Unavailable Yordan Rodriguez DO Unavailable [phone] Christian Davis MD Unavailable [phone] Encounter Details DateTypeDepartmentCare Team (Latest Contact Info)Twppyldwqnl31/24/2025linisync Result Encounter [facility] External Department Unsolicited Lulú Witt NP [address] [place] [address] Social History Tobacco UseTypesPacks/DayYears UsedDateSmoking Tobacco: NeverSmokeless Tobacco: NeverPHQ-2AnswerDate RecordedPatient Health Questionnaire-2 Jygoo04706/08/2023 CommentsUnknownSex and Gender InformationValueDate RecordedSex Assigned at BirthNot on fileLegal UerIekpqo86/15/2023 6:53 PM EDTGender IdentityNot on fileSexual OrientationNot on filedocumented as of this encounter Plan of Treatment DateTypeDepartmentCare Team (Latest Contact Info)Xkcpoqgyrka60/08/2025 11:00 AM ESTOffice Visit [facility] [place] [facility] [address] [place] [address] Christian Davis MD [address] [place] [address] documented as of this encounter Procedures Procedure NamePriorityDate/TimeAssociated DiagnosisCommentsUS ANKLE BRACHIAL INDEX (ELZA)06/24/2024 8:09 AM EST documented in this encounter Results * US ANKLE BRACHIAL INDEX (ELZA) (06/24/2024 8:09 AM EST)Anatomical Region LateralityModalityRadiographic ImagingSpecimen (Source)Anatomical Location / LateralityCollection Method / VolumeCollection TimeReceived Time06/24/2024 8:09 AM EST Narrative 06/24/2024 8:11 AM EST [facility] ?[address] ? [place] [address] ?Vein Report ? Signed ? Patient: DAYNA SANCHEZ S ?MR#: [id number] ?? : 1950 ?Acct:[id number] ?? Age/Sex: 74 / F ?ADM Date: 06/20/24 ?? Loc: VC ? Attending Dr: Lulú Witt COLLAR TRIMMER ? Ordering Physician: Lulú Witt COLLAR TRIMMER ?? Date of Service: 06/20/24 ?? Procedure(s): VC Ankle Brachial Index ?? Accession Number(s): [id number] ? cc: CHRISTIAN DAVIS ; Lulú Witt NP ? [facility] ? [facility]. [facility] ? [place] [address] ? Patient [facility]: ?? [facility] ? MRN: [facility]:[id number] ? date: 1950 ?Sex: F ?? Assigned Patient Location: VC ?? Current Patient Location: VC ?? Accession/Order Number: [id number] ?? Exam Date: 06/20/2024 ??10:58 ?Report Date: 06/24/2024 ??08:09 ? At the request of: ?? LULÚ ??MIRYAM ? Procedure: ??VC Ankle Brachial Index ? EXAM: VC Ankle Brachial Index ? HISTORY: R09.89 Signs and symptoms involving circulatory system ? COMPARISON: None. ? FINDINGS: ? Segmental pressures presented as follows (right, left) in mmHg. ? Brachial: 158, 143 ?? DPA: 172, 156 ?? GRAIN OPERATOR: 184, 171 ?? 1st Toe: 158, 207 ? ELZA: 1.16, 1.08 ?? TBI: 1.0, 1.31 ? The ABIs are Normal ?? The TBI's are Acceptable ? PVR waveforms: ? Right leg: ?? Below knee: Normal ?? Right ankle: Normal ? Left leg: ?? Below knee: Normal ?? Right ankle: Normal ? VEIN/VC Ankle Brachial Index ?? IMPRESSION: ? Normal exam ? Electronically authenticated by: INOCENTE ??BISHOP ?? Date: 06/24/2024 ??08:09 ? Dictated By: ?Inocente Alas M.D. ? Signed By: ?06/24/24 0811 ? DD/ 0809 ? TD/TT: ? Oss Architect: Procedure Note Radiology, Radiologist, MD - 06/24/2024 [place] [address] Vein Report Signed Patient: DAYNA SANCHEZ SMR#: [id number] : 1950cct:[id number] Age/Sex: 74 / FADM Date: 06/20/24 Loc: Attending Dr: Lulú Witt COLLAR TRIMMER Ordering Physician: Lulú Witt NP Date of Service: 06/20/24 Procedure(s): Ankle Brachial Index Accession Number(s): [id number] cc: CHRISTIAN DAVIS ; Lulú Witt NP The [address] [address] Patient Name: DAYNA SANCHEZ MRN: [id number] date: 1950 Sex: F Assigned Patient Location: Current Patient Location: Accession/Order Number: [id number] Exam Date: 06/20/2024 10:58 Report Date: 06/24/2024 08:09 At the request of: LULÚ WITT Procedure: VC Ankle Brachial Index EXAM: Ankle Brachial Index HISTORY: R09.89 Signs and symptoms involving circulatory system COMPARISON: None. FINDINGS: Segmental pressures presented as follows (right, left) in mmHg. Brachial: 158, 143 DPA: 172, 156 GRAIN OPERATOR: 184, 171 1st Toe: 158, 207 ELZA: 1.16, 1.08 TBI: 1.0, 1.31 The ABIs are Normal The TBI's are Acceptable PVR waveforms: Right leg: Below knee: Normal Right ankle: Normal Left leg: Below knee: Normal Right ankle: Normal VEIN/VC Ankle Brachial Index IMPRESSION: Normal exam Electronically authenticated by: INOCENTE ALAS Date: 06/24/2024 08:09 Dictated By: nIocente Alas M.D. Signed By:06/24/24810 DD/ 8 TD/TT: Oss Architect: Authorizing ProviderResult TypeResult StatusSaracooper Witt NPIMG XR PROCEDURES Final Result documented in this encounter Visit Diagnoses Not on filedocumented in this encounter Additional Health Concerns AssessmentNoted TimePHQ-9 Depression Total Score: 9:00 AM EST documented as of this encounter Care Teams Team MemberRelationshipSpecialtyStart DateEnd Date Christian Davis MD [address] [place] [address] PCP - GeneralInternal Medicine10/07/22 Elizabeth Davis, COLLAR TRIMMER [address] [place] [address] PCP - ACO Reach/ Christian Davis MD [address] [place] [address] PCP - ACO Reach07/08/24 Yordan Rodriguez DO [address] [place] [address] Referring PhysicianNeurology2/11/23documented as of this encounter
--- OUTSIDE RECORDS SUMMARY | 2025-04-11 12:21 | XMS_ITS | Encounter Summary ---
Author Organization [facility] Address [address] [facility] [place] [address] Care Team Providers Care Tobacco Prizer Name Role Phone Christian Davis MD Primary Care Provider Elizabeth Davis MEDICAL CLAIMS SPECIALIST Unavailable [phone] Yordan Rodriguez DO Unavailable [phone] Christian Davis MD Unavailable [phone] Encounter Details DateTypeDepartmentCare Team (Latest Contact Info)Tavnrhgwdrw71/20/2024linisync Result Encounter [facility] External Department Unsolicited Christian Davis MD [address] [place] [address] Social History Tobacco UseTypesPacks/DayYears UsedDateSmoking Tobacco: NeverSmokeless Tobacco: NeverPHQ-2AnswerDate RecordedPatient Health Questionnaire-2 Vojzt05306/08/2023 CommentsUnknownSex and Gender InformationValueDate RecordedSex Assigned at BirthNot on fileLegal RomHginlt86/15/2023 6:53 PM EDTGender IdentityNot on fileSexual OrientationNot on filedocumented as of this encounter Plan of Treatment DateTypeDepartmentCare Team (Latest Contact Info)Zioqekywnkr31/08/2025 11:00 AM ESTOffice Visit [facility] [address] [place] [phone] Christian Davis MD [address] [place] [address] documented as of this encounter Procedures Procedure NamePriorityDate/TimeAssociated DiagnosisCommentsMM TOMOSYNTHESIS SCREENING BI04/20/2024 8:24 AM EST documented in this encounter Results * MM TOMOSYNTHESIS SCREENING (04/20/2024 8:24 AM EST)Anatomical Region LateralityModalityOtherSpecimen (Source)Anatomical Location / Laterality Collection Method / VolumeCollection TimeReceived Time04/20/2024 8:24 AM EST Narrative 04/20/2024 8:25 AM EST [facility] ?[address] ? [place] [address] ? Mammography Report ? Signed ? Patient: DAYNA SANCHEZ S ?MR#: [id number] ?? : 1950 ?Acct:[id number] ?? Age/Sex: 73 / F ?ADM Date: 04/19/24 ?? Loc: MAMMO ? Attending Dr: CHRISTIAN DAVIS ? Ordering Physician: CHRISTIAN DAVIS ? Results: ? Date of Service: 04/19/24 ?Follow Up: ? Procedure(s): MM tomosynthesis screening BI ?? Accession Number(s): [id number] ? cc: CHRISTIAN DAVIS ? Patient Name: ? DAYNA SIMSAUER ? MR#: [id number] ? : 1950 ? Exam Date: 04/19/2024 ?? Ordering Doctor: DR CHRISTIAN DAVIS M.D. ? RADIOLOGY REPORT ? PROCEDURE: ? MM TOMOSYNTHESIS SCREENING BI ? COMPARISON: ? MG MAMM SCREEN 3D MARIO CAD, 03/25/2022. ??MM TOMOSYNTHESIS ?? SCREENING BI, 04/17/2023. ? INDICATIONS: ? Screening ? Calculator Name ? NCI Breast Cancer Risk Assessment Tool ?? 5 Year Breast Cancer Risk ? 1.70% ?? Lifetime Breast Cancer Risk ? 3.80% ?? Personal Breast Cancer ?No ?? Personal Ovarian Cancer ? No ?? Treatments ? None ?? Family Cancers ? Mother with lymphoma ??cancer at age 85; Father with stomach ?? cancer at age 68. ? LOCATION: ? [facility] ? BREAST COMPOSITION: ? There are scattered areas of fibroglandular density. ? FINDINGS: ? DIAGNOSTIC CATEGORY 2--BENIGN FINDING. NO CHANGE FROM COMPARISON. ? Scattered benign-appearing calcifications are present. ??Scattered ?? benign-appearing lymph nodes are present. ? RIGHT BREAST: ??No significant suspicious finding. ? LEFT BREAST: ??No significant suspicious finding. ? RECOMMENDATIONS: ? ROUTINE MAMMOGRAM AND CLINICAL EVALUATION IN 12 MONTHS. ? PLEASE NOTE: ??A NORMAL MAMMOGRAM DOES NOT EXCLUDE THE POSSIBILITY OF BREAST ?? CANCER. ??A CLINICALLY SUSPICIOUS PALPABLE LUMP SHOULD BE BIOPSIED. ? Dictated by: Rhett Hernandez MD on 04/20/2024 at 08:23 ? Approved by: Rhett Hernandez MD on 04/20/2024 at 08:24 ? Dictated By: ?Rhett Hernandez M.D. ? Signed By: ?04/20/24 0825 ? DD/ 0824 ? TD/TT: ? Floor Steward/Stewardess: Procedure Note Radiology, Radiologist, MD - 04/20/[address] [address] Mammography Report Signed Patient: DAYNA SANCHEZ [facility]#: [id number] : 8Acct:[id number] Age/Sex: 73 / FADM Date: 04/19/24 Loc: MAMMO Attending Dr: CHRISTIAN DAVIS Ordering Physician: CHRISTIAN DAVISResults: Date of Service: 04/19/24Follow Up: Procedure(s): MM tomosynthesis screening BI Accession Number(s): [id number] cc: CHRISTIAN DAVIS Patient Name: DAYNA SANCHEZ MR#: [id number] : 1950 Exam Date: 04/19/2024 Ordering Doctor: DR CHRISTIAN DAVIS M.D. RADIOLOGY REPORT PROCEDURE: MM TOMOSYNTHESIS SCREENING BI COMPARISON: MG MAMM SCREEN 3D MARIO CAD, 03/25/2022. MM TOMOSYNTHESIS SCREENING BI, 04/17/2023. INDICATIONS: Screening Calculator Name NCI Breast Cancer Risk Assessment Tool 5 Year Breast Cancer Risk 1.70% Lifetime Breast Cancer Risk 3.80% Personal Breast Cancer No Personal Ovarian Cancer No Treatments None Family Cancers Mother with lymphoma cancer at age 85; Father withstomach cancer at age 68. LOCATION: [facility] BREAST COMPOSITION: There are scattered areas of fibroglandulardensity. FINDINGS: DIAGNOSTIC CATEGORY 2--BENIGN FINDING. NO CHANGE FROM COMPARISON. Scattered benign-appearing calcifications are present. Scattered benign-appearing lymph nodes are present. RIGHT BREAST: No significant suspicious finding. LEFT BREAST: No significant suspicious finding. RECOMMENDATIONS: ROUTINE MAMMOGRAM AND CLINICAL EVALUATION IN 12 MONTHS. PLEASE NOTE: A NORMAL MAMMOGRAM DOES NOT EXCLUDE THE POSSIBILITY OFBREAST CANCER. A CLINICALLY SUSPICIOUS PALPABLE LUMP SHOULD BE BIOPSIED. Dictated by: Rhett Hernandez MD on 04/20/2024 at 08:23 Approved by: Rhett Hernandez MD on 04/20/2024 at 08:24 Dictated By: Rhett Hernandez M.D. Signed By:04/20/24824 DD/ 3 TD/TT: Floor Steward/Stewardess: Authorizing ProviderResult TypeResult StatusDaniotto Davis MDCLINISYNC IMAGING Final Result documented in this encounter Visit Diagnoses Not on filedocumented in this encounter Additional Health Concerns AssessmentNoted TimePHQ-9 Depression Total Score: 9:00 AM EST documented as of this encounter Care Teams Team MemberRelationshipSpecialtyStart DateEnd Date Christian Davis MD [address] [place] [address] PCP - GeneralInternal Medicine10/07/22 Elizabeth Davis MEDICAL CLAIMS SPECIALIST [address] [facility] [address] [place] [address] PCP - ACO Reach/11/23 Christian Davis MD [address] [place] [address] [place] [address] PCP - ACO Reach07/08/24 Yordan Rodriguez DO [address] [place] [address] Referring PhysicianNeurology2/11/23documented as of this encounter
--- OUTSIDE RECORDS SUMMARY | 2025-04-11 12:21 | XMS_ITS | Encounter Summary ---
Author Organization [facility] Address [address] [facility] [place] [address] Care Team Providers Care Vehicle Leasing And Rental Manager Name Role Phone Christian Davis MD Primary Care Provider [phone] Yordan Rodriguez DO Unavailable [phone] Christian Davis MD Unavailable [phone] Encounter Details DateTypeDepartmentCare Team (Latest Contact Info)Lrdcmwhghfs49/10/2025amboo flowsheet [facility] [address] [place] [phone] Christian Davis MD [address] [place], [place] [id number] Social History Tobacco UseTypesPacks/DayYears UsedDateSmoking Tobacco: NeverSmokeless Tobacco: NeverPHQ-2AnswerDate RecordedPatient Health Questionnaire-2 Teeey14906/10/2024 CommentsUnknownSex and Gender InformationValueDate RecordedSex Assigned at BirthNot on fileLegal XfsUgjwwv08/15/2023 6:53 PM EDTGender IdentityNot on fileSexual OrientationNot on filedocumented as of this encounter Functional Status * Over the past 2 weeks, how often have you been bothered by any of the following problems?QuestionAnswerDate of AssessmentAuthorLittle interest or pleasure in doing thingsNot at all04/10/2025 1:00 PM Annie Contreras LPN Feeling down, depressed, or hopelessNot at all04/10/2025 1:00 PM Annie Contreras LPNPatient Health Questionnaire-2 Mpatt05406/10/2024 1:00 PM Annie Contreras LPN documented as of this encounter Plan of Treatment DateTypeDepartmentCare Team (Latest Contact Info)Nfbyarykjmq44/08/2025 11:00 AM ESTOffice Visit [facility] [place] [facility] [address] [facility] [address] [place] [phone] Christian Davis MD [address] [place] [address] documented as of this encounter Visit Diagnoses Not on filedocumented in this encounter Additional Health Concerns AssessmentNoted TimePHQ-9 Depression Total Score: 9:00 AM EST documented as of this encounter Care Teams Team MemberRelationshipSpecialtyStart DateEnd Date Christian Davis MD [address] [facility] [address] [place] [address] PCP - GeneralInternal Medicine10/07/22 Christian Davis MD [address] [facility] [address] [place] [address] PCP - ACO Reach2 Yordan Rodriguez DO [address] [place] [address] Referring PhysicianNeurology2documented as of this encounter
--- OUTSIDE RECORDS SUMMARY | 2025-04-11 12:21 | XMS_ITS | CCD ---
Author Organization [facility] CliniSywi Care Team Providers Care Rotary Drier Feeder Name Role Phone DR CHRISTIAN DAVIS Admitting Unavailable ZOEY, DR GARCIA Attending Unavailable ZOEY, DR GARCIA Consulting Unavailable ZOEY, DR GARCIA Primary Care Unavailable ARP, DR INOCENTE Voss Consulting Unavailable ZOEY, DR GARCIA Admitting Unavailable ZOEY, DR GARCIA Attending Unavailable ZOEY, DR GARCIA Primary Care Unavailable Christian Davis MD Primary Care Provider Elizabeth Davis NP Unavailable Kunal Rodriguez Attending Unavailab Kunal Wheeler Admitting Unavailab Christian Richter Primary Care Unavailable Kunal Rodriguez DO Unavailable Christian Davis MD Unavailable Kunal Rodriguez DO Unavailable Christian Davis MD Primary Care Provider Kunal Rodriguez DO Unavailable MOISES, ASHLEY Admitting Unavailable MOISES, ASHLEY Attending Unavailable CHRISTIAN DAVIS Primary Care Unavailable MOISES, ASHLEY Attending Unavailable MOISESRENEIN Admitting Unavailable CHRISTIAN DAVIS Primary Care Unavailable MOISES, ASHLEY Admitting Unavailable MOISES, ASHLEY Attending Unavailable CHRISTIAN DAVIS Primary Care Unavailable MOISES, ASHLEY Admitting Unavailable MOISES, ASHLEY Attending Unavailable CHRISTIAN DAVIS Primary Care Unavailable Susan LINDO, Elizabeth Jorge Unavailable Kunal Rodriguez DO Unavailable Elizabeth Davis NP Unavailable AUTUMN WITT Attending Unavailable KUNAL RODRIGUEZ Attending Unavailable AUTUMN WITT Referring Unavailable CHRISTIAN DAVIS Attending Unavailable KUNAL RODRIGUEZ Attending Unavailable KUNAL RODRIGUEZ Referring Unavailable AUTUMN WITT Attending Unavailable Allergies Allergy ClassificationReported Allergen(s)Allergy TypeDate of OnsetReaction(s) Facility (20 sources)Acetaminophen / HYDROcodoneDrug Xydabot78-39-5422Jbniaomr, Headaches [facility] Healthcare (20 sources)Acetaminophen / oxyCODONEDrug Qmwuows61-41-5857Qnfthvjt, Headaches [facility] Healthcare (20 sources)AmoxicillinDrug Axayvfs64-90-6350[facility] Medications Current Medications MedicationDrug Class(es)DatesSig (Normalized)Sig (Original)acetaminophen 500 mg oral tablet (4 sources)take 1 tablet by mouth every six hours as needed for pain acetaminophen (TYLENOL) 500 MG tablet Take 1 tablet by mouth every 6 hours as needed for Pain Activecalcium carbonate 1500 mg oral tablet (4 sources)take 1 tablet by mouth once dailycalcium carbonate 600 MG TABS tablet Take 1 tablet by mouth daily ActiveCalcium Carbonate-Vit D-Min (CALCIUM 600+D3 PLUS MINERALS) 600-800 MG-UNIT CHEW (2 sources)Calcium Carbonate-Vit D-Min (CALCIUM 600+D3 PLUS MINERALS) 600-800 MG-UNIT CHEW in the morning. ActiveCalcium Carbonate-Vit D-Min (CALCIUM 600+D3 PLUS MINERALS) 600-800 MG-UNIT CHEW every 24 hours ActiveCalcium Carbonate-Vit D-Min (Calcium 600+D3 Plus Minerals) 600-800 MG-UNIT chewable tablet (20 sources)Calcium Carbonate-Vit D-Min (Calcium 600+D3 Plus Minerals) 600-800 MG-UNIT chewable tablet 1 (one) time each day at the same time. Activemeloxicam 7.5 mg oral tablet (8 sources)Nonsteroidal Anti-inflammatory DrugStart: 06-07-2024 End: 47-91-2121xqus 1 tablet by mouth once dailymeloxicam (MOBIC) 7.5 MG tablet Take 1 tablet by mouth daily 07/08/2024 ActiveMultiple Vitamin (Multi Vitamin) tablet (20 sources)Multiple Vitamin (Multi Vitamin) tablet 1 (one) time each day at the same time. ActiveMultiple Vitamin (MULTIVITAMIN) TABS tablet (4 sources)take 1 tablet by mouth once dailyMultiple Vitamin (MULTIVITAMIN) TABS tablet Take 1 tablet by mouth daily Activevitamin B12 (4 sources)Vitamin Y37lvji 1 capsule by mouth once dailyCyanocobalamin (VITAMIN B-12 CR PO) Take 1 capsule by mouth daily ActiveVITAMIN D, CHOLECALCIFEROL, PO (4 sources)take 1 capsule by mouth once dailyVITAMIN D, CHOLECALCIFEROL, PO Take 1 capsule by mouth daily Active Completed/Discontinued Medications MedicationDrug Class(es)DatesSig (Normalized)Sig (Original)bupivacaine hydrochloride 2.5 mg/ml injectable solution (8 sources)Amide Local AnestheticStart: 08-30-2024 End: 08-23-1000hcbuzvkoklx (Marcaine) 0.25 % injection 2.5 mgStart: 08-30-2024 End: .5 mg (1 mL), Injection, Once, On Thu08/30/24 at 1230, For 1 dose Start: 08-30-2024 End: 50-26-9591xlyamgdvcit (Marcaine) 0.25 % injection 2.5 mgStart: 08-30-2024 End: 52.5 mg (1 mL), Injection, Once, On Thu08/30/24 at 1230, For 1 dose Start: 05-10-2024 End: 86-41-1299mubqssrqsyh (Marcaine) 0.25 % injection 2.5 mgStart: 05-10-2024 End: 83-38-8077snvxryzfyxi (Marcaine) 0.25 % injection 2.5 mgStart: 05-10-2024 End: 42.5 mg (1 mL), Injection, Once, On Thu05/10/24 at 1015, For 1 doseStart: 05-10-2024 End: 42.5 mg (1 mL), Injection, Once, On Thu05/10/24 at 1015, For 1 dosedexamethasone phosphate 10 mg/ml injectable solution (8 sources)CorticosteroidStart: 08-30-2024 End: 17-68-6879zlzPZTDXngfim sod phos (Decadron) injection 10 mgStart: 08-30-2024 End: 70-84-587931 mg (1 mL), Injection, Once, On Thu08/30/24 at 1230, For 1 dose Start: 08-30-2024 End: 01-35-5252werSZJMEflaiw sod phos (Decadron) injection 10 mgStart: 08-30-2024 End: 57-79-213110 mg (1 mL), Injection, Once, On Thu08/30/24 at 1230, For 1 dose Start: 05-10-2024 End: 15-67-0239qpgTPAAKlxlfo sod phos (Decadron) injection 10 mgStart: 05-10-2024 End: 71-53-3563mvpRMFGRkxkot sod phos (Decadron) injection 10 mgStart: 05-10-2024 End: 85-91-603931 mg (1 mL), Injection, Once, On Thu05/10/24 at 1015, For 1 doseStart: 05-10-2024 End: 53-24-737383 mg (1 mL), Injection, Once, On Thu05/10/24 at 1015, For 1 doseiohexol (OMNIPaque) 300 MG/ML injection 2 mL (8 sources)Start: 08-30-2024 End: 06-81-2025baideoc (OMNIPaque) 300 MG/ML injection 2 mLStart: 08-30-2024 End: mL, Injection, Once in imaging, Starting on Thu08/30/24 at 1215, For 1 doseStart: 05-10-2024 End: 61-07-3082wzuxcnl (OMNIPaque) 300 MG/ML injection 2 mLStart: 05-10-2024 End: mL, Injection, Once in imaging, Starting on Thu05/10/24 at 1008, For 1 dose Problems Active Problems Problem ClassificationProblemDateDocumented DateEpisodic/Chronic Administrative/social admission (2 sources)Patient encounter status; Translations: [Other specified counseling] 51-15-3524BddnonfrKkydsbvvgs disorders (20 sources)Other primary ovarian failure; 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]Onset: 130428-22-7425TkynhpgIuidrhtgpiimge (20 sources)Osteoarthritis of right knee joint; Translations: [Unilateral primary osteoarthritis, right knee]Onset: 008370-41-0585EhuwvwvTwyrk connective tissue disease (7 sources)Neurogenic claudication; Translations: [Other symptoms and signs involving the nervous system]11-93-5600TvbsohoaFcdsx connective tissue disease (7 sources)Other symptoms and signs involving the musculoskeletal system; Translations: [Other musculoskeletalsymptoms referable to limbs]04-06-2024 EpisodicOther connective tissue disease (12 sources)Pain in bilateral legs; Translations: [Pain in right leg]06-07-2024 EpisodicOther nutritional; endocrine; and metabolic disorders (20 sources)Body mass index 30+ - obesity; Translations: [Obesity, unspecified] Onset: 082878-04-5168JfyqxjhKaqzq nutritional; endocrine; and metabolic disorders (2 sources)Obesity caused by energy imbalance; Translations: [Morbid (severe) obesity due to excess calories]34-47-2125QbhlrpjDzfvu screening for suspected conditions (not mental disorders or infectious disease) (3 sources)Encounter for screening mammogram for malignant neoplasm of breast; Translations: [Patient encounter status]Onset: 445024-45-9742Pdjswgbo Peripheral and visceral atherosclerosis (2 sources)Intermittent claudication; Translations: [Peripheral vascular disease, unspecified]35-81-9541OkbgseoXppicafi codes; unclassified (1 source)Family history of malignant neoplasm of digestive organs; Translations: [FAM HX MALIG NEOPLASM DIGESTIV ORGN]Onset: 01-73-9785Dekpuyms Residual codes; unclassified (1 source)Family history of other malignant neoplasms of lymphoid, hematopoietic and related tissues; Translations: [FAM HX OTH MAL CORINNA LYMPH HEMATPOETC]Onset: 19-91-5883UlmrpgizYjwkrajlgcn; intervertebral disc disorders; other back problems (20 sources)Degeneration of lumbar intervertebral disc; Translations: [Lumbar degenerative disc disease]Onset: 981046-06-8758BkoqsdcQcwnabtpest; intervertebral disc disorders; other back problems (19 sources)Lumbosacral radiculopathy; Translations: [Radiculopathy, lumbosacral region]04-93-0280Fpzeylxj Past or Other Problems Problem ClassificationProblemDateDocumented DateEpisodic/ChronicMood disorders (20 sources)Mood disordersOnset: Other bone disease and musculoskeletal deformities (20 sources)Osteopenia; Translations: [Other specified disorders of bone density and structure, right thigh]Onset: 482781-40-6279MacyhrsyTwlkszeozbzx (5 sources)Weakness of both lower ucdvorxhrzv80-62-9630 Results Test NameValueInterpretationReference RangeFacilityXR FOOT RT MIN 3Von 56-55-1433RqiEarly, [place] [address] XRay Report Signed Patient: DAYNA VALENCIA MR#: [id number] : 1950 Acct:[id number] Age/Sex: 74 / F ADM Date: 03/06/25 Loc: RAD Attending Dr: Dimitrios Winter D.P.M. Ordering Physician: Dimitrios Winter D.P.M. Date of Service: 03/06/25 Procedure(s): XR foot RT min 3V Accession Number(s): [id number] cc: CHRISTIAN DAVIS ; Dimitrios Winter D.P.M. [place] [address] Patient Name: DAYNA VALENCIA MRN: [id number] date: 1950 Sex: F Assigned Patient Location: [facility] Current Patient Location: [facility] Accession/Order Number: [id number] Exam Date: 03/06/2025 14:45 Report Date: 03/06/2025 20:46 At the request of: DIMITRIOS WINTER DPM Procedure: XR foot RT min 3V XR foot RT min 3V 03/06/2025 2:53 PM SIGNS AND SYMPTOMS: Right foot pain PROTOCOL: 3 views of the right foot COMPARISON: None FINDINGS: The bones are in anatomic alignment. There is mild narrowing of the first metatarsophalangeal joint. There is no fracture or dislocation. There is plantar and Achilles surface calcaneal spurring. There is accompanying soft tissue swelling/thickening at the Achilles insertion. XR/XR foot RT min 3V IMPRESSION: No acute bony injury. Degenerative changes are noted at the first metatarsophalangeal joint. Achilles surface calcaneal spurring with soft tissue thickening at the Achilles insertion. Impression dictated by: Willis Batista M.D. 03/06/2025 8:46 PM Dictation Location: [place] [address] Electronically authenticated by: [id number] Y Date: 03/06/2025 20:46 Dictated By: Willis Batista M.D. Signed By: 03/06/252048 DD/ 45 TD/TT: Shoe Turner:TBHRadiology, Radiologist, MD - 03/06/2025 [place] [address] XRay Report Signed Patient: DAYNA VALENCIA MR#: [id number] : 1950 Acct:[id number] Age/Sex: 74 / F ADM Date: 03/06/25 Loc: RAD Attending Dr: Dimitrios Winter D.P.M. Ordering Physician: Dimitrios Winter D.P.M. Date of Service: 03/06/25 Procedure(s): XR foot RT min 3V Accession Number(s): [id number] cc: CHRISTIAN DAVIS ; Dimitrios Winter D.P.M. [facility] [place] [address] Patient Name: DAYNA VALENCIA MRN: [id number] date: 1950 Sex: F Assigned Patient Location: [facility] Current Patient Location: [facility] Accession/Order Number: [id number] Exam Date: 03/06/2025 14:45 Report Date: 03/06/2025 20:46 At the request of: DIMITRIOS WINTER DPLuisito Procedure: XR foot RT min 3V XR foot RT min 3V 03/06/2025 2:53 PM SIGNS AND SYMPTOMS: Right foot pain PROTOCOL: 3 views of the right foot COMPARISON: None FINDINGS: The bones are in anatomic alignment. There is mild narrowing of the first metatarsophalangeal joint. There is no fracture or dislocation. There is plantar and Achilles surface calcaneal spurring. There is accompanying soft tissue swelling/thickening at the Achilles insertion. XR/XR foot RT min 3V IMPRESSION: No acute bony injury. Degenerative changes are noted at the first metatarsophalangeal joint. Achilles surface calcaneal spurring with soft tissue thickening at the Achilles insertion. Impression dictated by: Willis Batista M.D. 03/06/2025 8:46 PM Dictation Location: [place] [address] Electronically authenticated by: [id number] Y Date: 03/06/2025 20:46 Dictated By: Willis Batista M.D. Signed By: 03/06/252048 DD/ 45 TD/TT: Shoe Turner: [facility] HealthcareRadiology Study observation (narrative)NOMS HealthcareXR FOOT RT MIN 3VOrdered By: Radiologist Radiology on 75-44-5134VQVW Mister Spex Work Phone: [facility] FOR SURGICAL PROCEDURESon 59-82-9546Nhtxxvaht exam is complete. No Radiologist dictation. Please follow up with ordering provider. Final resultMHPTRadiology, RadiologistMD - 01/26/2025 Radiology exam is complete. No Radiologist dictation. Please follow up with ordering provider. Final result [facility] HealthcareRadiology Study observation (narrative)[facility] HealthcareFLUORO FOR SURGICAL PROCEDURESOrdered By: Radiologist Radiology on 24-87-6389YKOH Mister Spex Work Phone: [facility] SURGICAL PROCEDURESon 94-77-5852Mydxfgdde exam is complete. No Radiologist dictation. Please follow up with ordering provider. Final resultMHPTRadiology, RadiologistMD - 01/05/2025 Radiology exam is complete. No Radiologist dictation. Please follow up with ordering provider. Final result N[facility]S HealthcareFLUORO FOR SURGICAL PROCEDURESRadiology exam is complete. No Radiologist dictation. Please follow up with ordering provider. Final resultNormalDayton Va Medical CenterRadiology Study observation (narrative) NOM[facility] HealthcareFLUORO FOR SURGICAL PROCEDURESOrdered By: Radiologist Radiology on 00-20-7481DHXX Mister Spex Work Phone: Guidance-- during surgeryon 58-58-4253Jznfjmsxs exam is complete. No Radiologist dictation. Please follow up with ordering provider. [facility] RIS CONSOLIDATEDFLUORO FOR SURGICAL PROCEDURESon 14-30-5231Pzvjmtaft exam is complete. No Radiologist dictation. Please follow up with ordering provider. Final resultMHPTRadiology, Radiologist, - 12/08/2024 Radiology exam is complete. No Radiologist dictation. Please follow up with ordering provider. Final result [facility] HealthcareFLUORO FOR SURGICAL PROCEDURESRadiology exam is complete. No Radiologist dictation. Please follow up with ordering provider. Final resultNormalDayton Va Medical CenterRadiology Study observation (narrative) [facility] HealthcareFLUORO FOR SURGICAL PROCEDURESOrdered By: Radiologist Radiology on 81-16-0466WSSH Mister Spex Work Phone: [facility] FOR SURGICAL PROCEDURESon 40-69-1507Xlnobvhnt exam is complete. No Radiologist dictation. Please follow up with ordering provider. Final resultMHPTRadiology, Radiologist, - 11/24/2024 Radiology exam is complete. No Radiologist dictation. Please follow up with ordering provider. Final result N[facility]S HealthcareFLUORO FOR SURGICAL PROCEDURESRadiology exam is complete. No Radiologist dictation. Please follow up with ordering provider. Final resultNormalMercy Jasper General HospitalRadiology Study observation (narrative) [facility] HealthcareFLUORO FOR SURGICAL PROCEDURESOrdered By: Radiologist Radiology on 32-71-2530SWQT Mister Spex Work Phone: Guidance-- during surgeryon 95-82-0571Nmxbyvvsc exam is complete. No Radiologist dictation. Please follow up with ordering provider. [facility]ITALNo Panel Informationon 96-91-8385Prbujkbhceasusana Rodriguez DO 08/30/2024 4:26 PM Nerve Block Date/Time: 08/30/2024 12:16 PM Performed by: Kunal Rodriguez DO Authorized by: Autumn Witt NP Consent: Consent obtained: Written Consent given by: Patient [place] protocol: Procedure explained and questions answered to patient or proxy's satisfaction: yes Patient identity confirmed: Verbally with patient Location: Body area: Trunk Trunk nerve: Lumbar Procedure details: Guidance: fluoroscopy Steroid injected: Dexamethasone Post-procedure details: Procedure completion: [facility]anoAnkle-brachial indexon 47-33-0697[address] [address] Vein Report Signed Patient: DAYNA VALENCIA MR#: [id number] : 1950 Acct:[id number] Age/Sex: 74 / F ADM Date: 06/20/24 Loc: VC Attending Dr: Autumn Witt LAW RESEARCHER Ordering Physician: Autumn Witt NP Date of Service: 06/20/24 Procedure(s): VC Ankle Brachial Index Accession Number(s): [id number] cc: CHRISTIAN DAVIS ; Autumn Witt NP [facility] [place] [address] Patient Name: DAYNA VALENCIA MRN: [employer]:[id number] date: 1950 Sex: F Assigned Patient Location: Current Patient Location: Accession/Order Number: [id number] Exam Date: 06/20/2024 10:58 Report Date: 06/24/2024 08:09 At the request of: AUTUMN WITT Procedure: VC Ankle Brachial Index EXAM: Ankle Brachial Index HISTORY: R09.89 Signs and symptoms involving circulatory system COMPARISON: None. FINDINGS: Segmental pressures presented as follows (right, left) in mmHg. Brachial: 158, 143 DPA: 172, 156 BARREL BRIDGE ASSEMBLER: 184, 171 1st Toe: 158, 207 ELZA: 1.16, 1.08 TBI: 1.0, 1.31 The ABIs are Normal The TBI's are Acceptable PVR waveforms: Right leg: Below knee: Normal Right ankle: Normal Left leg: Below knee: Normal Right ankle: Normal VEIN/VC Ankle Brachial Index IMPRESSION: Normal exam Electronically authenticated by: INOCENTE ALAS Date: 06/24/2024 08:09 Dictated By: Inocente Alas M.D. Signed By: 06/24/24810 DD/ 8 TD/TT: Shoe Turner:HERONHRadiology, Radiologist, - 06/24/2024 [place] [address] Vein Report Signed Patient: DAYNA VALENCIA MR#: [id number] : 1950 Acct:[id number] Age/Sex: 74 / F ADM Date: 06/20/24 Loc: VC Attending Dr: Autumn Witt LAW RESEARCHER Ordering Physician: Autumn Witt NP Date of Service: 06/20/24 Procedure(s): VC Ankle Brachial Index Accession Number(s): [id number] cc: CHRISTIAN DAVIS ; Autumn Witt NP The [address] [id number] Patient Name: DAYNA VALENCIA MRN: [id number] date: 1950 Sex: F Assigned Patient Location: Current Patient Location: Accession/Order Number: [id number] Exam Date: 06/20/2024 10:58 Report Date: 06/24/2024 08:09 At the request of: AUTUMN WITT Procedure: VC Ankle Brachial Index EXAM: VC Ankle Brachial Index HISTORY: R09.89 Signs and symptoms involving circulatory system COMPARISON: None. FINDINGS: Segmental pressures presented as follows (right, left) in mmHg. Brachial: 158, 143 DPA: 172, 156 BARREL BRIDGE ASSEMBLER: 184, 171 1st Toe: 158, 207 ELZA: 1.16, 1.08 TBI: 1.0, 1.31 The ABIs are Normal The TBI's are Acceptable PVR waveforms: Right leg: Below knee: Normal Right ankle: Normal Left leg: Below knee: Normal Right ankle: Normal VEIN/VC Ankle Brachial Index IMPRESSION: Normal exam Electronically authenticated by: INOCENTE ALAS Date: 06/24/2024 08:09 Dictated By: Inocente Alas M.D. Signed By: 06/24/24810 DD/ 8 TD/TT: Shoe Turner: [facility] HealthcareRadiology Study observation (narrative)NOMS HealthcareAnkle- brachial indexOrdered By: Radiologist Radiology on 10-06-6871NRXC Mister Spex Work Phone: Vascular lower extremity arterial duplex graft bilateralon 97-25-4262DiiEarly, [place] [address] Vein Report Signed Patient: DAYNA VALENCIA MR#: [id number] : 1950 Acct:[id number] Age/Sex: 74 / F ADM Date: 06/20/24 Loc: VC Attending Dr: Autumn Witt LAW RESEARCHER Ordering Physician: Autumn Witt NP Date of Service: 06/20/24 Procedure(s): VC Arterial Scan Kartik Accession Number(s): [id number] cc: CHRISTIAN DAVIS ; Autumn Witt NP The [place] [id number] Patient Name: DAYNA VALENCIA MRN: [employer] [facility] [employer]:[id number] date: 1950 Sex: F Assigned Patient Location: Current Patient Location: VC Accession/Order Number: [id number] Exam Date: 06/20/2024 10:58 Report Date: 06/20/2024 14:56 At the request of: AUTUMN WITT Procedure: VC Arterial Scan Kartik EXAM: VC Arterial Scan Kartik HISTORY: R09.89 Signs and symptoms involving circulatory system. COMPARISON: None. TECHNIQUE: Man scale, color Doppler, spectral Doppler waveform analysis was used to evaluate the bilateral lower extremity arteries. FINDINGS: No significant velocity elevations were seen to suggest a significant stenosis. Monophasic waveform is seen within the right posterior tibial artery. Color-flow is seen throughout. VEIN/VC Arterial Scan Kartik IMPRESSION: No hemodynamically significant stenosis by duplex criteria. Electronically authenticated by: Kaye RUIZ Date: 06/20/2024 14:56 Dictated By: Kaye Ruiz M.D. Signed By: 06/20/24 1459 DD/ 1456 TD/TT: Shoe Turner:TBHRadiology, Radiologist, MD - 06/20/2024 [place] [address] Vein Report Signed Patient: DAYNA VALENCIA MR#: [id number] : 1950 Acct:[id number] Age/Sex: 74 / F ADM Date: 06/20/24 Loc: VC Attending Dr: Autumn Witt NP Ordering Physician: Autumn Witt NP Date of Service: 06/20/24 Procedure(s): VC Arterial Scan Kartik Accession Number(s): [id number] cc: CHRISTIAN DAVIS ; Autumn Witt NP [place] [id number] Patient Name: DAYNA VALENCIA MRN: [id number] date: 1950 Sex: F Assigned Patient Location: Current Patient Location: VC Accession/Order Number: [id number] Exam Date: 06/20/2024 10:58 Report Date: 06/20/2024 14:56 At the request of: AUTUMN WITT Procedure: VC Arterial Scan Kartik EXAM: VC Arterial Scan Kartik HISTORY: R09.89 Signs and symptoms involving circulatory system. COMPARISON: None. TECHNIQUE: Man scale, color Doppler, spectral Doppler waveform analysis was used to evaluate the bilateral lower extremity arteries. FINDINGS: No significant velocity elevations were seen to suggest a significant stenosis. Monophasic waveform is seen within the right posterior tibial artery. Color-flow is seen throughout. VEIN/VC Arterial Scan Kartik IMPRESSION: No hemodynamically significant stenosis by duplex criteria. Electronically authenticated by: Kaye RUIZ Date: 06/20/2024 14:56 Dictated By: Kaye Ruiz M.D. Signed By: 06/20/241458 DD/ 55 TD/TT: Shoe Turner: [facility] HealthcareRadiology Study observation (narrative)[facility] HospitalVascular US lower extremity arterial duplex graft bilateralOrdered By: Radiologist Radiology on 12-56-5245FPBL Healthcare Work Phone: all MYOGLOBINon 66-83-7661Dnhodxivn [Mass/Vol]73 ng/mL 9 - 82 ng/mLNOMS HealthcareCCF CKon 59-96-8052QW [Catalytic activity/Vol]110 U/L 26 - 192 U/LNOMS HealthcareNo Panel Informationon 78-46-1361CUYIFSQAOKIDK HealthcareMR lumbar spine wo conon 43-19-1516VZ lumbar spine wo [facility] [address] [address] MRI Report Signed Patient: Dayna Valencia MR#: [id number] : 1950 Acct:[id number] Age/Sex: 73 / F ADM Date: 05/02/24 Loc: [facility] Room: Type: REG CLI Attending Dr: Kunal Rodriguez DO Copies to: Kunal Rodriguez DO Ordering Provider: Kunal Rodirguez DO Date of Service: 05/02/24 MR/MR lumbar [...] Willis Batista M.D.05/02/2024 5:33 PM Dictation Location: [facility]--17 Transcribed By: QUE 05/02/24 1733 Dictated By: Willis Batista II, MD 05/02/24 172 Signed By: 05/02/24 173[facility] TOMOSYNTHESIS SCREENING BIon 71-66-9866RvgEarly, [place] [address] Mammography Report Signed Patient: DAYNA VALENCIA MR#: [id number] : 1950 Acct:[id number] Age/Sex: 73 / F ADM Date: 04/19/24 Loc: MAMMO Attending Dr: CHRISTIAN DAVIS Ordering Physician: CHRISTIAN DAVIS Results: Date of Service: 04/19/24 Follow Up: Procedure(s): MM tomosynthesis screening BI Accession Number(s): [id number] cc: CHRISTIAN DAVIS Patient Name: DAYNA VALENCIA MR#: [id number] : 1950 Exam Date: 04/19/2024 Ordering Doctor: DR CHRISTIAN DAVIS M.D. RADIOLOGY REPORT PROCEDURE: MM TOMOSYNTHESIS SCREENING BI COMPARISON: MG MAMM SCREEN 3D KARTIK CAD, 03/25/2022. MM TOMOSYNTHESIS SCREENING BI, 04/17/2023. INDICATIONS: Screening Calculator Name NCI Breast Cancer Risk Assessment Tool 5 Year Breast Cancer Risk 1.70% Lifetime Breast Cancer Risk 3.80% Personal Breast Cancer No Personal Ovarian Cancer No Treatments None Family Cancers Mother with lymphoma cancer at age 85; Father with stomach cancer at age 68. LOCATION: [facility] BREAST COMPOSITION: There are scattered areas of fibroglandular density. FINDINGS: DIAGNOSTIC CATEGORY 2--BENIGN FINDING. NO CHANGE [...] BIOPSIED. Dictated by: Inocente Alas MD on 04/20/2024 at 08:23 Approved by: Inocente Alas MD on 04/20/2024 at 08:24 Dictated By: Inocente Alas M.D. Signed By: 04/20/24824 DD/ 3 TD/TT: Shoe Turner:TBHRadiology, Radiologist, - 04/20/2024 [place] [address] Mammography Report Signed Patient: DAYNA VALENCIA MR#: [id number] : 1950 Acct:[id number] Age/Sex: 73 / F ADM Date: 04/19/24 Loc: MAMMO Attending Dr: CHRISTIAN DAVIS Ordering Physician: CHRISTIAN DAVIS Results: Date of Service: 04/19/24 Follow Up: Procedure(s): MM tomosynthesis screening BI Accession Number(s): [id number] cc: CHRISTIAN DAVIS Patient Name: DAYNA VALENCIA MR#: [id number] : 1950 Exam Date: 04/19/2024 Ordering Doctor: DR CHRISTIAN DAVIS M.D. RADIOLOGY REPORT PROCEDURE: MM TOMOSYNTHESIS SCREENING BI COMPARISON: MG MAMM SCREEN 3D KARTIK CAD, 03/25/2022. MM TOMOSYNTHESIS SCREENING BI, 04/17/2023. INDICATIONS: Screening Calculator Name NCI Breast Cancer Risk Assessment Tool 5 Year Breast Cancer Risk 1.70% Lifetime Breast Cancer Risk 3.80% Personal Breast Cancer No Personal Ovarian Cancer No Treatments None Family Cancers Mother with lymphoma cancer at age 85; Father with stomach cancer at age 68. LOCATION: [facility] BREAST COMPOSITION: There are scattered areas of fibroglandular density. FINDINGS: DIAGNOSTIC CATEGORY 2--BENIGN FINDING. NO CHANGE [...] BIOPSIED. Dictated by: Inocente Alas MD on 04/20/2024 at 08:23 Approved by: Inocente Alas MD on 04/20/2024 at 08:24 Dictated By: Inocente Alas M.D. Signed By: 04/20/24824 DD/ 3 TD/TT: Shoe Turner: [facility] HospitalRadiology Study observation (narrative)[facility] TOMOSYNTHESIS SCREENING BIOrdered By: Radiologist Radiology on 29-22-7543KGOO Mister Spex Work Phone: XR DEXA AXIAL SKELETONon 56-60-4669ZxkL[place] [id number] XRay Report Signed Patient: DAYNA VALENCIA MR#: [id number] : 1950 Acct:[id number] Age/Sex: 73 / F ADM Date: 04/19/24 Loc: MAMMO Attending Dr: CHRISTIAN DAVIS Ordering Physician: CHRISTIAN DAVIS Date of Service: 04/19/24 Procedure(s): XR DEXA axial skeleton Accession Number(s): [id number] cc: CHRISTIAN DAVIS [place] [id number] Patient Name: DAYNA VALENCIA MRN: [employer]:[id number] date: 1950 Sex: F Assigned Patient Location: MAMMO Current Patient Location: Accession/Order Number: [id number] Exam Date: 04/19/2024 13:36 Report Date: 04/20/2024 03:50 At the request of: CHRISTIAN DAVIS Procedure: XR DEXA axial skeleton EXAMINATION: XR DEXA axial skeleton HISTORY: Estrogen Deficiency COMPARISON: DEXA bone densitometry 03/25/2022 TECHNIQUE: Dual-energy X-ray absorptiometry (DXA) was performed. FINDINGS: SPINE ANALYSIS: Average bone mineral density is 1.212 g/cm2. T-score (standard deviation relative to young adult mean): 0.3 . -1.9% change since prior study. HIP ANALYSIS: Lowest bone mineral density is within the left femoral neck, 0.762 g/cm2. T-score (standard deviation relative to young adult mean): -2.0 . +6.1% change since prior study. XR/XR DEXA axial skeleton IMPRESSION: World Health Organization Classification: Osteopenia - Moderate Fracture Risk FRAX: Cannot be calculated. Pharmacologic treatment recommendations * No uniform recommendation applies to all patients. Management plans must be individualized. * Consider initiating pharmacologic treatment in postmenopausal women and men >= 50 years of age who have the following: Primary fracture prevention: * T-score <= - 2.5 at the femoral neck, total hip, lumbar spine, 33% radius (some uncertainty with existing data) by DXA. * Low bone mass (osteopenia: T-score between - 1.0 and - 2.5) at the femoral neck or total hip by DXA with a 10-year hip fracture risk >= 3% or a 10-year major osteoporosis-related fracture risk >= 20% (i.e., clinical vertebral, hip, forearm, or proximal humerus) based on the US-adapted FRAXregistered model. Secondary fracture prevention: * Fracture of the hip or vertebra regardless of BMD [4, 5]. * Fracture of proximal humerus, pelvis, or distal forearm in persons with low bone mass (osteopenia: T-score between - 1.0 and - 2.5). The decision to treat should be individualized in persons with a fracture of the proximal humerus, pelvis, or distal forearm who do not have osteopenia or low BMD [12, 13]. Gene MS, Bekah SL, Cate KL, Anusha EM, Emily KG, AJ, Alex ES. The clinician's guide to prevention and treatment of osteoporosis. Osteoporos Int. 2021;33(10):8239-4927. doi: 10.1007/e78646-720-93846-m. Epub 2021Sep 26. Erratum in: Osteoporos Int. 2021Dec 26;: PMID: 24240748; PMCID: KTI2459594. Electronically authenticated by: BRANDY DONALD Date: 04/20/2024 03:50 Dictated By: Brandy Donald M.D. Signed By: 04/20/24352 DD/ 9 TD/TT: Shoe Turner:TBHRadiology, Radiologist, - 04/20/2024 [place] [address] XRay Report Signed Patient: DAYNA VALENCIA MR#: [id number] : 1950 Acct:[id number] Age/Sex: 73 / F ADM Date: 04/19/24 Loc: [facility] Attending Dr: CHRISTIAN DAVIS Ordering Physician: CHRISTIAN DAVIS Date of Service: 04/19/24 Procedure(s): XR DEXA axial skeleton Accession Number(s): [id number] cc: CHRISTIAN DAVIS [place] [id number] Patient Name: DAYNA VALENCIA MRN: [facility]:[id number] date: 1950 Sex: F Assigned Patient Location: [facility] Current Patient Location: Accession/Order Number: [id number] Exam Date: 04/19/2024 13:36 Report Date: 04/20/2024 03:50 At the request of: CHRISTIAN DAVIS Procedure: XR DEXA axial skeleton EXAMINATION: XR DEXA axial skeleton HISTORY: Estrogen Deficiency COMPARISON: DEXA bone densitometry 03/25/2022 TECHNIQUE: Dual-energy X-ray absorptiometry (DXA) was performed. FINDINGS: SPINE ANALYSIS: Average bone mineral density is 1.212 g/cm2. T-score (standard deviation relative to young adult mean): 0.3 . -1.9% change since prior study. HIP ANALYSIS: Lowest bone mineral density is within the left femoral neck, 0.762 g/cm2. T-score (standard deviation relative to young adult mean): -2.0 . +6.1% change since prior study. XR/XR DEXA axial skeleton IMPRESSION: World Health Organization Classification: Osteopenia - Moderate Fracture Risk FRAX: Cannot be calculated. Pharmacologic treatment recommendations * No uniform recommendation applies to all patients. Management plans must be individualized. * Consider initiating pharmacologic treatment in postmenopausal women and men >= 50 years of age who have the following: Primary fracture prevention: * T-score <= - 2.5 at the femoral neck, total hip, lumbar spine, 33% radius (some uncertainty with existing data) by DXA. * Low bone mass (osteopenia: T-score between - 1.0 and - 2.5) at the femoral neck or total hip by DXA with a 10-year hip fracture risk >= 3% or a 10-year major osteoporosis-related fracture risk >= 20% (i.e., clinical vertebral, hip, forearm, or proximal humerus) based on the US-adapted FRAXregistered model. Secondary fracture prevention: * Fracture of the hip or vertebra regardless of BMD [4, 5]. * Fracture of proximal humerus, pelvis, or distal forearm in persons with low bone mass (osteopenia: T-score between - 1.0 and - 2.5). The decision to treat should be individualized in persons with a fracture of the proximal humerus, pelvis, or distal forearm who do not have osteopenia or low BMD [12, 13]. Gene MS, Bekah SL, Cate KL, Anusha EM, Emily KG, AJ, Alex ES. The clinician's guide to prevention and treatment of osteoporosis. Osteoporos Int. 2021;33(10):3154-2817. doi: 10.1007/o38877-349-59683-s. Epub 2021Sep 26. Erratum in: Osteoporos Int. 2021Dec 26;: PMID: 55969367; PMCID: [id number]. Electronically authenticated by: BRANDY DONALD Date: 04/20/2024 03:50 Dictated By: Brandy Donald M.D. Signed By: 04/20/24352 DD/ 9 TD/TT: Shoe Turner: [facility] HealthcareRadiology Study observation (narrative)[facility]sther HealthcareXR DEXA AXIAL SKELETONOrdered By: Radiologist Radiology on 49-17-8553[facility] Work Phone: cOMPREHENSIVE METABOLIC PANELon 54-04-0558Zvtvqlm [Mass/Vol]4.1 g/dLNormal3.6-5.1Quest DiagnosticsComment on above:Performed By: #### [id number] #### [facility] of [address], [address] [place] [address] Microbiology Supervisor: Alexandro Zambrano MDAlbumin/Globulin [Mass ratio]1.6 {ratio}Normal 1.0-2.5Quest DiagnosticsComment on above:Performed By: #### [id number] #### [facility] of [address], [address] [place] [address] Microbiology Supervisor: Alexandro Zambrano MDALP [Catalytic activity/Vol]86 U/QRriehw86-546 Quest DiagnosticsComment on above:Performed By: #### 05923 #### [facility] of [place] [address] Microbiology Supervisor: Alexandro Zambrano MDALT [Catalytic activity/Vol]13 U/LNormal6-29 Quest DiagnosticsComment on above:Performed By: #### 38857 #### [facility] of [place] [address] Microbiology Supervisor: Alexandro Zambrano MDAST [Catalytic activity/Vol]18 U/AJzmrgd57-18 Quest DiagnosticsComment on above:Performed By: #### [id number] #### [facility] of [place] [address] Microbiology Supervisor: Alexandro Zambrano MDBilirubin [Mass/Vol]0.5 mg/dLNormal0.2-1.2 Quest DiagnosticsComment on above:Performed By: #### 32238 #### [facility] of [place] [address] Microbiology Supervisor: Alexandro Zambrano MDBUN/CREATININE RATIOSEE NOTE:Normal6-22Quest DiagnosticsComment on above:Result Comment: Not Reported: BUN and Creatinine are within reference range.Performed By: #### 53900 #### [facility] of [address], [address] [place] [address] Microbiology Supervisor: Alexandro GORDONalcium [Mass/Vol]9.6 mg/dLNormal8.6-10.4Quest DiagnosticsComment on above:Performed By: #### 53143 #### [facility] [place] [address] Microbiology Supervisor: Alexandro Zambrano MDChloride [Moles/Vol]109 mmol/CRmiqnq03-227 Quest DiagnosticsComment on above:Performed By: #### 06062 #### [facility] of [place] [address] Microbiology Supervisor: Alexandro Zambrano MDCO2 [Moles/Vol]26 mmol/GMykvef53-85Ywgas DiagnosticsComment on above:Performed By: #### 75311 #### [facility] [place] [address] Microbiology Supervisor: Alexandro GORDONreatinine [Mass/Vol]0.93 mg/dLNormal0.60-1.00 Quest DiagnosticsComment on above:Performed By: #### 45942 #### [facility] [place] [address] Microbiology Supervisor: Alexandro Zambrano MDGFR/1.73 sq M.predicted among non-blacks MDRD (S/P/Bld) [Vol rate/Area]64 mL/min/{1.73_m2}Normal> OR = 60[facility] Comment on above:Performed By: #### 53026 #### [facility] of [place] [address] Microbiology Supervisor: Alexandro Zambrano MDGlobulin (S) [Mass/Vol]2.5 g/dLNormal1.9-3.7 Quest DiagnosticsComment on above:Performed By: #### 07011 #### [facility] of [place] [address] Microbiology Supervisor: Alexandro Zambrano MDGlucose [Mass/Vol]87 mg/wYOnxyez41-31Vkzms DiagnosticsComment on above:Result Comment: Fasting reference intervalPerformed By: #### 77345 #### [facility] of [address], [address] [place] [address] Microbiology Supervisor: Alexandro Zambrano MDPotassium [Moles/Vol]4.4 mmol/LNormal3.5-5.3 Quest DiagnosticsComment on above:Performed By: #### 41735 #### [facility] [place] [address] Microbiology Supervisor: Alexandro Zambrano MDProtein [Mass/Vol]6.6 g/dLNormal6.1-8.1Quest DiagnosticsComment on above:Performed By: #### 13645 #### [facility] [place] [address] Microbiology Supervisor: Alexandro Zambrano MDSodium [Moles/Vol]141 mmol/VNvkhgm729-301Vlfvt DiagnosticsComment on above:Performed By: #### 75170 #### [facility] of [place] [address] Microbiology Supervisor: Alexandro Zambrano MDUrea nitrogen [Mass/Vol]21 mg/dLNormal7-25 Quest DiagnosticsComment on above:Performed By: #### 01587 #### [facility] of [place] [address] Microbiology Supervisor: Alexandro Zambrano MDEMG 2 Extremitieson 97-38-0412A9 radic b/l very mildNOMS HealthcareS[facility]PET[facility]LEY [facility] HealthcareNVC -10 Nerveson 38-97-3244Y9 radic b/l very mildNOWV HealthcareCox North TOMOSYNTHESIS SCREENING BIon 18-98-1109YgjEarly, [place] [address] Mammography Report Signed Patient: Dayna Valencia MR#: [id number] : 1950 Acct:[id number] Age/Sex: 72 / F ADM Date: 04/17/23 Loc: MAMMO Attending Dr: CHRISTIAN DAVIS Ordering Physician: CHRISTIAN DAVIS Results: Date of Service: 04/17/23 Follow Up: Procedure(s): MM tomosynthesis screening BI Accession Number(s): [id number] cc: CHRISTIAN DAVIS Patient Name: DAYNA VALENCIA MR#: [id number] : 1950 Exam Date: 04/17/2023 Ordering Doctor: DR CHRISTIAN DAVIS M.D. RADIOLOGY REPORT PROCEDURE: MM TOMOSYNTHESIS SCREENING BI COMPARISON: MG MAMM SCREEN 3D KARTIK CAD, 03/15/2021. MG MAMM SCREEN 3D KARTIK CAD, 03/25/2022. INDICATIONS: Screening mammogram Calculator Name NCI Breast Cancer Risk Assessment Tool 5 Year Breast Cancer Risk 1.70% Lifetime Breast Cancer Risk 4.00% Personal Breast Cancer No Personal Ovarian Cancer No Treatments None Family Cancers Mother with lymphoma cancer at age 85; Father with stomach cancer at age 68. LOCATION: [facility] BREAST COMPOSITION: Scattered areas fibroglandular density. [...] BIOPSIED. Dictated by: Inocente Alas MD on 04/17/2023 at 13:28 Approved by: Inocente Alas MD on 04/17/2023 at 13:30 Dictated By: Inocente Alas M.D. Signed By: 04/17/23 1332 DD/ 133 TD/TT: Shoe Turner:TBHRadiology, RadiologistMD - 04/17/2023 [place] [address] Mammography Report Signed Patient: Dayna Valencia MR#: [id number] : 1950 Acct:[id number] Age/Sex: 72 / F ADM Date: 04/17/23 Loc: MAMMO Attending Dr: CHRISTIAN DAVIS Ordering Physician: CHRISTIAN DAVIS Results: Date of Service: 04/17/23 Follow Up: Procedure(s): MM tomosynthesis screening BI Accession Number(s): [id number] cc: CHRISTIAN DAVIS Patient Name: DAYNA VALENCIA MR#: [id number] : 1950 Exam Date: 04/17/2023 Ordering Doctor: DR CHRISTIAN DAVIS M.D. RADIOLOGY REPORT PROCEDURE: MM TOMOSYNTHESIS SCREENING BI COMPARISON: MG MAMM SCREEN 3D KARTIK CAD, 03/15/2021. MG MAMM SCREEN 3D KARTIK CAD, 03/25/2022. INDICATIONS: Screening mammogram Calculator Name NCI Breast Cancer Risk Assessment Tool 5 Year Breast Cancer Risk 1.70% Lifetime Breast Cancer Risk 4.00% Personal Breast Cancer No Personal Ovarian Cancer No Treatments None Family Cancers Mother with lymphoma cancer at age 85; Father with stomach cancer at age 68. LOCATION: [facility] BREAST COMPOSITION: Scattered areas fibroglandular density. [...] BIOPSIED. Dictated by: Inocente Alas MD on 04/17/2023 at 13:28 Approved by: Inocente Alas MD on 04/17/2023 at 13:30 Dictated By: Inocente Alas M.D. Signed By: 04/17/23 1332 DD/ 1331 TD/TT: Shoe Turner: [facility] HealthcareRadiology Study observation (narrative)[facility] TOMOSYNTHESIS SCREENING BIOrdered By: Radiologist Radiology on 52-47-8959XOID Mister Spex Work Phone: cbc AUTO DIFFon 08-52-5813YQUO #0.0 103/ulNormal 0.0-0.1The Marion HospitalComment on above:Performed By: #### CBC #### [facility] [address] [place] [address] [address] Lisa RowanBasophils/100 WBC (Bld)0.4 %Normal0.2-2.0[facility] Comment on above:Performed By: #### CBC #### [facility] [address] [place] [address] Dr. Lisa Fernandez #0.2 103/ulNormal0.0-0.7The [facility] HospitalComment on above: Performed By: #### CBC #### [facility] [address] [place] [address] Dr. Lisa Elliottosinophils/100 WBC (Bld)3.2 %Normal0.9-7.0[facility] Comment on above:Performed By: #### CBC #### [facility] [address] [place] [address] Dr. Lisa Elliottrythrocyte distribution width (RBC) [Ratio]13.7 %Kbiyla54.0-15.0 The [facility] HospitalComment on above:Performed By: #### CBC #### [facility] [address] [place] [address] Dr. Lisa RowanHematocrit (Bld) [Volume fraction]40.0 %Wlmcrn19.0-48.0The [facility] HospitalComment on above:Performed By: #### CBC #### [facility] [address] [place] [address] Dr. Lisa RowanHemoglobin (Bld) [Mass/Vol]12.9 g/gHYecfxg12.0-16.0The [facility] HospitalComment on above:Performed By: #### CBC #### [facility] [address] [place] [address] Dr. Lisa Mccracken #0.02 10e3/ulNormal0.00-0.03The [facility] HospitalComment on above:Performed By: #### CBC #### [facility] [address] [place] [address] Dr. Lisa Mccracken %0.3 %Normal0.0-0.5The [facility] HospitalComment on above: Performed By: #### CBC #### [facility] [address] [place] [address] Dr. Lisa Zamarripa #1.8 103/ulNormal1.2-3.8The [facility] HospitalComment on above:Performed By: #### CBC #### [facility] [address] [place] [address] Dr. Lisa Woodsmphocytes/100 WBC (Bld)25.7 %Aefhsi92.5-60.0The [facility] HospitalComment on above:Performed By: #### CBC #### [facility] [address] [place] [address] Dr. Lisa Hardy DIFF REQNONormalThe Marion HospitalComment on above: Performed By: #### CBC #### [facility] [address] [place] [address] Dr. Lisa Lopez (RBC) [Entitic mass]32.7 suUpqeby09.7-34.0The [facility] HospitalComment on above:Performed By: #### CBC #### [facility] [address] [place] [address] Dr. Lisa Carpenter (RBC) [Mass/Vol]32.3 g/bDAwjifn05.9-35.2The [facility] HospitalComment on above:Performed By: #### CBC #### [facility] [address] [place] [address] Dr. Lisa Bhakta (RBC) [Entitic vol]101.3 fLCritically high81.0-99.0The [facility] HospitalComment on above:Performed By: #### CBC #### [facility] [address] [place] [address] Dr. Lisa Rose #0.6 103/ulNormal0.3-0.8The [facility] HospitalComment on above:Performed By: #### CBC #### [facility] [address] [place] [address] Dr. Lisa Gandhiocytes/100 WBC (Bld)9.2 %Normal1.7-12.0[facility] Comment on above:Performed By: #### CBC #### [facility] [address] [place] [address] Dr. Lisa Alfaro #4.2 103/ulNormal1.4-6.5The [facility] HospitalComment on above:Performed By: #### CBC #### [facility] [address] [place] [address] Dr. Lisa Summersutrophils/100 WBC (Bld)61.2 %Zigunu73.0-75.0The [facility] HospitalComment on above:Performed By: #### CBC #### [facility] [address] [place] [address] Dr. Lisa RowanPlatelet mean volume (Bld) [Entitic vol]9.8 fLNormal9.5-13.5The [facility] HospitalComment on above:Performed By: #### CBC #### [facility] [address] [place] [address] Dr. Lisa RowanPLT257 103/zvWgzklt519-991Dta [facility] HospitalComment on above: Performed By: #### CBC #### [facility] [address] [place] [address] Dr. Lisa RowanRBC3.95 106/ulCritically low4.20-5.40The [facility] HospitalComment on above:Performed By: #### CBC #### [facility] [address] [place] [address] Dr. Lisa RowanWBC6.8 103/ulNormal4.0-11.0N[facility] Children'S HospitalComment on above: Performed By: #### CBC #### [facility] [address] [place] [address] Dr. Lisa RowanLIPID PROFILEon 03-13-9873HFIG-HDL RATIO NORMSEE [facility] Medical CenterComment on above:Result Comment: 3.3 - 4.4 LOW RISK 4.4 - 7.1 AVERAGE RISK 7.1 - 11.0 MODERATE RISK >11.0 HIGH RISKPerformed By: #### LIPID, CMP #### [facility] [address] [place] [address] Dr. Lisa RowanCholesterol [Mass/Vol]170 mg/dLNormal<=200[facility] Comment on above:Performed By: #### LIPID, CMP #### [facility] [address] [place] [address] [address] Lisa Tranesterol in HDL [Mass/Vol]66 mg/dLCritically qmjj43-47PnuNationwide Children'S HospitalComment on above:Performed By: #### LIPID, CMP #### [facility] [address] [place] [address] [address] Lisa RowanCholesterol in LDL [Mass/Vol]92.8 mg/dLSelect Medical Specialty Hospital - Columbus SouthComment on above:Performed By: #### LIPID, CMP #### [facility] [address] [place] [address] [address] Lisa Tranestertana.total/Cholesterol in HDL [Mass ratio]2.6 {ratio} NormalNationwide Children'S HospitalComment on above:Performed By: #### LIPID, CMP #### [facility] [address] [place] [address] [address] Lisa Young NORMAL> or = 60 mg/dl - LOW CARDIOVASCULAR RISK <40 mg/dl - HIGH CARDIOVASCULAR RISKSelect Medical Specialty Hospital - Columbus SouthComment on above:Performed By: #### LIPID, CMP #### [facility] [address] [place] [address] [address] Lisa Cole CALC NORMALSEE BELOWSelect Medical Specialty Hospital - Columbus SouthComment on above:Result Comment: <100 mg/dl OPTIMAL 100 - 129 mg/dl NEAR OR ABOVE OPTIMAL 130 - 159 mg/dl BORDERLINE HIGH 160 - 189 mg/dl HIGH >190 mg/dl VERY HIGH Performed By: #### LIPID, CMP #### [facility] [address] [place] [address] [address] Lisa RowanTriglyceride [Mass/Vol]56 mg/dLNormal<=150[facility] Comment on above:Performed By: #### LIPID, CMP #### [facility] [address] [place] [address] [address] Lisa NessLDL CALC11.2 mg/dLNoSelect Medical Cleveland Clinic Rehabilitation Hospital, AvonComment on above: Performed By: #### LIPID, CMP #### [facility] [address] [place], [place] [address] Dr. Lisa RowanMG MAMM SCREEN 3D KARTIK CADon 72-48-7164WI MAMM SCREEN 3D KARTIK CAD Patient: DAYNA VALENCIA Exam Date: 03/25/2022 : 1950 Gender:F Ordering : DR CHRISTIAN DVAIS M.D. Admission #: [id number] Family : Order #: [id number] CLICK HERE TO VIEW EXAM RADIOLOGY REPORT PROCEDURE: MAMMOGRAM SCREENING 3D BILATERAL CAD COMPARISON: MG MAMM SCREEN KARTIK W CAD, 06/04/2017. MG MAMM SCREEN 3D KARTIK CAD, 03/15/2021. INDICATIONS: Screening mammography Calculator Name NCI Breast Cancer Risk Assessment Tool 5 Year Breast Cancer Risk 1.70% Lifetime Breast Cancer Risk 4.30% Personal Breast Cancer No Personal Ovarian Cancer No Treatments None Family Cancers Mother with lymphoma cancer at age 85; Father with stomach cancer at age 68. LOCATION: [facility] BREAST COMPOSITION: Scattered areas fibroglandular density. [...] by: Inocente Alas MD on 03/25/2022 at 12:25[facility] PROF 14(COMP METB)on 29-87-9174Qaueyxw [Mass/Vol]3.5 g/dLNormal3.4-5.0The [facility] HospitalComment on above:Performed By: #### LIPID, CMP #### [facility] [address] [place] [address] [address] Lisa RowanAlbumin/Globulin [Mass ratio]1.0 {ratio}NormalThe Marion HospitalComment on above:Performed By: #### LIPID, CMP #### [facility] [address] [place], [place] [address] Dr. Yilan ChangALP [Catalytic activity/Vol]96 U/BIqnycb41-822Tbz [facility] HospitalComment on above:Performed By: #### LIPID, CMP #### [facility] [address] [place] [address] Dr. Lisa CanasT [Catalytic activity/Vol]24 U/HPbzycd69-57Obd [facility] HospitalComment on above:Performed By: #### LIPID, CMP #### [facility] [address] [place] [address] Dr. Lisa Ambrizon gap [Moles/Vol]10.2 mmol/LNormalNationwide Children'S Hospital Comment on above:Performed By: #### LIPID, CMP #### [facility] [address] [place] [address] Dr. Lisa RowanAST [Catalytic activity/Vol]17 U/MGqnmgv82-62Dzb [facility] HospitalComment on above:Performed By: #### LIPID, CMP #### [facility] [address] [place] [address] Dr. Lisa RowanBilirubin [Mass/Vol]0.6 mg/dLNormal0.2-1.0[facility] Comment on above:Performed By: #### LIPID, CMP #### [facility] [address] [place] [address] Dr. Lisa RowanCalcium [Mass/Vol]9.3 mg/dLNormal8.5-10.1[facility] Comment on above:Performed By: #### LIPID, CMP #### [facility] [address] [place] [address] Dr. Lisa RowanChloride [Moles/Vol]106 mmol/GThxgah58-102ZszNationwide Children'S Hospital Comment on above:Performed By: #### LIPID, CMP #### [facility] [address] [place] [address] Dr. Lisa RowanCO2 [Moles/Vol]28.8 mmol/LXpntmv98.0-32.0[facility] Comment on above:Performed By: #### LIPID, CMP #### [facility] [address] [place] [address] Dr. Lisa RowanCreatinine [Mass/Vol]0.89 mg/dLNormal0.55-1.02The [facility] HospitalComment on above:Performed By: #### LIPID, CMP #### [facility] [address] [place] [address] Dr. Lisa ElliottGFR-AF MOROCCAN>60Normal>=60The [facility] HospitalComment on above:Performed By: #### LIPID, CMP #### [facility] [address] [place] [address] [address] Lisa ElliottGFR-NON AF MOROCCAN>60Normal>=60The [facility] HospitalComment on above:Performed By: #### LIPID, CMP #### [facility] [address] [place] [address] Dr. Lisa RowanGlobulin (S) [Mass/Vol]3.6 g/dLNormalThe [facility] HospitalComment on above:Performed By: #### LIPID, CMP #### [facility] Laboratory [address] [place] [address] Dr. Lisa RowanGlucose [Mass/Vol]87 mg/kADsunsi23-010GcuNationwide Children'S Hospital Comment on above:Performed By: #### LIPID, CMP #### [facility] [address] [place] [address] Dr. Lisa RowanPotassium [Moles/Vol]4.0 mmol/LNormal3.5-5.1[facility] Comment on above:Performed By: #### LIPID, CMP #### [facility] [address] [place] [address] Dr. Lisa RowanProtein [Mass/Vol]7.1 g/dLNormal6.4-8.2[facility] Comment on above:Performed By: #### LIPID, CMP #### [facility] [address] [place] [address] Dr. Lisa RowanSodium [Moles/Vol]141 mmol/GSscyvo574-238NbzNationwide Children'S Hospital Comment on above:Performed By: #### LIPID, CMP #### [facility] [address] [place] [address] Dr. Yilan ChangUrea nitrogen [Mass/Vol]19.0 mg/dLCritically high7.0-18.0[facility]'S HospitalComment on above:Performed By: #### LIPID, CMP #### [facility] [address] [place], [place] [address] Dr. Lisa RowanUrea nitrogen/Creatinine [Mass ratio]21.3 mg/mgNoSelect Medical [facility] Clinic [facility] Hospital, AvonComment on above:Performed By: #### LIPID, CMP #### [facility] [address] [place], [place] [address] Dr. Lisa RowanXR DEXA BONE DENSITYon 75-51-5288RD DEXA BONE DENSITYEXAMINATION: XR DEXA BONE DENSITY, 03/25/2022 11:01 AM [...] Electronically authenticated by: INOCENTE ALAS Date: 2022-03-25 12:18[facility] Vital Signs Date TimeVital SignValuePerforming XfujbcdpeYgumhcwb74-52-4202 13:00-0400Body gybvmqocchw26.39 [degF]Ashley Scottsdale DO Work Phone: [facility]08-28-2025 13:00-0400Diastolic blood wynavhxx34 mm[Hg]Ashley Moises DO Work Phone: [facility]08-28-2025 13:00-0400Heart rate71 /[facility] Promise of VicksburgTagito Moises DO Work Phone: [facility]08-28-2025 13:00-0400 Respiratory rate18 /minDarin Moises DO Work Phone: [facility]08-28-2025 13:00-2621WsY2% (BldA) [Mass fraction]99 %Ashley Scottsdale DO Work Phone: [facility] CenterFlix[facility] HospitalSmartThingsOsxrec05-19-0623 13:00-0400Systolic blood jjvauwzw442 mm[Hg]Ashley Moises DO Work Phone: [facility] CenterFlixlab [facility] HospitalSmartThingsQyygiw35-58-7270 11:46-0400Body xnnukr266.5 cmDarin Scottsdale DO Work Phone: [facility] CenterFlixlab [facility] HospitalSmartThingsYcclbg84-66-9046 11:46-0400Body mass index (BMI) [Ratio]34.07 kg/q4Ufbay Moises DO Work Phone: [facility] CenterFlixlab [facility] HospitalSmartThingsPuxwoz21-69-7669 11:46-0400Body .5 kgDarin Scottsdale DO Work Phone: [facility] CenterFlixlab [facility] HospitalSmartThingsUnkftu86-40-1280 15:30-0400Body xvipmcvvuky64.91 [degF]Ashley Scottsdale DO Work Phone: [facility] CenterFlixlab [facility] HospitalSmartThingsNbnfrv43-83-7578 15:30-0400Diastolic blood mm[Hg]Ashley Scottsdale DO Work Phone: [facility] CenterFl[facility] HospitalSmartThingsNmzfoo56-10-7919 15:30-0400Heart rate77 /minDarin Scottsdale DO Work Phone: [facility] CenterFlixlab [facility] HospitalSmartThingsJklzwh06-10-4816 15:30-0400 Respiratory rate18 /minDarin Moises DO Work Phone: [facility] CenterFlixlab [facility] HospitalSmartThingsUyiibz51-03-8329 15:30-8028DmO0% (BldA) [Mass fraction]97 %Ashley Scottsdale DO Work Phone: [facility] [employer] [facility] HospitalSmartThingsIaodqy25-74-9816 15:30-0400Systolic blood goitfvch996 mm[Hg]Ashley Scottsdale DO Work Phone: [facility] [employer] [facility] HospitalSmartThingsGyijqx63-57-1506 14:19-0400Body rqliay277.5 cmDarin Moises DO Work Phone: [facility] CenterFlixlab [facility] HospitalSmartThingsPqrmxd29-64-1244 14:19-0400Body mass index (BMI) [Ratio]34.09 kg/x8Ylluj Scottsdale DO Work Phone: [facility] CenterFlixlab [facility] HospitalSmartThingsEjknge76-12-0646 14:19-0400Body lqylkf35.55 kgDarin Moises DO Work Phone: [facility] CenterFlixlab [facility] HospitalSmartThingsYssehz77-41-7201 12:52-0400Body vidaogansrr59.5 [degF]Ashley Scottsdale DO Work Phone: [facility] CenterFlixlab [facility] HospitalSmartThingsPtoaco01-05-0091 12:52-0400Diastolic blood udygkkvt73 mm[Hg]Ashley Scottsdale DO Work Phone: [facility] CenterFlixlab [facility] HospitalSmartThingsDwuzic42-24-3561 12:52-0400Heart rate74 /minDarin Moises DO Work Phone: [facility] CenterFlixlab [facility] HospitalSmartThingsTkpdsf58-12-8075 12:52-0400 Respiratory rate16 /minDarin Moises DO Work Phone: [facility] CenterFlixlab [facility] HospitalSmartThingsGjcpkr60-11-1363 12:52-6987XmB0% (BldA) [Mass fraction]98 %Ashley Scottsdale DO Work Phone: [facility] CenterFlixlab [facility] HospitalSmartThingsAswjey03-12-9453 12:52-0400Systolic blood vobmcffx085 mm[Hg]Ashley Scottsdale DO Work Phone: [facility] CenterFlixlab [facility] HospitalSmartThingsDrwfzc31-60-2006 11:41-0400Body imowqt29.73 kgDarin Scottsdale DO Work Phone: [facility] CenterFlixlab [facility] HospitalSmartThingsSlggiu86-15-2492 14:49-0400Body vzjububpyas88.1 [degF]Ashley Moises DO Work Phone: [facility] [employer]06-26-2025 14:49-0400Diastolic blood wokcorvt74 mm[Hg]Ashley Scottsdale DO Work Phone: [facility] CenterFlixlab [facility] HospitalBlueMessaging Hvneab41-74-7574 14:49-0400Heart rate77 /minDarin Moises DO Work Phone: [facility] CenterFlixlab [facility] CenterAabkvz73-67-4418 14:49-0400 Respiratory rate16 /minDarin Moises DO Work Phone: [facility] CenterFlixlab [facility] HospitalBlueMessaging Qorxws09-87-0323 14:49-7817ChM3% (BldA) [Mass fraction]98 %Ashley Scottsdale DO Work Phone: [facility] CenterFlixlab [facility] HospitalBlueMessaging Hszpic45-09-9491 14:49-0400Systolic blood zwuiwipw334 mm[Hg]Ashley Scottsdale DO Work Phone: [facility] CenterFlixlab [facility] HospitalBlueMessaging Vxpyky00-50-4584 09:49-0400Diastolic blood mm[Hg]Christopher Michael DO Work Phone: [facility] HospitalOmfkgbugle47-83-5637 09:49-0400Heart haqd977 /min Christopher Michael DO Work Phone: [facility] HospitalOdwtquhffu78-90-2583 09:49-7629YzS0% (BldA) [Mass fraction]98 %Christopher Michael DO Work Phone: [facility] HospitalHevduzjrkl55-27-2863 09:49-0400Systolic blood eltsltvf793 mm[Hg]Christmyrandaer Michael DO Work Phone: [facility] HospitalCwmiikldnl60-99-5107 14:37-0500Body mass index (BMI) [Ratio]35.8 kg/n5BsahiAutumn Witt LAW RESEARCHER Work Phone: NOBarton [facility] HospitalQeghcnmhdf81-61-6551 14:37-0500Body afcvgc12.64 kgAutumn Witt LAW RESEARCHER Work Phone: NOB[facility] HospitalWkbzpsmytf10-95-5091 14:37-0500Diastolic blood iqliqkyb54 mm[Hg]Autumn Gera LAW RESEARCHER Work Phone: NOB[facility] HospitalSasblqwghr43-53-9932 14:37-0500Heart rate79 /min Autumn Witt LAW RESEARCHER Work Phone: noB[facility] HospitalXjjxhffttb06-78-3057 14:37-5628WtM6% (BldA) [Mass fraction]99 %Autumn Witt LAW RESEARCHER Work Phone: noB[facility] HospitalRjvdcfazxr63-83-3055 14:37-0500Systolic blood ibxitgdb309 mm[Hg]Autumn Witt LAW RESEARCHER Work Phone: [facility] HospitalTxdbhvkbrb89-01-4970 15:47-0500Body mass index (BMI) [Ratio]36.17 kg/f2WjbstAutumn Witt LAW RESEARCHER Work Phone: [facility] HospitalWpndrwalym56-11-5927 15:47-0500Body artjbv88.54 kgAutumn Witt LAW RESEARCHER Work Phone: [facility] HospitalStrqtthrhe33-87-0790 15:47-0500Diastolic blood halorexz66 mm[Hg]Autumn Witt LAW RESEARCHER Work Phone: [facility] HospitalDoosvtzvmb78-11-3400 15:47-0500Systolic blood mm[Hg]Autumn Witt LAW RESEARCHER Work Phone: noB[facility] HospitalYtvnwqlyyg29-37-9982 09:36-0500Diastolic blood acxbqkjo59 mm[Hg]Christlorenzo Rodriguez DO Work Phone: noB[facility] HospitalWhncdaxldf11-73-7711 09:36-0500Heart rate97 /min Christopher Michael DO Work Phone: [facility] HospitalRrluhpseih02-17-0452 09:36-4025MyL0% (BldA) [Mass fraction]92 %Christmyrandaer Michael DO Work Phone: noB[facility] HospitalSsrythtsds18-22-9592 09:36-0500Systolic blood mm[Hg]Christopher Michael DO Work Phone: noB[facility] HospitalCoiisfnkda73-39-4685 10:08-0500Body krrsuk971.6 cmChristian Davis MD Work Phone: NOB[facility] Memorial HospitalMenwvqdclr39-91-9465 10:08-0500Body mass index (BMI) [Ratio]35.42 kg/u0Yiksiqshivam Davis MD Work Phone: [facility] HospitalQjagbloqim15-62-8447 10:08-0500Body umakah67.73 kgDashivam Davis MD Work Phone: [facility] HospitalOswennullt66-64-5191 10:08-0500Diastolic blood xmabduvv90 mm[Hg]Christian Davis MD Work Phone: NOB[facility] HospitalQljryisdvf37-80-8397 10:08-0500Heart rate83 /min Christian Davis MD Work Phone: [facility] HospitalLaulgkcong11-19-1964 10:08-0271YdO5% (BldA) [Mass fraction]97 %Christian Davis MD Work Phone: [facility] HospitalCupmrgcsin31-90-0205 10:08-0500Systolic blood etmgmfdc721 mm[Hg]Christian Davis MD Work Phone: [facility] HospitalMaefhpmbsw18-94-7843 09:40-0500Body mass index (BMI) [Ratio]35.5 kg/q8Covdbbgmhxg Michael DO Work Phone: [facility] HospitalXizddgfbye11-27-6323 09:40-0500Body kfyyuu10.91 kgChristopher Michael DO Work Phone: noB[facility] HospitalNaxtbglqzh18-48-3818 09:40-0500Diastolic blood qzdleqtr93 mm[Hg]Christopher Michael DO Work Phone: noB[facility] HospitalWzjowfrwwf54-35-8884 09:40-0500Heart rate94 /min Christopher Michael DO Work Phone: NOB[facility] HospitalMsxylyzdmk18-17-5303 09:40-6006BzV3% (BldA) [Mass fraction]94 %Christopher Michael DO Work Phone: NOB[facility] HospitalAtbvteyhfg42-69-8631 09:40-0500Systolic blood mm[Hg]Mikopher Michael DO Work Phone: [facility] HospitalNzuffokkwp21-48-6008 10:19-0400Body flrfbe403.6 cmChristian Davis MD Work Phone: [facility] HospitalYkqqtoktkb88-82-1766 10:19-0400Body mass index (BMI) [Ratio]35.05 kg/p6StskqkChristian Davis MD Work Phone: [facility] HospitalYzxivraeru66-77-8936 10:19-0400Body .82 kgChristian Davis MD Work Phone: [facility] HospitalTmihtxeijl13-86-8327 10:19-0400Diastolic blood uauagvud39 mm[Hg]Christian Davis MD Work Phone: 1(112)268-[address] [place], [place] [address]Sohjtkjgdu73-48-6550 10:19-0400Heart rate92 /min Christian Davis MD Work Phone: 1(574)[facility]-[address] [place], [place] [address]Aojeqdrotl78-98-0095 10:19-7662HpF6% (BldA) [Mass fraction]97 %Christian Davis MD Work Phone: 1(719)027-[address] [place], [place] [address]Ygqqirrlfc08-78-6837 10:19-0400Systolic blood tbfpxyvt916 mm[Hg]Christian Davis MD Work Phone: 1(985)[facility]-[address] [place], [place] [address]Zvgddajxyg91-53-0747 11:05-0400Body vsvfii300.6 cmChristian Davis MD Work Phone: 1(461)[facility]-[address] [place], [place] [address]Nofjxdietf97-78-6989 11:05-0400Body mass index (BMI) [Ratio]35.23 kg/x5UwweckChristian Davis MD Work Phone: 1(671)218-[address] [place], [place] [address]Knsylbltoq71-33-5897 11:05-0400Body hcmogx21.28 kgChristian Davis MD Work Phone: 1(804)[facility] [place], [place] [address]Fmxmpxpwzp87-61-6895 11:05-0400Diastolic blood taqzdgih79 mm[Hg]Christian Davis MD Work Phone: 1(492)858-[address] [place], [place] [address]Mjlhgfoegx77-54-8798 11:05-0400Heart rate94 /min Christian Davis MD Work Phone: 1(394)[facility]-[address] [place], [place] [address]Txebfghare77-30-9924 11:05-3513GqP5% (BldA) [Mass fraction]97 %Christian Davis MD Work Phone: 1(500)[facility]-[address] [place], [place] [address]Sslddpivbo19-30-3099 11:05-0400Systolic blood emiwfydw237 mm[Hg]Christian Davis MD Work Phone: [facility] Encounters Encounter DateEncounter TypeCare ProviderFacilityStart: 04-10-2025 End: 32-48-9296oruwjyaxkvOFINVX B BERRYNot AvailableStart: 03-06-2025 End: 31-83-6731Vjiwhfbez Result EncounterGeneric External Data ProviderNOMS External Department UnsolicitedStart: 03-06-2025 End: 27-91-8636Xqysenfcg Result EncounterGeneric External Data ProviderNOMS External Department UnsolicitedStart: 01-26-2025 End: 20-97-7445Tmjgylzrr Result EncounterGeneric External Data ProviderNOMS External Department UnsolicitedStart: 01-26-2025 End: 91-55-5079Vfpopkzlf Result EncounterGeneric External Data ProviderNOMS External Department UnsolicitedStart: 01-26-2025 End: 16-66-0894ybzapqxsctQTTUD SCRIBOhioHealth [facility] HospitalStart: 01-26-2025 End: 23-10-9115Fkhpqpqshy hospital visit by physicianDarin Moises DO Work Phone: [facility]z ORStart: 01-05-2025 End: 46-49-1737Rcukalitg Result EncounterGeneric External Data ProviderNOMS External Department UnsolicitedStart: 01-05-2025 End: 28-59-4672Rmqknqyqd Result EncounterGeneric External Data ProviderNOMS External Department UnsolicitedStart: 01-05-2025 End: 90-19-0231otsapgzrsoYUNRV SCRIBNEROhiohealth [facility]heastern [facility] Center HospitalStart: 01-05-2025 End: 58-97-4148Vetwqqnbqx hospital visit by physicianDarin Moises DO Work Phone: [facility] ORStart: 12-08-2024 End: 01-19-0741Yavqysjao Result EncounterGeneric External Data ProviderNOMS External Department UnsolicitedStart: 12-08-2024 End: 34-16-0087Lmxjlovdy Result EncounterGeneric External Data ProviderNOMS External Department UnsolicitedStart: 12-08-2024 End: 74-49-3248lipuvpbmpsADEYA SCRIBDignity Health Arizona General Hospitaljavy Destin HospitalStart: 12-08-2024 End: 25-04-7272Blvetpnyhl hospital visit by physicianAshley Navasibner DO Work Phone: [facility] ORStart: 11-24-2024 End: 98-32-1490Etfrsjwgf Result EncounterGeneric External Data ProviderNOMS External Department UnsolicitedStart: 11-24-2024 End: 67-74-6331Emzmkroky Result EncounterGeneric External Data ProviderNOMS External Department UnsolicitedStart: 11-24-2024 End: 20-13-7589bosxwodmeeMOSGJ SCRWilson Memorial Hospital HospitalStart: 11-24-2024 End: 54-25-7443Aztkhiiasa hospital visit by physicianAshley De Leon DO Work Phone: [facility] ORStart: 08-30-2024 End: 93-20-9423Lwyebp flowsheetChristopher Michael DO Work Phone: ana BELLEVUEStart: 08-30-2024 End: 97-37-9794Wvgjjd flowsheetChristopher Michael DO Work Phone: ana BELLEVUEStart: 08-30-2024 End: 09-45-7774Eiykqag encounter procedureChristopher Michael DO Work Phone: ana BELLEVUEComment on above:Lumbar radiculopathy (Primary Dx); Pain in both lower extremities; Lumbar spondylosis; Lumbosacral radiculopathyStart: 08-30-2024 End: 60-16-9970xbxszxhqqgBYGMYWHULWH HASSETTNot AvailableStart: 07-07-2024 End: 79-13-7131Krccwu outpatient visit 15 minutesSajuli Witt LAW RESEARCHER Work Phone: aNA BELLEVUEComment on above:Pain in both lower extremities (Primary Dx); Weakness of both lower extremities; Lumbar spondylosis; Lumbosacral radiculopathyStart: 07-07-2024 End: 25-11-9320vbrmbsqemdFHNKA CARROLLNot AvailableStart: 07-07-2024 End: 16-69-0223Xelzgv flowsheetSmikey Perezoll LAW RESEARCHER Work Phone: aNA BELLEVUEStart: 07-07-2024 End: 08-98-2829Pwydsj flowsheetSmikey Perezoll LAW RESEARCHER Work Phone: ana BELLEVUEStart: 06-24-2024 End: 93-36-3005Fhxnmmlhl Result EncounterSmikey Witt NPNOMS External Department UnsolicitedStart: 06-24-2024 End: 94-29-4186Txvixwvws Result EncounterSmikey Witt NPNOMS External Department UnsolicitedStart: 06-20-2024 End: 39-60-2125Hlsqmgjih Result EncounterSmikey Witt NPNOMS External Department UnsolicitedStart: 06-20-2024 End: 46-21-1604Siuajasoh Result EncounterSmikey Witt NPNOMS External Department UnsolicitedStart: 06-14-2024 End: 89-80-1668Moaubmkqu encounterOlivia Deemer MAEDEN BELLEVUEComment on above: Lower extremity ultrasoundStart: 06-09-2024 End: 33-07-0887Rdmradjvu Result EncounterSmikey Witt LAW RESEARCHER Work Phone: noMS External Department UnsolicitedStart: 06-09-2024 End: 14-23-6463Gdodslbqv Result EncounterSmikey Witt LAW RESEARCHER Work Phone: noMS External Department UnsolicitedStart: 06-07-2024 End: 03-17-2438Gaorul outpatient visit 25 minutesSajuli Witt LAW RESEARCHER Work Phone: aNA BELLEVUEComment on above:Pain in both lower extremities (Primary Dx); Weakness of both lower extremities; Lumbar spondylosis; Lumbar radiculopathyStart: 06-07-2024 End: 88-70-8911yqonzguwpmRHPLB CARROLLNot AvailableStart: 06-07-2024 End: 75-58-0779Klnxiw flowsHarvey Perezoll LAW RESEARCHER Work Phone: ana BELLEVUEStart: 06-07-2024 End: 75-02-1472Lfpqkp flowsHarvey Witt LAW RESEARCHER Work Phone: ana BELLEVUEStart: 05-10-2024 End: 32-24-3812Pvnjlpz encounter procedureChristopher Rodriguez DO Work Phone: NONB [address] STATE ROUTEComment on above:Lumbar radiculopathy (Primary Dx); Lumbosacral radiculopathyStart: 05-10-2024 End: 18-82-2800pxasvkjcpbBZAXDDSNBXG ALBERTETTNot AvailableStart: 05-02-2024 End: 65-13-4794toptbqhfrbNlotaxoswcv M AlbertettFacility:[facility] Hospitaltart: 04-20-2024 End: 77-99-9756Fvionhjpm Result EncounterChristian Davis MD Work Phone: [facility] External Department UnsolicitedStart: 04-20-2024 End: 78-22-1838Fleskhiwc Result EncounterChristian Davis MD Work Phone: [facility] External Department UnsolicitedStart: 04-08-2024 End: 37-39-9033Gtrjdp flowsSara Davis MD Work Phone: [facility] CI FMStart: 04-08-2024 End: 50-05-3368Lguaqa Dinah Davis MD Work Phone: [facility] CI FMStart: 04-08-2024 End: 19-43-7645Avblb of hemosiderin, quantChristian Davis MD Work Phone: [facility] Work Phone: Start: 04-08-2024 End: 79-49-7921Dfsnjgv encounter procedureChristian Davis MD Work Phone: [facility] CI FMComment on above:Routine general medical examination at health care facility (Primary Dx); ACP (advance care planning); Breast screening; Estrogen deficiency; Morbid (severe) obesity due to excess calories (CMS/HCC); Unilateral primary osteoarthritis, right knee; Body mass index (BMI) 35.0-35.9, adultStart: 04-06-2024 End: 94-11-6489Mtfmnu flowsheetChristopher Michael DO Work Phone: [facility] [address] STATE ROUTEStart: 04-06-2024 End: 98-44-6906Crkncr flowsheetChristopher Michael DO Work Phone: [facility] [address] STATE ROUTEStart: 04-06-2024 End: 47-19-9892Gsvsrm outpatient new 45 minutesChristopher Michael DO Work Phone: [facility] AM[address] STATE ROUTEComment on above:Weakness of both lower extremities (Primary Dx); Lumbosacral radiculopathyStart: 03-18-2024 End: 97-25-7592Behbqr Dinah Davis MD Work Phone: [facility] CI FMStart: 03-18-2024 End: 17-82-7506Ijojno Dinah Davis MD Work Phone: [facility] CI FMStart: 03-18-2024 End: 33-03-5919Faksdu outpatient visit 15 minutesChristian Davis MD Work Phone: [facility] CI FMComment on above:Neurogenic claudication (Primary Dx)Start: 03-10-2024 End: 50-51-3439Zgbzozk encounter procedureChristopher Michael DO Work Phone: [facility] [address] STATE ROUTEComment on above:Lumbosacral radiculopathy (Primary Dx); Neurogenic claudicationStart: 03-03-2024 End: 11-80-0185Kfflqg Dinah Davis MD Work Phone: [facility] CI FMStart: 03-03-2024 End: 41-38-8765Gtlkms Dinah Davis MD Work Phone: [facility] CI FMStart: 03-03-2024 End: 36-68-3656Twiphn outpatient visit 15 minutesChristian Davis MD Work Phone: NOPD CI FMComment on above:Neurogenic claudication (Primary Dx)Start: 04-17-2023 End: 41-66-6890Vhemqqdym Result EncounterDashivam Davis MD Work Phone: n[facility] External Department UnsolicitedStart: 04-17-2023 End: 84-89-2591Dbqoexhlz Result EncounterDashivam Davis MD Work Phone: [facility] External Department UnsolicitedStart: 03-30-2022 Encounter for general adult medical examination without abnormal findingsDR CHRISTIAN DAVISTrinity Health System [facility] HospitalStart: 03-25-2022 End: 33-62-6184smknzheqzdCK DANIEL BERRYFacility:W8Ixcrq: 03-25-2022 End: 68-19-8550Djtawactd for general adult medical examination without abnormal findingsDR CHRISTIAN DAVISFacility:E8Yapja: 49-66-6944qporgomwufSR DANIEL BERRY Facility:H1 Procedures DateProcedureProcedure DetailPerforming ClinicianStart: 89-63-6308GH FOOT RT MIN 3VGeneric External Data ProviderStart: 82-71-4163RCBMOT FOR SURGICAL PROCEDURES Generic External Data ProviderStart: 39-76-9699FGEPCW FOR SURGICAL PROCEDURES Generic External Data ProviderStart: 68-38-9195Vhzcwifoavu during operationDarin Scottsdale DO Work Phone: Start: 14-80-2035TIYXPH FOR SURGICAL PROCEDURESGeneric External Data ProviderStart: 86-65-4041FZDOLA FOR SURGICAL PROCEDURESGeneric External Data ProviderStart: 76-39-2609Dayglmflrsv during operationDarin Scottsdale DO Work Phone: Start: 91-12-9026TBEZW BLOCKSmikey Witt LAW RESEARCHER Work Phone: Start: 87-43-9795Amfzx-brachial indexSajuli Witt LAW RESEARCHER Start: 02-23-6228Sfs-scan lxtr art/artl bpgs compl bi studySajuli Witt LAW RESEARCHER Start: 32-76-5859UVG MYOGLOBINSmikey Witt LAW RESEARCHER Work Phone: Start: 93-01-3719PLR José Miguel Witt LAW RESEARCHER Work Phone: Start: 71-35-9671AF TOMOSYNTHESIS SCREENING Alonzo Davis MD Work Phone: Start: 70-55-2274VB DEXA AXIAL SKELETONChristian Davis MD Work Phone: Start: 03-10-2024 End: 48-15-3400Mknlux emg ea extremty w/paraspinl area Gavi Davis MD Work Phone: Start: 58-25-7205TJ TOMOSYNTHESIS SCREENING Alonzo Davis MD Work Phone: Start: 82-22-3414CzuoarwickjHakbpd Berry MD Work Phone: Plan of Treatment DateCare ActivityDetailAuthorStart: 04-10-2025 End: 21-97-8217Gltnjeh encounter ifhliwqvn85/10/2025 1:30 PM EST Office Visit [facility] [address] [facility] [address] [place] [id number] Christian Davis MD [address] [facility] [address] [place] [address] [facility]nceStart: 04-08-2025 Medicare Annual Wellness (AWV)Medicare Annual Wellness (AWV)[facility] Start: 35-60-3276Yjjnluaev for malignant neoplasm of colonNOMS HealthcareStart: 02-20-2025 End: 14-28-1892Ojzwvqh encounter joimuosay73/22/2025 10:40 AM EDT Office Visit [facility] [address] [place] [address] Jessica Gonsales, CHIEF DEPUTY SHERIFF - NET DEVELOPER SOFTWARE ENGINEER [address] [place] [address] [facility] Physical Medicine & RehabilitationComment on above:RFA fu Start: 19-71-2951Fwhpnaqdh vaccinationInfluenza Vaccine (#1)[facility] Healthcare Start: 01-26-2025 End: 72-87-6548Unetjizsq to same day surgery bzvcwb5701/26/2025 12:33 PM EDT - 01/26/2025 12:58 PM EDT Surgery [facility] [address] [place] [address] ScottsdaleAshley smith, [address] [place], [place] [id number] LEFT LUMBAR L3, L4, L5 RADIO FREQUENCY ABLATIONMWHZ OR Comment on above:LEFT LUMBAR L3, L4, L5 RADIO FREQUENCY ABLATIONStart: 01-26-2025 End: 44-45-7720Wmql nrolytc agnt parverteb fct sngl lmbr/[facility] HospitalStart: 49-57-8786Zzibrzotgs hospital visit by physician 01/26/2025 12:33 PM EDT Hospital Encounter [facility] [address] [place] [id number] Hxkvciaz, Darin, [address] [place] [address] [facility] ORStart: 01-17-2025 End: 74-17-9590Pockmxy encounter xlfneczmi92/19/2025 10:00 AM EDT Office Visit [place] [place] [address] [place] [phone] Kunal Rodriguez DO [address] [place], [place] [id number] EDEN PUYALLUPEVUEStart: 01-09-2025 End: 83-07-1904Dzegfzh encounter xbqhewaed45/11/2025 1:30 PM EDT Office Visit [facility] Physical Medicine & Rehabilitation [address] [address] Jessica Gonsales, CHIEF DEPUTY SHERIFF - NET DEVELOPER SOFTWARE ENGINEER [address] [place], [place] [id number] MBB f/u [facility] Physical Medicine & RehabilitationComment on above:MBB f/u Start: 01-05-2025 End: 54-05-8714Dgib nrolytc agnt parverteb fct sngl lmbr/sacralLUMBAR RADIO FREQUENCY ABLATION Lumbosacral spondylosis without myelopathy 01/05/2025 3:11 PM EDHolzer [facility] – [facility] HospitalStart: 80-47-4337Vcjgnifxq vaccinationFlu vaccine (#1)Bon Fela [facility] CenterStart: 12-22-2024 End: 24-94-4027Yejtkru encounter rgjhqahfh62/24/2025 9:00 AM EDT Office Visit [facility] Physical Medicine & Rehabilitation [address] [place], [place] [phone] Ashley De Leon [address] [place] [phone] SHASHANK f/[facility] Physical Medicine & RehabilitationComment on above:MBB f/uStart: 12-12-2024 End: 64-46-4197Hsxnthz encounter onkrkuzas22/14/2025 10:40 AM EDT Office Visit EDEN AMY [address] [place], [place] [phone] Autumn Witt NP [address] [place], [place] [phone] EDEN STACYtart: 12-08-2024 End: 09-90-1336Kfxmwyrnu to same day surgery spdljf1112/08/2024 12:00 PM EDT - 12/08/2024 12:08 PM EDT Surgery [facility] OR [address] [place] [id number] Ashley De Leon, DO [address] [place], [place] [phone] BILATERAL LUMBAR L3, L4, L5 MEDIAL BRANCH BLOCKMWHZ OR Comment on above:BILATERAL LUMBAR L3, L4, L5 MEDIAL BRANCH BLOCKStart: 12-08-2024 End: 39-97-6769Vlc dx/ther agt pvrt facet jt lmbr/sac 1 [facility] HospitalStart: 94-60-1914Qgzywmpqos hospital visit by physician 12/08/2024 12:00 PM EDT Hospital Encounter [facility] [place] [address] [address] Wczwzoaz, DarinDO [address] [place], [place] [phone] [facility] ORStart: 11-24-2024 End: 51-58-7837Vkj dx/ther agt pvrt facet jt lmbr/sac 1 levelNERVE BLOCK BILATERAL Lumbosacral spondylosis without myelopathy 11/24/2024 2:37 PM EDHolzer Medical Center – [facility] HospitalStart: 09-28-3363Sczqou Wellness Visit (Medicare)Annual Wellness Visit (Medicare)Brian Chahal [facility] CenterStart: 08-30-2024 End: 03-17-0998Qjkis BlockNerve Block Procedures Routine Pain in both lower extremities Lumbar spondylosis Lumbar radiculopathy Expected: 08/30/2024 (Approximate), Expires: 06/07/2025NOWV HealthcareComment on above:Expected: 08/30/2024 (Approximate), Expires: 06/07/2025Start: 08-30-2024 End: 28-92-5232Nzgdesl encounter procedureNOASHTABULA COUNTY [facility]ICAL [facility] ROUTEComment on above:ArrivedStart: 08-22-2024 End: 42-94-9397Mqldalv encounter procedureNOMS AMY STATE ROUTEStart: 07-07-2024 End: 53-39-4170Mjsgwfc encounter procedureANA BELLEVUEComment on above:Arrived Start: 06-16-2024 End: 07-12-8061IA.doppler Lower extremity artery - bilateralVascular US lower extremity arterial duplex bilateral with ELZA Vascular Ultrasound Routine Vascularclaudication (CMS/HCC) Pain in both lower extremities Weakness of both lower extremities Expected: 06/16/2024 (Approximate), Expires: 06/16/2026[facility] Work Phone: comment on above:Expected: 06/16/2024 (Approximate), Expires: 06/16/2026Start: 06-07-2024 End: 19-65-7096Tdsogcw encounter vbfefchrw33/07/2025 4:00 PM EST Office Visit EDEN REYES [address] [place] [phone] Autumn Witt NP [address] [place] [phone] ArrivedEDEN FRIENDSVILLEComment on above:ArrivedStart: 06-07-2024 End: 50-64-9347OnpzjoqcOokluuff Lab Routine Weakness of both lower extremities Expected: 06/07/2024 (Approximate), Expires: 06/07/2025NOMS HealthcareComment on above:Expected: 06/07/2024 (Approximate), Expires: 06/07/2025Start: 06-07-2024 End: 15-21-8624Hceyifwr kinase [Enzymatic activity/volume] in Serum or PlasmaCK Lab Routine Weakness of both lower extremities Expected: 06/07/2024 (Approximate), Expires: 06/07/2025[facility] Work Phone: comment on above:Expected: 06/07/2024 (Approximate), Expires: 06/07/2025Start: 06-07-2024 End: 65-19-4453Fiywiqwzr, serumMyoglobin, serum Lab Routine Weakness of both lower extremities Expected: 06/07/2024 (Approximate),Expires: 06/07/2025NOMS HealthcareComment on above:Expected: 06/07/2024 (Approximate), Expires: 06/07/2025Start: 06-07-2024 End: 75-32-3223MR.doppler Lower extremity artery - bilateralVascular US lower extremity arterial duplex bilateral with ELZA Vascular Ultrasound Routine Pain in both lower extremities Weakness of both lower extremities Expected: 06/07/2024 (Approximate), Expires: 06/07/2026NOMS HealthcareComment on above:Expected: 06/07/2024 (Approximate), Expires: 06/07/2026Start: 05-10-2024 End: 49-18-1044Dfgqeoc encounter vrzuhilri15/10/2024 10:00 AM EST Office Visit MIREILLE REYES [address] [place] [phone] Kunal Rodriguez DO [address] [place] [address] [facility] ROUTEStart: 04-08-2024 End: 80-32-8233Yituzuofihawv metabolic 2000 panel - Serum or PlasmaComprehensive metabolic panel Lab Routine Routine general medical examination at health care facility Morbid (severe) obesity due to excess calories (CMS/HCC) Unilateral primary osteoarthritis, rightknee Expected: 04/08/2024 (Approximate), Expires: 04/08/2025NOMS HealthcareComment on above:Expected: 04/08/2024 (Approximate), Expires: 04/08/2025Start: 04-08-2024 End: 88-84-7175DRK Skeletal system Views for bone densityDEXA bone density Imaging Routine Estrogen deficiency Expected: 04/08/2024 (Approximate), Expires: 04/08/2025[facility] Work Phone: Comment on above:Expected: 04/08/2024 (Approximate), Expires: 04/08/2025Start: 04-08-2024 End: 56-99-0003FR Breast - bilateral ScreeningBilateral screening mammogram Imaging Routine Breast screening Expected: 04/08/2024 (Approximate), Expires: 06/08/2025NOMS HealthcareComment on above:Expected: 04/08/2024 (Approximate), Expires: 06/08/2025Start: 04-08-2024 End: 97-88-9586GIR W/REFLEX TO FT4TSH W/REFLEX TO FT4 Lab Routine Routine general medical examination at health care facility Morbid (severe) obesity due to excess calories (CMS/HCC) Unilateral primary osteoarthritis, right knee Expec melody: 04/08/2024 (Approximate), Expires: 04/08/2025NOMS HealthcareComment on above:Expected: 04/08/2024 (Approximate), Expires: 04/08/2025Start: 04-08-2024 End: 64-26-6648Ptxwqza encounter procedureNOMS CI FMComment on above:Arrived Start: 11-07-2024Medicare Annual Wellness (AWV)Medicare Annual Wellness (AWV) [facility] HealthcareStart: 04-06-2024 End: 16-70-7756UE Lumbar spine WO contrastMR lumbar spine wo contrast Imaging Routine Weakness of both lower extremities Expected: 04/06/2024, Expires: 04/06/2025[facility] Work Phone: comment on above:Expected: 04/06/2024, Expires: 04/06/2025Start: 04-06-2024 End: 41-52-5524Qhoee BlockNerve Block Procedures Routine Lumbosacral radiculopathy Expected: 04/06/2024 (Approximate), Expires: 04/06/2025NOMS HealthcareComment on above:Expected: 04/06/2024 (Approximate), Expires: 04/06/2025Start: 04-06-2024 End: 53-50-0608Qqzwktd encounter paiqeprii47/06/2024 10:00 AM EST Office Visit N[facility]S [facility] [address] [address] [place] [phone] Kunal Rodriguez DO [address] [place] [address] Neurogenic claudicationNOMS [facility] ROUTEComment on above:Neurogenic claudicationStart: 03-18-2024 End: 53-20-9980Wphyeke encounter procedureNOMS CI FMComment on above:Arrived Start: 03-03-2024 End: 99-89-7430CHK 2 ExtremitiesEMG 2 Extremities Neurology Routine Neurogenic claudication Expected: 03/03/2024 (Approximate), Expires: 03/03/2025[facility] Work Phone: Comment on above:Expected: 03/03/2024 (Approximate), Expires: 03/03/2025Start: 03-03-2024 End: 36-06-3174Nnsfdxa encounter nalqwbdce72/03/2024 11:30 AM EDT Office Visit [facility] CI FM [address] [place] [address] Christian Davis MD 112 [facility] [address] [place] [address] [facility] FMComment on above:ArrivedStart: 01-31-2024 COVID-19 Vaccine ( season)COVID-19 Vaccine ( season)[facility] CenterStart: 50-85-5962Bmxwdenrl vaccinationInfluenza Vaccine (#1) [facility] HealthcareStart: 80-12-6403Rhoqykdijlw Syncytial Virus (RSV) or age 60 yrs+ (1 - 1-dose 75+ series)Respiratory Syncytial Virus (RSV) or age 60 yrs+ (1 - 1-dose 75+ series)[facility] CenterStart: 07-20-2022 Screening for malignant neoplasm of colonColonoscopyNOMS HealthcareStart: 92-66-8367Qkpkcwxj vaccine (2 of 3)Shingles vaccine (2 of 3)[facility] CenterStart: 22-96-5819TMiF/Tdap/Td vaccine (1 - Tdap)DTaP/Tdap/Td vaccine (1 - Tdap)[facility] CenterStart: 06-21-2370Gtqchxvwv C screeningHepatitis C screenBon [facility] CenterStart: 12-10-2835Zrgrcmlbpz ScreenDepression ScreenBon [facility]: 17-06-9050Njiaglxzx for malignant neoplasm of colonSc[facility]land County [facility] End: 41-41-2122Ahphqmxb-- during surgeryFLUORO FOR SURGICAL PROCEDURES Imaging Routine Once for 1 Occurrences starting 12/08/2024 until 12/08/2024 [employer] [facility] Phone: Comment on above:Once for 1 Occurrences starting 12/08/2024 until 12/08/2024 End: 95-04-6467Jhrbzygq-- during surgeryFLUORO FOR SURGICAL PROCEDURES Imaging Routine Once for 1 Occurrences starting 01/26/2025 until 01/26/2025on [employer] Phone: Comment on above:Once for 1 Occurrences starting 01/26/2025 until 01/26/2025 Immunizations Immunization DateImmunizationNotesCare EbqgkanhAkqutxjl81-52-6254qluksynlv virus vaccine, unspecified formulationSmikey Witt LAW RESEARCHER Work Phone: [facility] HospitalSodyddcebl79-85-6082Gcncmemcy, Seasonal, Quadrivalent, AdjuvantMarcial Davis MD Work Phone: [facility] HospitalXcwhinkbcl59-45-1642jvzmgglbg virus vaccine, unspecified formulationChristian Davis MD Work Phone: [facility] HospitalIlvuzxtppd19-26-1340Efmheurfw, Seasonal, Quadrivalent, AdjuvantMarcial Davis MD Work Phone: [facility] HospitalIxznsxkmse94-79-3790jryyiviwbuqn conjugate 20- valent (Prevnar 20) 0.5 ML vaccineChristian Davis MD Work Phone: [facility] HospitalLxpadhidks11-47-0637jdnfywinn, high dose seasonal, preservative-José Manuel Davis MD Work Phone: [facility] HospitalRvuzqcbdgx73-37-5288owrhvsdus, injectable, quadrivalent, preservative José Manuel Davis MD Work Phone: [facility] HospitalDambxiextc94-16-4721Xsgndnwr trivalent influenza vaccine, adjuvanted, preservative José Manuel Davis MD Work Phone: [facility] HospitalScgjtqcqim85-42-9240qwypkkkbjgcm polysaccharide vaccine, 23 Yogesh Davis MD Work Phone: [facility] HospitalVktonejpjp90-09-2015Tduvlntmb, High-dose Seasonal, Quadrivalent, Preservative José Manuel Davis MD Work Phone: [facility] HospitalHxcyuwacnw36-55-5374jeibkuopvrpa conjugate vaccine, 13 Yogesh Davis MD Work Phone: [facility] HospitalUuwmxxmbtk66-27-1683skpbvbjpxqke polysaccharide vaccine, 23 Yogesh Dvais MD Work Phone: [facility] HospitalWtmbcnyrjq11-57-3779wulfwzzcc, injectable, quadrivalent, preservative José Manuel Davis MD Work Phone: [phone] [place], [place] [address]Mewfvbhijr86-20-1136dpkasuupo, injectable, quadrivalent, preservative José Manuel Davis MD Work Phone: [facility] HospitalRpnoftymhg94-60-5199mjspmtpjl virus vaccine, split virus (incl. purified surface antigen)Christian Davis MD Work Phone: [facility] HospitalXewhwcrqnx28-71-9609rgpbyq vaccine, Giles Davis MD Work Phone: [facility] HospitalZmpauwyowe37-90-0298uqpzisieptlj polysaccharide vaccine, 23 valYessy Davis MD Work Phone: [facility] Payers DatePayer CategoryPayerPolicy [id number] Health InsuranceD[facility] [place] [id number] 2014Medicare [id number] [id number] 1960 Private Health [id number] 2.0.1.712862.3.57[id number] 2.0.1.196105.3.57[id number] 2.0.1.439289.3.57[id number] 2.16.840.1.213903.3.57[id number] 2.16.840.1.753214.3.57[id number] 2.16.840.1.525893.3.57[id number] 2.16.840.1.042580.3.57[id number] 2.16.840.1.980912.3.57[id number] 2.16.840.1.128262.3.57[id number] 2.16.840.1.246133.3.57[id number] 2.16.840.1.38[id number] 2.16.840.1.420088.3.579.2.531 Social History DateTypeDetailFacilityStart: 01-09-8789Tjkvizr smoking status NHISTobacco smoking consumption unknownNOMS HealthcareStart: 04-07-2023 End: 69-75-2233Vnfdzeb of Social functionNOMS HealthcareStart: 04-07-2023 End: 78-59-7690Tsqnhpm Health Questionnaire 2 item (PHQ-2) [Reported][facility] HealthcareStart: 03-55-8810Hoh assigned at birthNot on fileNOMS HealthcareStart: 76-10-5455Wolaups smoking status NHISNever smoked tobaccoNOMS HealthcareStart: 62-45-9714Otiiecl use and exposureSmokeless tobacco non-userNOMS Healthcare Start: 11-24-2024 End: 22-13-1927Stxbujlkj beverage intakeEx-drinker (finding)[facility]: 48-40-1346Cmhaxgjh abuseDeniesBon [facility]: 47-40-0580UenBbgoao (finding)Brian [facility]: 29-85-4992Qjr assigned at birthFeBatavia Veterans Administration Hospitalon [facility]: 93-27-4057Zcqbhj identity Identifies as female gender (finding)Brian [facility]: 12-20-2024 Sexual orientationHeterosexual (finding)[facility] Functional Status MixbBbjadnfckpXdplxfAiydfvac72-01-1504Ueenrag Health Questionnaire 2 item (PHQ- 2) [Reported][facility] Clinical Notes 03-03-2024 to 02-02-2025 Note Date & YiztExikWyrccawl90-93-1452 NoteEXAM: FLUORO FOR SURGICAL PROCEDURES HISTORY: LUMBAR RFA COMPARISON: None. TECHNIQUE: Intraoperative fluoroscopy. 7.17 mGy air kerma dose IMPRESSION: FINDINGS/IMPRESSION: Dr. De Leon utilized the fluoroscope in the operating room during radiofrequency ablation. Interpreted by: Matias Weller Jr., MD Signed by: Matias Weller Jr., MD 02/02/25 Edited Result - [facility]08-28-2025 Hospital Discharge instructions* Discharge Instructions* Luciano Barreto RN - 01/26/2025 12:42 PM [...] relief) from an injection can take as longas 10 days to occur. You may have a period of slightly increased pain after your injection before the cortisone takes effect. You may resume all of your normal daily activities 24 hours after your injection. It is OK to restart your exercise or physical therapy program as soon as you feel comfortable doingso. Please complete the pain diary given to [...] retained a printed copy. documented in this encounterBon [facility]08-07-2025 History of Present illness Narrative* Meghan Gayle RN - 01/05/2025 3:40 PM EDT Discharge Criteria Outpatients must meet criteria 1 [...] operate motor Vehicle. Yes documented in this encounterBon [facility]08-07-20[facility] Hospital Discharge instructions* Discharge Instructions* Meghan Gayle RN - 01/05/2025 3:33 PM [...] relief) from an injection can take as longas 10 days to occur. You may have a period of slightly increased pain after your injection before the cortisone takes effect. You may resume all of your normal daily activities 24 hours after your injection. It is OK to restart your exercise or physical therapy program as soon as you feel comfortable doingso. Please complete the pain diary given to [...] retained a printed copy. documented in this encounterBon [facility]07-10-2025 Hospital Discharge instructions* Discharge Instructions* Meghan Gayle RN - 12/08/2024 12:51 PM [...] relief) from an injection can take as longas 10 days to occur. You may have a period of slightly increased pain after your injection before the cortisone takes effect. You may resume all of your normal daily activities 24 hours after your injection. It is OK to restart your exercise or physical therapy program as soon as you feel comfortable doingso. Please complete the pain diary given to [...] retained a printed copy. documented in this encounterBon [facility]06-26-2025 History of Present illness Narrative* Florencia Piña RN - 11/24/2024 3:00 PM EDT Discharge Criteria Outpatients must meet criteria 1 [...] operate motor Vehicle. Yes documented in this encounterBon [facility]06-26-2025 Hospital Discharge instructions* Discharge Instructions* Danielle Maguire RN - 11/24/2024 2:47 PM EDT You [...] relief) from an injection can take as longas 10 days to occur. You may have a period of slightly increased pain after your injection before the cortisone takes effect. You may resume all of your normal daily activities 24 hours after your injection. It is OK to restart your exercise or physical therapy program as soon as you feel comfortable doingso. Please complete the pain diary given to you after your injection. The information you provide on this diary is used to guide your treatment plan. You should schedule a follow-up visit in 2-3 weeks to review your response to this injection. Please bring your pain diary with you to this appointment. documented in this encounterBon [facility]04-01-2025 History of Present illness Narrative* Kunal Rodriguez DO - 08/30/2024 10:00 AM EDT Associated Order(s): Nerve Block Pre-Procedure Diagnose(s): Pain [...] good spread of the dye along the corresp onding nerve root and through the foramen into the axillary recess of the epidural space without any vascular uptake. Then the 0.5ml of 0.25% Bupivacaine mixed with 0.5ml of Dexamethasone 10mg/ml wasinjected without adverse effect. The next appropriate site [...] and showed a good spread of the dyealong the corresponding nerve root and through the foramen into the axillary recess of the epiduralspace without any vascular uptake. Then the 0.5ml of 0.25% Bupivacaine mixed with 0.5ml of Dexamethasone 10mg/ml was injected without adverse effect. The procedure was completed without complications and was tolerated well. The patient was monitoredafter the procedure. The patient (or responsible republican) was given post-procedure and discharge instructions to follow at home. The patient was discharged in stable condition. A follow-up appointment was made. The patient was instructed to avoid activities that would normally worsen the pain. Pre-procedure pain score: 3 /10 Superintendent Logging: RT Doug(R) kVp: 103 Time (sec): 24 mA: 3.0 Patient ID: Dayna Valencia is a 74 y.o. female. Nerve Block Date/Time: 08/30/2024 12:16 PM Performed by: Kunal Rodriguez DO Authorized by: Autumn Witt NP Consent: Consent obtained: Written Consent given by: Patient [place] protocol: Procedure explained and questions answered to patient or proxy's satisfaction: yes Patient identity confirmed: Verbally with patient Location: Body area: Trunk Trunk nerve: Lumbar Procedure details: Guidance: fluoroscopy Steroid injected: Dexamethasone Post-procedure details: Procedure completion: Tolerated documented in this [facility]02-06-2025 Instructions* Patient Instructions* Autumn Witt NP - 07/07/2024 2:40 PM EST - Bilateral L4 epidural injections scheduled for 08/30/2024 - Try dose increase of Meloxicam as directed. Discontinue use if ineffective documented in this [facility]01-16-2025 Telephone encounter Note* Telephone Encounter - Autumn Witt NP - 06/16/2024 1:55 PM EST No, thank you for catching that. She does not need the carotid ultrasound; that was placed in error. I reordered the lower extremity ultrasound with ELZA and canceled the order for the carotid ultrasound. [facility] Sgpybygapu56-56-5740 Miscellaneous Notes* Telephone Encounter - Autumn Witt NP - 06/16/2024 1:55 PM EST No, thank you for catching that. She does not need the carotid ultrasound; that was placed in error. I reordered the lower extremity ultrasound with ELZA and canceled the order for the carotid ultrasound. * Telephone Encounter - Griselda Issa MA - 06/16/2024 1:48 PM EST The original order was for a Vascular US lower extremity artrial duplex bilateral with ELZA and the new order was for a carotid ultrasound. Do you want both done? * Telephone Encounter - Autumn Witt NP - 06/16/2024 1:01 PM EST I placed a new order. * Telephone Encounter - Griselda Issa MA - 06/15/2024 2:12 PM EST Yes this code works it is I73.9 They are requesting a new order. * Telephone Encounter - Griselda Issa MA - 06/15/2024 8:54 AM EST Left message with [facility] * Telephone Encounter - Autumn Witt NP - 06/14/2024 3:45 PM EST Can we try vascular claudication since there is concern for this? * Telephone Encounter - Griselda Issa MA - 06/14/2024 3:30 PM EST [facility] at [facility] about her Vascular ultrasound diagnosis code meet guidelines to get this approved. She said none of the 3 work. Fax back [phone] [place]- [phone] documented in this encounterScotland County Memorial HospitalOjbrkcnuia97-88-9856 Telephone encounter Note* Telephone Encounter - Griselda Issa MA - 06/16/2024 1:48 PM EST The original order was for a Vascular US lower extremity artrial duplex bilateral with ELZA and the new order was for a carotid ultrasound. Do you want both done? [facility] HospitalIaujhekuey51-81-7490 Telephone encounter Note* Telephone Encounter - Autumn Witt NP - 06/16/2024 1:01 PM EST I placed a new order. [facility] HospitalNvghupyfvr43-20-6781 Telephone encounter Note* Telephone Encounter - Griselda Issa MA - 06/15/2024 2:12 PM EST Yes this code works it is I73.9 They are requesting a new order. [place] [address]Islbuxyzuy57-35-7225 Telephone encounter Note* Telephone Encounter - Griselda Issa MA - 06/15/2024 8:54 AM EST Left message with [facility] HospitalOghisaruqb33-37-6599 Telephone encounter Note* Telephone Encounter - Autumn Witt NP - 06/14/2024 3:45 PM EST Can we try vascular claudication since there is concern for this? [facility] HospitalPzlztujoiy96-73-0391 Telephone encounter Note* Telephone Encounter - Griselda Issa MA - 06/14/2024 3:30 PM EST [facility] at [facility] about her Vascular ultrasound diagnosis code meet guidelines to get this approved. She said none of the 3 work. Fax back [phone] [place]- [phone] [facility] HospitalRjjjcipqfl22-08-2780 Instructions* Patient Instructions* Autumn Witt NP - 06/07/2024 4:00 PM EST - Start meloxicam 7.5 mg by mouth once a day - Vascular ultrasound - Check labs (CK, myoglobin, aldolase) documented in this encounterScotland County Memorial HospitalPajbvqbhkp98-80-5843 History of Present illness Narrative* ASHIA Camacho - 05/10/2024 10:00 AM EST Images from the original note were [...] good spread of the dye along the corresp onding nerve root and through the foramen into the axillary recess of the epidural space without any vascular uptake. Then the 0.5ml of 0.25% Bupivacaine mixed with 0.5ml of Dexamethasone 10mg/ml wasinjected without adverse effect. The next appropriate site [...] and showed a good spread of the dyealong the corresponding nerve root and through the foramen into the axillary recess of the epiduralspace without any vascular uptake. Then the 0.5ml of 0.25% Bupivacaine mixed with 0.5ml of Dexamethasone 10mg/ml was injected without adverse effect. The procedure was completed without complications and was tolerated well. The patient was monitoredafter the procedure. The patient (or responsible republican) was given post-procedure and discharge instructions to follow at home. The patient was discharged in stable condition. A follow-up appointment was made. The patient was instructed to avoid activities that would normally worsen the pain. Pre-procedure pain score: 2 /10 Superintendent Logging: RT Doug(R) kVp: 103 Time (sec): 19 mA: 3.0 documented in this encounterScotland County Memorial [id number] History of Present illness Narrative* Christian Davis MD - 04/08/2024 10:30 AM EST Images from the original note were [...] Do you have a medical power of scrubbing machine operator?: Yes Who is your medical power of scrubbing machine operator?: Objective : BP 122/68 Pulse 83 Ht [...] Morbid (severe) obesity due to excess calories ([facility]) - TSH W/REFLEX TO FT4; Future - [...] on April 08, 2024 documented in this encounterScotland County Memorial [id number] History of Present illness Narrative* Kunal Rodriguez, DO - 04/06/2024 10:00 AM EST Images from the original note were [...] a shooting pain. She also reports aching behindher knees when she is laying down. She [...] headaches. Past Medical History: Diagnosis Date Migraine (CMS/HCC) Missed 1969 Osteopenia of hip Osteoporosis (CMS/HCC) 2014 Rectocele Past Surgical History: Procedure Laterality Date CHOLECYSTECTOMY laparoscopic cholecystectomy COLONOSCOPY with sphincterotomy DILATION AND CURETTAGE OF UTERUS 1970 OTHER SURGICAL HISTORY LVB Family History Problem [...] , wrist extensors , wrist flexor , news content specialist strength 5/5. LUE Strength deltoid , biceps , triceps , wrist extensors , wrist flexor , news content specialist strength 5/5. RLE Strength illopsoas, quadriceps, tibialis [...] knee reflex 0. Wright's sign negative. Coordination: Eruzbh-ob-feqs testing and rapid alternating movements are normal [...] of radicular process with concern for compressive lesionwhich could be debilitating if not correctly identified and treated. Plan: MRI of the lumbar spine without contrast Lumbosacral radiculopathy The patient has lumbosacral radiculopathy identified on EMG. The patient's symptoms are consistent with this. The patient has failed physical therapy. Patient has failed gfrm-lhj-wxmoryo medication and prescription medication for relief of the symptoms. The symptoms are interfering negatively with the patient's daily life. She is having limited mobility and enjoys walking but is seemingly unable to do so. She really is not open to surgical intervention but does want to explore injection therapyto try to get relief of her symptoms. Plan: Epidural bilaterally at L4 Risks including but not limited to epidural hematoma, contrast reaction, cumulative steroid dosing risks and infection discussed. Patient understands these wishes proceed. Pt has been fully educated on their diagnosis, lab results, treatment options, follow up plan, and return instructions documented in this encounterScotland County Memorial [id number] History of Present illness Narrative* Christian Davis MD - 03/18/2024 10:30 AM EDT Images from the original note were not [...] 09/16/2024) for Routine F/U. documented in this encounterScotland County Memorial [id number] History of Present illness Narrative* Manjit Moctezuma, ARRT - 03/10/2024 11:00 AM EDT Images from the original note were not included. Reason for Appointment: EMG Patient: Dayna Valencia : 1950 EMG Computer: Fliiby Referring Physician: Dr. Christian Davis EMG: JAXON car shakeout operator: Manjit Moctezuma RT(R) Office Location: [place] Reason for EMG: c/o tightness/stiffness in bilateral legs, low back pain. No hx of DM. Not on bloodthinners. Comments: Procedure was explained to the patient who expressed understanding. Patient appeared to have tolerated the test well despite some discomfort due to the nature of the test. documented in this encounterScotland County Memorial [id number] History of Present illness Narrative* Christian Davis MD - 03/03/2024 11:30 AM EDT Images from the original note were not [...] 03/17/2024) for Test/Lab Review. [facility] Diagnosis Neurogenic claudication- Primary Spinal stenosis of lumbar region documented in this encounter [facility]* Diagnosis Lumbosacral radiculopathy- Primary Thoracic or lumbosacral neuritis or radiculitis, unspecified Neurogenic claudication Spinal stenosis of lumbar region documented in this encounter [facility]* Diagnosis Neurogenic claudication- Primary Spinal stenosis of lumbar region documented in this encounter [facility]* Diagnosis Weakness of both lower extremities- Primary Lumbosacral radiculopathy Thoracic or lumbosacral neuritis or radiculitis, unspecified documented in this encounter [facility]* Diagnosis Routine general medical examination at health care facility- Primary Routine general medical examination at a health care facility ACP (advance care planning) Other specified counseling Breast screening Breast screening, unspecified Estrogen deficiency Other ovarian failure Morbid (severe) obesity due to excess calories (CMS/HCC) Unilateral primary osteoarthritis, right knee Body mass index (BMI) 35.0-35.9, adult documented in this encounter [facility]* Diagnosis Lumbar radiculopathy- Primary Thoracic or lumbosacral neuritis or radiculitis, unspecified Lumbosacral radiculopathy Thoracic or lumbosacral neuritis or radiculitis, unspecified documented in this encounter [facility]* Diagnosis Pain in both lower extremities- Primary Weakness of both lower extremities Lumbar spondylosis Lumbosacral spondylosis without myelopathy Lumbar radiculopathy Thoracic or lumbosacral neuritis or radiculitis, unspecified documented in this encounter [facility]* Diagnosis Vascular claudication (CMS/HCC)- Primary Pain in both lower extremities Weakness of both lower extremities documented in this encounter [facility] HealthcareEvaluation note* Diagnosis Pain in both lower extremities- Primary Weakness of both lower extremities Lumbar spondylosis Lumbosacral spondylosis without myelopathy Lumbosacral radiculopathy Thoracic or lumbosacral neuritis or radiculitis, unspecified documented in this encounter [facility]* Diagnosis Lumbar radiculopathy- Primary Thoracic or lumbosacral neuritis or radiculitis, unspecified Pain in both lower extremities Lumbar spondylosis Lumbosacral spondylosis without myelopathy Lumbosacral radiculopathy Thoracic or lumbosacral neuritis or radiculitis, unspecified documented in this encounter [facility] Healthcare[facility]* Diagnosis Lumbosacral spondylosis without myelopathy- Primary documented in this encounter [facility] HealthEvaluation note* Diagnosis Lumbosacral spondylosis without myelopathy- Primary documented in this encounter [facility] for visit Narrative* Consultation (Routine) - ClosedSpecialtyDiagnoses / ProceduresReferred By ContactReferred To Contact Neurology Diagnoses Neurogenic claudication Procedures [place] OFFICE/OUTPATIENT [facility] 60 MINUTES Christian Davis MD [address] [facility] [address] [place] [address] Phone: tel: fax: Kunal Rodriguez DO [address] [place] [address] Phone: tel: fax: Referral IDStatusReasonStart DateExpiration DateVisits RequestedVisits [id number] Consult and Treat / [facility] for visit Narrative* Injection (Routine) - ClosedSpecialty Diagnoses / ProceduresReferred By ContactReferred To ContactNeurology Diagnoses Lumbosacral radiculopathy Procedures Nerve Block Kunal Rodriguez DO [address] [place] [address] Phone: tel: fax: Referral IDStatusReasonStart DateExpiration DateVisits RequestedVisits [id number]/ [facility] for visit Narrative* Injection (Routine) - ClosedSpecialty Diagnoses / ProceduresReferred By ContactReferred To ContactNeurology Diagnoses Pain in both lower extremities Lumbar spondylosis Lumbar radiculopathy Procedures Nerve Block Autumn Witt, BEL[place] [address] [place] [phone] Phone: tel: Referral IDStatusReasonStart DateExpiration DateVisits RequestedVisits [id number] [facility] for visit Narrative* Auth/CertSpecialtyDiagnoses / ProceduresReferred By ContactReferred To Contact Diagnoses Lumbosacral spondylosis without myelopathy Procedures WI NJX DX/THER AGT PVRT FACET JT LMBR/SAC 1 LEVEL BILATERAL LUMBAR L3, L4, L5 MEDIAL BRANCH BLOCK ScottsdaleAshley smith, DO [address] [place] [address] Phone: tel: fax: [facility] HospitalBlueMessaging [facility] [id number] [place] [phone] Referral IDStatusReasonStart DateExpiration DateVisits RequestedVisits [id number] [facility] for visit Narrative* Auth/CertSpecialtyDiagnoses / ProceduresReferred By ContactReferred To Contact Diagnoses Lumbosacral spondylosis without myelopathy Procedures WI NJX DX/THER AGT PVRT FACET JT LMBR/SAC 1 LEVEL WI NJX DX/THER AGT PVRT FACET JT LMBR/SAC 2ND LEVEL BILATERAL LUMBAR L3, L4, L5 MEDIAL BRANCH BLOCK Moises, Ashley, DO [address] [place] [address] Phone: tel: fax: [facility] CenterFl[facility] HospitalBlueMessaging [facility] [address] [place] [address] Referral IDStatusReasonStart DateExpiration DateVisits RequestedVisits [id number] [facility] Narrative* Auth/CertSpecialtyDiagnoses / ProceduresReferred By ContactReferred To Contact Diagnoses Lumbosacral spondylosis without myelopathy Procedures WI DSTR NROLYTC AGNT PARVERTEB FCT SNGL LMBR/SACRAL WI DSTR NROLYTC AGNT PARVERTEB FCT ADDL LMBR/SACRAL RIGHT LUMBAR L3, L4, L5 RADIO FREQUENCY ABLATION Moises, Ashley, DO [address] [place] [address] Phone: tel: fax: [facility] [address] [place] [address] Referral IDStatusReasonStmora DateExpiration DateVisits RequestedVisits [id number] [facility] for visit Narrative* Auth/CertSpecialtyDiagnoses / ProceduresReferred By ContactReferred To Contact Diagnoses Lumbosacral spondylosis without myelopathy Procedures WI DSTR NROLYTC AGNT PARVERTEB FCT SNGL LMBR/SACRAL WI DSTR NROLYTC AGNT PARVERTEB FCT ADDL LMBR/SACRAL LEFT LUMBAR L3, L4, L5 RADIO FREQUENCY ABLATION [place], Ashley, DO [address] [place] [address] Phone: tel: fax: [facility] [address] [place] [address] Referral IDStatusReasonStmora DateExpiration DateVisits RequestedVisits [id number] [facility] Summary Purpose Family History No Family History Records FoundNo Family History Records FoundNo Family History Records FoundNo Family History Records FoundNo Family History Records Found Advance Directives No Advanced Directives Records FoundNo Advanced Directives Records FoundNo Advanced Directives Records FoundNo Advanced Directives Records FoundNo Advanced Directives Records Found Additional Source Comments INFORMATION SOURCE (unrecogn ized section and content) DATE CREATED AUTHOR 03/30/2022 [facility] DATE CREATED AUTHOR AUTHOR'S ORGANIZ ATION 04/11/2024 [facility] DATE CREATED AUTHOR AUTHOR'S ORGANIZ ATION 05/03/2024 [facility] DATE CREATED AUTHOR AUTHOR'S ORGANIZ ATION 02/04/2025 [facility] DATE CREATED AUTHOR AUTHOR'S ORGANIZ ATION 04/11/2025 [facility] Care Teams (unrecognized sec tion and content) Team MemberRelationshipSpecialtyStart DateEnd Christian Davis MD [address] [place] [address] PCP - GeneralInternal Medicine10/07/22 Elizabeth Davis, LAW RESEARCHER [address] [place] [address] PCP - ACO Reach09/30/23Team MemberRelationshipSpecialtyStart DateEnd Christian Davis MD [address] [place] [address] PCP - GeneralInternal Medicine10/07/22 Elizabeth Davis LAW RESEARCHER [address] [place] [address] PCP - ACO [facility]09/30/23Team MemberRelationshipSpecialtyStart DateEnd Christian Davis MD [address] [place] [address] PCP - GeneralInternal Medicine10/07/22 Elizabeth Davis LAW RESEARCHER [address] [place] [address] PCP - ACO [facility]09/30/23Team MemberRelationshipSpecialtyStart DateEnd Christian Davis MD [address] [place] [address] PCP - GeneralInternal Medicine10/07/22 Elizabeth Davis LAW RESEARCHER [address] [place] [address] PCP - O [facility]09/30/23Team MemberRelationshipSpecialtyStart DateEnd Date Christian Davis MD [address] [place] [address] PCP - [facility]Val[facility] Maryvalenal Medicine10/07/22 Elizabeth Davis, LAW RESEARCHER [address] [place] [address] PCP - O [facility]09/30/23Team MemberRelationshipSpecialtyStart DateEnd Date Christian Davis MD [address] [place] [address] PCP - GeneralAsh[facility]10/07/22 Elizabeth Davis, LAW RESEARCHER [address] [place] [address] PCP - O [facility]09/30/23Team MemberRelationshipSpecialtyStart DateEnd Date Christian Davis MD [address] [place] [address] PCP - GeneralVal[facility] Maryvalenal [facility]10/07/22 Elizabeth Davis, LAW RESEARCHER [address] [place] [address] PCP - [facility]09/30/23Team MemberRelationshipSpecialtyStart DateEnd Date Christian Davis MD [address] [place] [address] PCP - GeneralVal[facility]wise [facility] Maryvalenal [facility]10/07/22 Elizabeth Davis, LAW RESEARCHER [address] [place] [address] PCP - ACO [facility]09/30/23Team MemberRelationshipSpecialtyStart DateEnd Date Christian Davis MD [address] [place] [address] PCP - GeneralInternal Medicine10/07/22 Elizabeth Davis, LAW RESEARCHER [address] [place] [address] PCP - ACO [facility]09/30/23Team MemberRelationshipSpecialtyStart DateEnd Date Christian Davis MD [address] [place] [address] PCP - GeneralVal[facility] Maryvalenal Medicine10/07/22 Elizabeth Davis, LAW RESEARCHER [address] [place] [address] PCP - O [facility]09/30/23Team MemberRelationshipSpecialtyStart DateEnd Date Christian Davis MD [address] [place] [address] PCP - GeneralVal[facility] Maryvalenal Medicine10/07/22 Elizabeth Davis, LAW RESEARCHER [address] [place] [address] PCP - ACO [facility]09/30/23Team MemberRelationshipSpecialtyStart DateEnd Date Christian Davis MD [address] [place] [address] PCP - GeneralVal[facility] Maryvalenal Medicine10/07/22 Elizabeth Davis, LAW RESEARCHER [address] [place] [address] PCP - ACO Reach09/30/23Team MemberRelationshipSpecialtyStart DateEnd Date Christian Davis MD [address] [place] [address] PCP - GeneralInternal Medicine10/07/22 Elizabeth Davis NP [address] [place] [address] PCP - ACO Reach09/30/23Team MemberRelationshipSpecialtyStart DateEnd Date Christian Davis MD [address] [place] [address] PCP - GeneralInternal Medicine10/07/22 Elizabeth Davis LAW RESEARCHER [address] [facility] [address] [place] [address] PCP - ACO Reach09/30/23 Kunal Rodriguez DO [address] [place] [address] Referring PhysicianNeurology2/11/23Team MemberRelationshipSpecialtyStart DateEnd Date Christian Davis MD [address] [facility] [address] [place] [address] PCP - GeneralInternal Medicine10/07/22 Elizabeth Davis NP [address] [facility] [address] [place] [address] PCP - ACO Reach09/30/23 Kunal Rodriguez DO [address] [place] [address] Referring PhysicianNeurology2Team MemberRelationshipSpecialtyStart DateEnd Date Christian Davis MD [address] [place] [address] PCP - GeneralInternal Medicine10/07/22 Christian Davis MD [address] [place] [address] PCP - ACO Reach07/08/24 Kunal Rodriguez DO [address] [place] [address] Referring PhysicianNeurology2Team MemberRelationshipSpecialtyStart DateEnd Date Christian Davis MD [address] [place] [address] PCP - GeneralInternal Medicine10/07/22 Christian Davis MD [address] [place] [address] PCP - ACO Reach07/08/24 Kunal Rodriguez DO [address] [place] [address] Referring PhysicianNeurology2Team MemberRelationshipSpecialtyStart DateEnd Date Christian Davis MD [address] [place] [address] PCP - GeneralInternal Medicine10/07/22 Christian Davis MD [address] [place] [address] PCP - ACO Reach07/08/24 Kunal Rodriguez DO [address] [place] [address] Referring PhysicianNeurology2/11/23Team MemberRelationshipSpecialtyStart DateEnd Date Christian Davis MD [address] [place] [address] PCP - GeneralInternal Medicine10/06/24Team MemberRelationshipSpecialtyStart Date End Date Christian Davis MD [address] [place] [address] PCP - GeneralInternal Medicine10/06/24Team MemberRelationshipSpecialtyStart Date End Date Christian Davis MD [address] [place] [address] PCP - GeneralInternal Medicine10/07/22 Christian Davis MD [address] [place] [address] PCP - ACO Reach07/08/24 Kunal Rodriguez DO [address] [place] [address] Referring PhysicianNeurology2Team MemberRelationshipSpecialtyStart DateEnd Date Christian Davis MD [address] [place] [address] PCP - GeneralInternal Medicine10/06/24Team MemberRelationshipSpecialtyStart Date End Date Christian Davis MD [address] [place] [address] PCP - GeneralInternal Medicine10/06/24Team MemberRelationshipSpecialtyStart Date End Christian Davis MD [address] [place] [address] PCP - GeneralInternal Medicine10/07/22 Christian Davis MD [address] [place] [address] PCP - ACO Reach07/08/24 Kunal Rodriguez DO [address] [place] [address] Referring PhysicianNeurolog07/07/24Team MemberRelationshipSpecialtyStart DateEnd Date Christian Davis MD [address] [facility] [address] [place] [address] PCP - GeneralInternal Medicine10/07/22 Elizabeth Davis NP [address] [place] [address] PCP - ACO Reach Christian Davis MD [address] [facility] [address] [place] [address] PCP - ACO Reach07/08/24 Kunal Rodriguez DO [address] [place] [address] Referring PhysicianNeurolog07/07/24Team MemberRelationshipSpecialtyStart DateEnd Date Christian Davis MD [address] [place] [address] PCP - GeneralInternal Medicine10/07/22 Elizabeth Davis, LAW RESEARCHER [address] [address] [place] [address] PCP - ACO Reach10/23/ Elizabeth Davis LAW RESEARCHER [address] [address] [place] [address] PCP - ACO Reach Christian Davis MD [address] [address] [place] [address] PCP - ACO Reach07/08/24 Kunal Rodriguez DO [address] [place] [address] Referring PhysicianNeurolog07/07/24 Reason for Visit (unrecogniz ed section and content) ReasonCommentsLeg PainSpecialtyDiagnoses / ProceduresReferred By ContactReferred To ContactNeurology Diagnoses Neurogenic claudication Procedures EMG AND NERVE CONDUCTION STUDY Christian Davis MD [address] [address] [place] [address] Kunal Rodriguez DO [address] [place] [address] Referral IDStatusReasonStart DateExpiration DateVisits RequestedVisits [id number] Perform Procedure [id number]-osBod painReasonComments Medicare Annual Wellness Visit SubsequentReasonCommentsExtremity WeaknessPain ReasonOnset DateCommentsLower extremity /14/2025ReasonComments Extremity WeaknessPain PRN Active and Recently Administ ered Medications (unrecognized section and content) Medication Order/// lidocaine PF 2 % injection (CANCELED) PRN, Starting on Asha 11/24/24 at 1441, Until Asha 11/24/24 at 1447, Intra-op * 1441 (Given - Provider: Ashley [place], DO - Comment: used 6mls for case) Medication Order// lidocaine PF 2 % injection (CANCELED) PRN, Starting on Asha 12/08/24 at 1246, Until Asha 12/08/24 at 1249, Intra-op * 1246 (Given - Provider: Ashley De [place] DO - Comment: 1 mL injected at each site) Medication Order// dexAMETHasone (DECADRON) (CANCELED) PRN, Starting on Asha 01/05/25 at 1515, Until Asha 01/05/25 at 1524, Intra-op * 1515 (Given - Provider: Ashley [place], DO - Comment: used 1mls for case) lidocaine PF 1 % injection (CANCELED) PRN, Starting on Asha 01/05/25 at 1516, Until Asha 01/05/25 at 1524, Intra-op * 1516 (Given - Provider: Ashley [place], DO - Comment: used 2mls for case) lidocaine PF 2 % injection (CANCELED) PRN, Starting on Asha 01/05/25 at 1514, Until Asha 01/05/25 at 1524, Intra-op * 1514 (Given - Provider: Ashley [place], DO - Comment: used 5mls for case) Medication Order// dexAMETHasone (DECADRON) (CANCELED) PRN, Starting on Asha 01/26/25 at 1247, Until Asha 01/26/25 at 1256, Intra-op * 1247 (Given - Provider: Ashley [place], DO - Comment: used 1mls for case) lidocaine PF 1 % injection (CANCELED) PRN, Starting on Asha 01/26/25 at 1248, Until Asha 01/26/25 at 1256, Intra-op * 1248 (Given - Provider: Ashley De [place], - Comment: used 2mls for case) lidocaine PF 2 % injection (CANCELED) PRN, Starting on Asha 01/26/25 at 1247, Until Asha 01/26/25 at 1256, Intra-op * 1247 (Given - Provider: Ashley [place], DO - Comment: used [...] BE BASED ON THE PRIMARY CLINICAL RECORDS. [facility] provides no warranty or guarantee of the accuracy or completeness of information in this document.
--- OUTSIDE RECORDS SUMMARY | 2025-04-11 12:21 | XMS_ITS | Encounter Summary ---
Author Organization [facility] Address [address] [facility] [place] [address] Care Team Providers Care Title Insurance Examiner Name Role Phone Christian Davis MD Primary Care Provider Elizabeth Davis FELT FINISHER Unavailable Elizabeth Davis FELT FINISHER Unavailable Yordan Rodriguez DO Unavailable [phone] Christian Davis MD Unavailable [phone] Encounter Details DateTypeDepartmentCare Team (Latest Contact Info)Qvvmlpzklys35/17/2023Clinisync Result Encounter [facility] External Department Unsolicited Christian Davis MD [address] [facility] [address] [place] [address] Social History Tobacco UseTypesPacks/DayYears UsedDateSmoking Tobacco: Never AssessedPHQ-2 AnswerDate RecordedPatient Health Questionnaire-2 Bsrfa399/08/2024 CommentsUnknownSex and Gender InformationValueDate RecordedSex Assigned at Not on fileLegal ZbpKkozvg13/15/2023 6:53 PM EDTGender IdentityNot on fileSexual OrientationNot on filedocumented as of this encounter Functional Status * Over the past 2 weeks, how often have you been bothered by any of the following problems?QuestionAnswerDate of AssessmentAuthorLittle interest or pleasure in doing thingsNot at all04/08/2024 10:00 AM Annie Contreras LPN Feeling down, depressed, or hopelessNot at all04/08/2024 10:00 AM Annie Contreras LPNPatient Health Questionnaire-2 Framb83806/08/2023 10:00 AM Annie Contreras LPN documented as of this encounter Plan of Treatment DateTypeDepartmentCare Team (Latest Contact Info)Aydbgomrfcq43/08/2025 11:00 AM ESTOffice Visit [facility] [place] [facility] [address] [place] [address] [place] [address] Christian Davis MD [address] [facility] [address] [place] [address] documented as of this encounter Procedures Procedure NamePriorityDate/TimeAssociated DiagnosisCommentsMM TOMOSYNTHESIS SCREENING BI04/17/2023 1:31 PM EST documented in this encounter Results * MM TOMOSYNTHESIS SCREENING (04/17/2023 1:31 PM EST)Anatomical Region LateralityModalityOtherSpecimen (Source)Anatomical Location / Laterality Collection Method / VolumeCollection TimeReceived Time04/17/2023 1:31 PM EST Narrative 04/17/2023 1:31 PM EST [facility] ?[address] ? [place] [address] ? Mammography Report ? Signed ? Patient: MiltonconradDayna S ?MR#: [id number] ?? : 1950 ?Acct:[id number] ?? Age/Sex: 72 / F ?ADM Date: 04/17/ ?? Loc: MAMMO ? Attending Dr: CHRISTIAN DAVIS ? Ordering Physician: CHRISTIAN DAVIS ? Results: ? Date of Service: 04/17/ ?Follow Up: ? Procedure(s): MM tomosynthesis screening BI ?? Accession Number(s): [id number] ? cc: CHRISTIAN DAVIS ? [facility] ? MR#: [id number] ? : 1950 ? Exam Date: 04/17/2023 ?? Ordering Doctor: DR CHRISTIAN DAVIS M.D. ? RADIOLOGY REPORT ? PROCEDURE: ? MM TOMOSYNTHESIS SCREENING BI ? COMPARISON: ? MG MAMM SCREEN 3D MARIO CAD, 03/15/2021. ??MG MAMM SCREEN 3D MARIO ?? CAD, 03/25/2022. ? INDICATIONS: ? Screening mammogram ? Calculator Name ? NCI Breast Cancer Risk Assessment Tool ?? 5 Year Breast Cancer Risk ? 1.70% ?? Lifetime Breast Cancer Risk ? 4.00% ?? Personal Breast Cancer ?No ?? Personal Ovarian Cancer ? No ?? Treatments ? None ?? Family Cancers ? Mother with lymphoma ??cancer at age 85; Father with stomach ?? cancer at age 68. ? LOCATION: ? [facility] ? BREAST COMPOSITION: ? Scattered areas fibroglandular density. ? FINDINGS: ? DIAGNOSTIC CATEGORY 1--NEGATIVE. NO CHANGE FROM COMPARISON ASSESSMENT. ? Scattered benign-appearing calcifications are present. ??Scattered [...] ? Dictated by: Rhett Hernandez MD on 04/17/2023 at 13:28 ? Approved by: Rhett Hernandez MD on 04/17/2023 at 13:30 ? Dictated By: ?Rhett Hernandez M.D. ? Signed By: ?04/17/232 ? DD/ ? TD/TT: ? Labeling Specialist: Procedure Note Radiology, Radiologist, MD - 04/17/2023 [place] [address] Mammography Report Signed Patient: Dayna Sanchez SMR#: [id number] : 1950cct:[id number] Age/Sex: 72 / FADM Date: 04/17/23 Loc: MAMMO Attending Dr: CHRISTIAN DAVIS Ordering Physician: CHRISTIAN DAVISResults: Date of Service: 04/17/23Follow Up: Procedure(s): MM tomosynthesis screening BI Accession Number(s): [id number] cc: CHRISTIAN DAVIS Patient Name: DAYNA SANCHEZ MR#: [id number] : 1950 Exam Date: 04/17/2023 Ordering Doctor: DR CHRISTIAN DAVIS M.D. RADIOLOGY REPORT PROCEDURE: MM TOMOSYNTHESIS SCREENING BI COMPARISON: MG MAMM SCREEN 3D MARIO CAD, 03/15/2021. MG MAMM SCREEN 3DBIL CAD, 03/25/2022. INDICATIONS: Screening mammogram Calculator Name NCI Breast Cancer Risk Assessment Tool 5 Year Breast Cancer Risk 1.70% Lifetime Breast Cancer Risk 4.00% Personal Breast Cancer No Personal Ovarian Cancer No Treatments None Family Cancers Mother with lymphoma cancer at age 85; Father withstomach cancer at age 68. LOCATION: [facility] BREAST COMPOSITION: Scattered areas fibroglandular density. FINDINGS: [...] BIOPSIED. Dictated by: Rhett Hernandez MD on 04/17/2023 at 13:28 Approved by: Rhett Hernandez MD on 04/17/2023 at 13:30 Dictated By: Rhett Hernandez M.D. Signed By:04/17/23 1332 DD/ 133 TD/TT: Labeling Specialist: Authorizing ProviderResult TypeResult StatusDaniotto Davis MDCLINISYNC IMAGING Final Result documented in this encounter Visit Diagnoses Not on filedocumented in this encounter Additional Health Concerns AssessmentNoted TimePHQ-9 Depression Total Score: 9:00 AM EST documented as of this encounter Care Teams Team MemberRelationshipSpecialtyStart DateEnd Date Christian Davis MD [address] [facility] [address] [place] [address] PCP - GeneralInternal Medicine10/07/22 Elizabeth Davis, FELT FINISHER [address] [facility] [address] [place] [address] PCP - ACO Reach10/23/ Elizabeth Davis, FELT FINISHER [address] [facility] [address] [place] [address] PCP - ACO Reach Christian Davis MD [address] [facility] [address] [place] [address] PCP - ACO Reach07/08/24 Yordan Rodriguez DO [address] [place] [address] Referring PhysicianNeurology2documented as of this encounter
--- OUTSIDE RECORDS SUMMARY | 2025-04-11 12:21 | XMS_ITS | Patient Health Record ---
Author Organization [facility] Address [address] [address], [facility] [place] [address] Care Team Providers Care Director Of Events Name Role Phone Sherman Winter Unavailable [phone] Allergies No Known Allergies Reason For Referral No Information Medications Medication SIG (Take, Route, Frequency, Duration) Notes Start Date End Date Status predniSONE 10 MG Tablet 1 tablet with food or mi lk Orally Once a day ActiveWomens MultivitaminActiveCalcium CitrateActiveVitamin B 12Active Social History Section Notes: Patient is a nonsmoker No alcohol use. Problems Problem Type SNOMED Code ICD Code Onset Dates Problem Status W/U Status Risk Notes Problem Sciatica (86895624) Sciatica of right karli e (M54.31) ActiveconfirmedProblemPlantarflexion deformity of right foot (finding) (1105686857064358)Equinus contracture of right ankle (M24.571)Activeconfirmed Encounters Encounter Location Date Provider Diagnosis [facility] [address] [address], [place] [address] 03/09/2025 Sherman Barahonaestephanie Right Achilles tendinitis M76.61 ; Sciatica of right side M54.31 and Equinus contracture of right ankle M24.571 Assessments Encounter Date Diagnosis (ICD Code) Assessment Notes Treatment Notes Treatment Clinical Notes Section Notes 03/09/2025 Right Achilles tendinitis (ICD-1 0 - M76.61) Patient was seen and evaluated. Patient education provided and all questions answered to satisfaction. I recommended nonsurgical treatment at this time. Treatment advices included: - RICE therapy as well as shoe and activity modification - Home stretching program to be performed 3x daily - handout provided - Physical therapy order was provided with dry needling - Discussed medications and potential side effect. Medication(s) recommended topical Voltaren prn - Imaging ordered: 3v of foot reviewed which demonstrates retrocalcaneal spur with intact cortices. 03/09/2025Sciatica of right side (ICD-10 - M54.31)03/09/2025Equinus contracture of right ankle (ICD-10 - M24.571) Plan Of Treatment Next Appt Details Provider Name:Sherman sinclair, 04/21/2025 11:00:00 AM, [address] [facility], [address], [address], [place], [address], Insurance Providers Payer Name Payer Address Payer Phone Subscriber Number Group Number Insured Name Patient Relationship to Insured Coverage Start Date Coverage End Date [employer] [place] [address], [place] [address] [id number] Milagros Sanchezelf - patient is the insured Medical (General) History Medical History History ICD Code Lumbar Spinal Stenosis
--- OUTSIDE RECORDS SUMMARY | 2025-04-11 12:21 | XMS_ITS | Encounter Summary ---
Author Organization [facility] Address [address] [facility] [place] [address] Care Team Providers Care Sign Board Erector Name Role Phone Christian Davis MD Primary Care Provider [phone] Yordan Rodriguez DO Unavailable [phone] Christian Davis MD Unavailable [phone] Encounter Details DateTypeDepartmentCare Team (Latest Contact Info)Drxcqaeikph98/10/2025Travel Social History Tobacco UseTypesPacks/DayYears UsedDateSmoking Tobacco: NeverSmokeless Tobacco: NeverPHQ-2AnswerDate RecordedPatient Health Questionnaire-2 Ljfwr400 CommentsUnknownSex and Gender InformationValueDate RecordedSex Assigned at BirthNot on fileLegal CqeHkampc41/15/2023 6:53 PM EDTGender IdentityNot on fileSexual OrientationNot on filedocumented as of this encounter Functional Status * Over the past 2 weeks, how often have you been bothered by any of the following problems?QuestionAnswerDate of AssessmentAuthorLittle interest or pleasure in doing thingsNot at all04/10/2025 1:00 PM Annie Contreras LPN Feeling down, depressed, or hopelessNot at all04/10/2025 1:00 PM Annie Contreras LPNPatient Health Questionnaire-2 Glsrf67706/10/2024 1:00 PM Annie Contreras LPN documented as of this encounter Plan of Treatment DateTypeDepartmentCare Team (Latest Contact Info)Duzkahzkgxb76/08/2025 11:00 AM ESTOffice Visit [facility] [address] [facility] 110 [place] [id number] Christian Davis MD [address] [facility] 110 [place] [address] documented as of this encounter Visit Diagnoses Not on filedocumented in this encounter Additional Health Concerns AssessmentNoted TimePHQ-9 Depression Total Score: 9:00 AM EST documented as of this encounter Care Teams Team MemberRelationshipSpecialtyStart DateEnd Date Christian Davis MD [address] [facility] 110 [place] [address] PCP - GeneralInternal Medicine10/07/22 Christian Davis MD [address] [facility] 110 [place] [address] PCP - ACO Reach07/08/24 Yordan Rodriguez DO [address] [place] [address] Referring PhysicianNeurology2documented as of this encounter
--- OUTSIDE RECORDS SUMMARY | 2025-04-11 12:21 | XMS_ITS | Clinical Summary ---
Author Organization [facility] Address [address] [facility] [place] [address] Care Team Providers Care Lumber Sorter Name Role Phone Christian Davis MD Primary Care Provider [phone] Yordan Rodriguez DO Unavailable [phone] Christian Davis MD Unavailable [phone] Allergies Active AllergyReactionsCriticalityNoted UyblGolbkcfrMsvhejldyll56/07/2023 Other Reaction(s): diarrhea Hydrocodone-PubkfbxugojfeQwjnhkdc16/07/2023Oxycodone-AcetaminophenHeadache 04/07/2023 Medications MedicationSigDispense QuantityRefillsLast FilledStart DateEnd DateStatus Calcium Carbonate-Vit D-Min (Calcium 600+D3 Plus Minerals) 600-800 MG-UNIT chewable tablet 1 (one) time each day at the same time.Active Multiple Vitamin (Multi Vitamin) tablet 1 (one) time each day at the same time.Active Active Problems ProblemNoted DateDiagnosed DateEstrogen hptrqujavp07/06/2024Lumbar degenerative disc bpchana4104/06/2024Lumbar /06/2024Obesity (BMI 30-39.9) 04/06/2024Osteopenia of right hip04/06/2024rimary osteoarthritis of right knee 04/06/2024 Encounters DateTypeDepartmentCare PsdiFmitytykqti05/10/2025 1:30 PM ESTOffice Visit [facility] [address] [place] [id number] Christian Davis MD Routine general medical examination at health care facility (Primary Dx); ACP (advance care planning); Degeneration of intervertebral disc of lumbar region, unspecified whether pain present; Weakness; Lumbar radiculopathy; B12 deficiency; Body mass index (BMI) 35.0-35.9, adult04/10/2025amboo flowsheet [facility] [address] [facility] [address] [place] [address] Christian Davis MD 04/10/20250433Wcmiei61/06/2025Clinisync Result Encounter [facility] External Department Unsolicited Provider, Generic External Data 01/26/2025bstract [facility] [address] [facility] [address] [place] [address] Christian Davis MD 01/26/2025bstract [facility] [address] [facility] [address] [place] [address] [phone] Christian Davis MD 01/26/2025linisync Result Encounter [facility] External Department Unsolicited Provider, Generic External Data from Last 3 Months Immunizations ImmunizationAdministration DatesNext DueInfluenza, High Dose Seasonal, Preservative Free05/30/2024,03/20/2021Influenza, High-dose Seasonal, Quadrivalent, Preservative Free05/05/2018Influenza, Seasonal, Quadrivalent, Sygfbbratr17/10/2024,04/02/2022Influenza, Split (incl. purified surface antigen) 05/04/2015Influenza, injectable, quadrivalent, preservative free02/15/2020, 05/26/2017,04/09/2016Influenza, trivalent, /30/2019Pneumococcal Conjugate PCV 1308Pneumococcal Polysaccharide KOMS0412, 01/04/2018,10/14/2012Zoster, live05/02/2013 Family History Medical HistoryRelationNameCommentsCancerFatherStomach cancerFatherCancerMother LymphomaMotherRelationNameStatusCommentsFatherDeceasedMotherDeceased Social History Tobacco UseTypesPacks/DayYears UsedDateSmoking Tobacco: NeverSmokeless Tobacco: Never Tobacco Cessation:Counseling Given: Not Answered PHQ-2AnswerDate RecordedPatient Health Questionnaire-2 Npfkp20106/10/2024 CommentsUnknownSex and Gender InformationValueDate RecordedSex Assigned at Not on fileLegal PqbArmcen75/15/2023 6:53 PM EDTGender IdentityNot on fileSexual OrientationNot on file Last Filed Vital Signs Vital SignReadingTime TakenCommentsBlood Xvmueujl270/7604/10/2025 1:17 PM EST Qrijq729904/10/2025 1:17 PM ESTTemperature--Respiratory Mudm289706/07/2022 9:52 AM ESTOxygen Lzhfwxxehx18%04/10/2025 1:17 PM ESTInhaled Oxygen Concentration-- Ljbnco65.9 kg (185 lb)04/10/2025 1:17 PM CYPLytoqh231.7 cm (5' 0.5 )04/10/2025 1:17 PM ESTBody Mass Index35.5404/10/2025 1:17 PM EST Plan of Treatment DateTypeDepartmentCare Team (Latest Contact Info)Kxsvzpcpmhq91/08/2025 11:00 AM ESTOffice Visit [facility] [address] [facility] [address] [place] [address] Christian Davis MD [address] [facility] [address] [place], [place] [address] Health MaintenanceDue DateLast DoneCommentsCOVID-19 Vaccine ( season) 5106/16/2021, 04/17/2021, 09/07/2020, Additional history existsInfluenza Vaccine (#1)51, 06/10/2023, 04/02/2022, Additional history existsMedicare Annual Wellness (AWV)6106/10/2024, 04/08/2024, 04/07/2023, Additional history tkpvaqZtbxyjwmwnrGxgnocttxcll72/19/2013 Pneumococcal Vaccine: 65+ KhvydLtbswjski40/29/2019, 01/11/2018, 01/04/2018, Additional history existsColorectal Cancer ScreeningDiscontinuedFIT-DNA Qvghhgjvaqdh97/23/6823AzrxypwjvCaenevfejhus79/20/2024, 04/17/2023, 04/17/2023, Additional history existsCT ColonographyDiscontinuedFITDiscontinuedFOBT DiscontinuedSigmoidoscopyDiscontinued Procedures Procedure NamePriorityDate/TimeAssociated DiagnosisCommentsXR FOOT RT MIN 3V 03/06/2025 8:46 PM EDT FLUORO FOR SURGICAL RNIAPHQJBF97/04/2025 10:36 AM EDT MM TOMOSYNTHESIS SCREENING BI04/20/2024 8:24 AM EST LAB COLOGUARD?? COLON CANCER MGBNPLEtbogal09/23/2022 UVAAIYCEVTWAbazclf28/19/2013 12:00 PM EST from Last 3 Months or Most Recently Relevant to Health Maintenance Results * XR FOOT RT MIN 3V (03/06/2025 8:46 PM EDT)Anatomical RegionLateralityModality OtherSpecimen (Source)Anatomical Location / LateralityCollection Method / VolumeCollection TimeReceived Time03/06/2025 8:46 PM EDT Narrative 03/06/2025 8:49 PM EDT [facility] ?[address] ? [place] [address] ?XRay Report ? Signed ? Patient: DAYNA VALENCIA S ?MR#: [id number] ?? : 1950 ?Acct:[id number] ?? Age/Sex: 74 / F ?ADM Date: 03/06/25 ?? Loc: RAD ? Attending Dr: Dimitrios Winter D.P.M. ? Ordering Physician: Dimitrios Winter D.P.M. ?? Date of Service: 03/06/25 ?? Procedure(s): XR foot RT min 3V ?? Accession Number(s): [id number] ? cc: CHRISTIAN DAVSI ; Dimitrios Winter D.P.M. ? [facility] ? [address] ? [place] [address] ? Patient Name: ?? DAYNA VALENCIA ? MRN: [facility]:[id number] ? date: 1950 ?Sex: F ?? Assigned Patient Location: RAD ?? Current Patient Location: RAD ?? Accession/Order Number: [id number] ?? Exam Date: 03/06/2025 ??14:45 ?Report Date: 03/06/2025 ??20:46 ? At the request of: ?? DIMITRIOS ??HIGHLANDER ??DPM ? Procedure: ??XR foot RT min 3V ? XR foot RT min 3V ??03/06/2025 2:53 PM ? SIGNS AND SYMPTOMS: Right foot pain ? PROTOCOL: 3 views of the right foot ? COMPARISON: None ? FINDINGS: ? The bones are in anatomic alignment. ??There is mild narrowing of the first ?? metatarsophalangeal joint. ??There is no fracture or dislocation. ??There is ?? plantar and Achilles surface calcaneal spurring. ??There is accompanying soft ?? tissue swelling/thickening at the Achilles insertion. ? XR/XR foot RT min 3V ?? IMPRESSION: ? No acute bony injury. ? Degenerative changes are noted at the first metatarsophalangeal joint. ? Achilles surface calcaneal spurring with soft tissue thickening at the ?? Achilles insertion. ? Impression dictated by: Willis Batista M.D. ??03/06/2025 8:46 PM ? Dictation Location[facility]- ? Electronically authenticated by: [id number] ??Y ?? Date: 03/06/2025 ??20:46 ? Dictated By: ?Willis Batista M.D. ? Signed By: ?03/06/252048 ? DD/ 45 ? TD/TT: ? Abstract Searcher: Procedure Note Radiology, Radiologist, MD - 03/06/[address] [address] XRay Report Signed Patient: DAYNA VALENCIA [facility]#: [id number] : 8Acct:[id number] Age/Sex: 74 / FADM Date: 03/06/25 Loc: RAD Attending Dr: Dimitrios Winter D.P.M. Ordering Physician: Dimitrios Winter D.P.M. Date of Service: 03/06/25 Procedure(s): XR foot RT min 3V Accession Number(s): [id number] cc: CHRISTIAN DAVIS ; Dimitrios Winter D.P.M. [place] [id number] Patient Name: DAYNA VALENCIA MRN: [facility]:[id number] date: 1950 Sex: F Assigned Patient Location: RAD Current Patient Location: RAD Accession/Order Number: [id number] Exam Date: 03/06/2025 14:45 Report Date: 03/06/2025 [...] and Achilles surface calcaneal spurring. There is accompanyingsoft tissue swelling/thickening at the Achilles insertion. XR/XR foot RT min 3V IMPRESSION: No acute bony injury. Degenerative changes are noted at the first metatarsophalangeal joint. Achilles surface calcaneal spurring with soft tissue thickening at the Achilles insertion. Impression dictated by: Willis Batista M.D. 03/06/2025 8:46 PM Dictation Location: [place] [address] Electronically authenticated by: [id number] Y Date: 0:46 Dictated By: Willis Batista M.D. Signed By:03/06/252048 DD/ 45 TD/TT: Abstract Searcher: Authorizing ProviderResult TypeResult StatusGeneric External Data Provider CLINISYNC IMAGINGFinal Result * FLUORO FOR SURGICAL PROCEDURES (02/02/2025 10:36 AM EDT)Anatomical Region LateralityModalityOtherSpecimen (Source)Anatomical Location / Laterality Collection Method / VolumeCollection TimeReceived Time02/02/2025 10:36 AM EDT Addenda Addendum by Radiology, Radiologist, MD on 02/02/2025 10:40 AM EDT EXAM: FLUORO FOR SURGICAL PROCEDURES HISTORY: LUMBAR RFA COMPARISON: None. TECHNIQUE: Intraoperative fluoroscopy. 7.17 mGy air kerma dose IMPRESSION: FINDINGS/IMPRESSION: Dr. De Leon utilized the fluoroscope in the operating room during radiofrequency ablation. Interpreted by: Matias Weller Jr., MD Signed by: Matias Weller Jr., MD 02/02/25 Edited Result - FINAL Narrative 01/26/2025 1:44 PM EDT Radiology exam is complete. No Radiologist dictation. Please follow up with ordering provider. Final result Procedure Note Doreen Butts MD - 02/02/2025 Radiology exam is complete. No Radiologist dictation. Please follow upwith ordering provider. Final result Authorizing ProviderResult TypeResult StatusGeneric External Data Provider CLINISYNC IMAGINGEdited Result - Final * MM TOMOSYNTHESIS SCREENING BI (04/20/2024 8:24 AM EST)Anatomical Region LateralityModalityOtherSpecimen (Source)Anatomical Location / Laterality Collection Method / VolumeCollection TimeReceived Time04/20/2024 8:24 AM EST Narrative 04/20/2024 8:25 AM EST [facility] ?[address] ? [place] [address] ? Mammography Report ? Signed ? Patient: LEVIAUER,DAYNA S ?MR#: [id number] ?? : 1950 ?Acct:[id number] ?? Age/Sex: 73 / F ?ADM Date: 04/19/24 ?? Loc: MAMMO ? Attending Dr: CHRISTIAN DAVIS ? Ordering Physician: CHRISTIAN DAVIS ? Results: ? Date of Service: 04/19/24 ?Follow Up: ? Procedure(s): MM tomosynthesis screening BI ?? Accession Number(s): [id number] ? cc: CHRISTIAN DAVIS ? [facility] ? MR#: [id number] ? : 1950 ? Exam Date: 04/19/2024 [...] at age 66. ? LOCATION: ? [facility] ? BREAST COMPOSITION: ? There are scattered [...] 0825 ? DD/ 0824 ? TD/TT: ? Abstract Searcher: Procedure Note Radiology, Radiologist, MD - 04/20/2024 [place] [address] Mammography Report Signed Patient: DAYNA VALENCIA SMR#: [id number] : 1950cct:[id number] Age/Sex: 73 / FADM Date: 04/19/24 Loc: MAMMO Attending Dr: CHRISTIAN DAVIS Ordering Physician: CHRISTIAN DAVISResults: Date of Service: 04/19/24Follow Up: Procedure(s): MM tomosynthesis screening BI Accession Number(s): [id number] cc: CHRISTIAN DAVIS Patient Name: DAYNA VALENCIA MR#: [id number] : 1950 Exam Date: 04/19/2024 Ordering Doctor: [...] withstomach cancer at age 66. LOCATION: [facility] BREAST COMPOSITION: There are scattered areas [...] Hernandez M.D. Signed By:04/20/24824 DD/ 3 TD/TT: Abstract Searcher: Authorizing ProviderResult TypeResult StatusDaniotto Davis MDCLINISYNC IMAGING Final Result * Cologuard?? colon cancer screening (03/23/2022)ComponentValueRef RangeTest MethodAnalysis TimePerformed AtPathologist SignatureCOLOGUARD RESULT REPORTABLENegativeNegativeNOMS LEGACY EXTERNAL LABComment: NEGATIVE TEST RESULT. A negative Cologuard result indicates a low likelihood that a colorectal cancer (CRC) or advanced adenoma (adenomatous polyps with more advanced pre-malignant features) ??is present. The chance that a person with a negative Cologuard test has a colorectal cancer is less than 1in 1500 (negative predictive value >99.9%) or has an advanced adenoma is less than 5.3% (negative predictive value 94.7%). These data are based on a prospective cross-sectional study of 10,000individuals at average risk for colorectal cancer who were screened with both Cologuard and colonoscopy. (Damian Lin al, N Engl J Med 2014;370(14):5116-9530) The normal value (reference range) for this assay is negative. COLOGUARD RE-SCREENING RECOMMENDATION: Periodic colorectal cancer screening is an important part ofpreventive healthcare for asymptomatic individuals at average risk for colorectal cancer. ??Following a negative Cologuard result, the Citizen [place] Cancer Society and U.S. Multi-Society Task Force screening guidelines recommend a Cologuard re-screening interval of 3 years. References: [place] Cancer Society Guideline for Colorectal Cancer Screening: https://www.cancer.or g/cancer/wilos-hsfdhi-ridoqy/xhkvczjwk-edgdsqrwt-okaqdpp/acs-recommendations.htm nickolas; Tristian VILLALPANDO, Jadyn ANDRADE, Sweetie RestrepoK, Colorectal Cancer Screening: Recommendations for Physicians and Patients from the U.S. Multi-Society Task Force on Colorectal Cancer Screening , Am J Gastroenterology 2017; 112:8686-1457. TEST DESCRIPTION: Composite algorithmic analysis of stool DNA-biomarkers with hemoglobin immunoassay. ?? Quantitative values of individual biomarkers are not reportable and are not associated with individual biomarker result reference ranges. Cologuard is intended for colorectal cancer screening ofadults of either sex, 45 years or older, who are at average-risk for colorectal cancer (CRC). Cologuard has been approved for use by the U.S. FDA. The performance of Cologuard was established in a cross sectional study of average-risk adults aged 50-84. Cologuard performance in patients ages 45 to 49 years was estimated by sub-group analysis of near-age groups. Colonoscopies performed for a positive result may find as the most clinically significant lesion: colorectal cancer [4.0%], advanced adenoma (including sessile serrated polyps greater than or equal to 1cm diameter) [20%] or non- advanced adenoma [31%]; or no colorectal neoplasia [45%]. These estimates are derived from a prospective cross-sectional screening study of 10,000 individuals at average risk for colorectal cancer who were screened with both Cologuard and colonoscopy. (Damian Foote et al, N Engl J Med 2014;370(14):6787-5559.) Cologuard may produce a false negative or false positive result (no colorectal cancer or precancerous polyp present at colonoscopy follow up). A negative Cologuard test result does not guarantee the absence of CRC or advanced adenoma (pre-cancer). The current Cologuard screening interval is every 3 years. ([place]izen [place] Cancer Society and U.S. Multi-Society Task Force). Cologuard performance data in a 10,000 patient pivotal study using colonoscopy as the reference method can be accessed at the following location: www.[employer]/results. Additional description of the Cologuard test process, warnings and precautions can be found at www.cologuard.com. Specimen (Source)Anatomical Location / LateralityCollection Method / Volume Collection TimeReceived Time03/23/2022 Narrative Authorizing ProviderResult TypeResult StatusDashivam WALKER MOLECULAR DIAGNOSTICS ORDERABLESFinal ResultPerforming OrganizationAddressCity/State/ZIP CodePhone Number [facility] * Colonoscopy (07/20/2012 12:00 PM EST)Anatomical RegionLateralityModality EndoscopySpecimen (Source)Anatomical Location / LateralityCollection Method / VolumeCollection TimeReceived Time07/20/2012 12:00 PM EST Narrative 07/20/2012 12:00 PM EST PERFORMED AT [facility] LOCATION:[id number] Internal Hemorrhoids Procedure Note CONVERSION, GENERIC - 10/16/2022 PERFORMED AT [facility] LOCATION:[id number] Internal Hemorrhoids Authorizing ProviderResult TypeResult StatusMaynor Wayne MDENDOSCOPY PROCEDURE ORDERABLESFinal Result from Last 3 Months or Most Recently Relevant to Health Maintenance Insurance Care Teams Team MemberRelationshipSpecialtyStart DateEnd Christian Davis MD [address] [facility] [address] [place] [address] PCP - GeneralInternal Medicine10/07/22 Christian Davis MD [address] [facility] [address] [place] [address] PCP - ACO Reach2 Yordan Rodriguez DO [address] [place] [address] Referring PhysicianNeurology2
--- OUTSIDE RECORDS SUMMARY | 2025-04-11 12:22 | XMS_ITS | Clinical Summary ---
Author Organization [facility] Address [address] [facility], [address] [place] [address] Care Team Providers Care News Video Editor Name Role Phone Christian Davis MD Primary Care Provider [phone] Allergies Active AllergyReactionsCriticalityNoted GqyxHlbnujsaJijtwvgqces09/07/2023 Other Reaction(s): diarrhea Hydrocodone-AystoiiyhdwmsBptuevgsz73/07/2023Oxycodone-AcetaminophenHeadaches 04/07/2023 Medications MedicationSigDispense QuantityRefillsLast FilledStart DateEnd DateStatus calcium carbonate 600 MG TABS tablet Take 1 tablet by mouth dailyActive Multiple Vitamin (MULTIVITAMIN) TABS tablet Take 1 tablet by mouth dailyActive acetaminophen (TYLENOL) 500 MG tablet Take 1 tablet by mouth every 6 hours as needed for PainActive VITAMIN D, CHOLECALCIFEROL, PO Take 1 capsule by mouth dailyActive Cyanocobalamin (VITAMIN B-12 CR PO) Take 1 capsule by mouth dailyActive Calcium Carbonate-Vit D-Min (CALCIUM 600+D3 PLUS MINERALS) 600-800 MG-UNIT CHEW in the morning.Active predniSONE (DELTASONE) 10 MG tablet Indications:Lumbosacral spondylosis without myelopathyTake 1 tablet by mouth daily for 10 days 10 tablet Expired Active Problems ProblemNoted DateDiagnosed DateLumbosacral spondylosis without myelopathy 11/10/2024 Encounters DateTypeDepartmentCare XohlRmadpetdgex70/02/2025 10:[address] [address] [place], [place] [id number] Dwayne De Leon DO Chronic pain of right heel (Primary Dx); Lumbosacral spondylosis without myelopathy; Degeneration of intervertebral disc of lumbar region, unspecified whether pain present; Myofascial pain fihjkgiz50/02/[facility] [address] [place] [address] Dwayne De Leon DO 03/02/2025bstract [facility] Medicine & Rehabilitation [address] [place] [address] Dwayne De Leon DO 01/26/2025 12:33 PM EDT - 01/26/2025 12:58 PM EDTSurgery [facility] OR [address] [place] [address] Dwayne De Leon DO LEFT LUMBAR L3, L4, L5 RADIO FREQUENCY XYZTUUTQ10/28/2025 11:17 AM EDT - 01/26/2025 1:13 PM EDTHospital Encounter [facility] OR [address] [place] [address] Dwayne De Leon DO Discharge Disposition: Home or Self Care01/26/20253462Cuyzha22/11/[address] [address] [place] [address] Dwayne De Leon DO from Last 3 Months Social History Tobacco UseTypesPacks/DayYears UsedDateSmoking Tobacco: Unknown Tobacco Cessation:Counseling Given: Not Answered Alcohol UseStandard Drinks/WeekCommentsNot Currently0 (1 standard drink = 0.6 oz pure alcohol)Interpersonal Safety Domain Source: IP Abuse ScreeningAnswerDate RecordedPhysical ibdngUhcyet20/28/2025Verbal vmtvrTzbiot09/28/2025Emotional esevpDpjmud34/28/2025Financial fpdmvGwlfif45/28/2025Sexual izldvLjisii82/28/2025 CommentsNoSex and Gender InformationValueDate RecordedSex Assigned at FqjsrJqtrga57/22/2025 9:34 AM EDTLegal AlcZtwsem84/10/2013 12:07 PM ESTGender WolmsxxbVhjjrs14/22/2025 9:34 AM EDTSexual KgjnqxzkdveIhgwoyjo77/22/2025 9:34 AM EDT Last Filed Vital Signs Vital SignReadingTime TakenCommentsBlood Joxfodnk626/6210 10:42 AM EDT Rmvnu065701/26/2025 1:00 PM VVOBqumrruhvlt33.3 ??C (97.4 ??F)01/26/2025 1:00 PM EDTRespiratory Cnke0670 10:42 AM EDTOxygen Mqiqehngqq24%01/26/2025 1:00 PM EDTInhaled Oxygen Concentration--Wxruhl51.4 kg (186 lb)03/02/2025 10:42 AM UFGSdoewh648.5 cm (5' 2 )01/26/2025 11:46 AM EDTBody Mass Index34.02001/26/2025 11:46 AM EDT Plan of Treatment DateTypeDepartmentCare Team (Latest Contact Info)Bqixtmmrkgh76/13/2026 10:[address] Rehabilitation [address] [place] [address] Jessica Gonsales, CONSOLE ASSEMBLER - HUMAN RESOURCES PROJECT MANAGER [address] [facility] [address] [place] [address] 6 month f/uHealth MaintenanceDue DateLast DoneCommentsDepression Screen 1960Hepatitis C lczsgz7205/08/1966DTaP/Tdap/Td vaccine (1 - Tdap)1967 Shingles vaccine (2 of 3)Respiratory Syncytial Virus (RSV) or age 60 yrs+ (1 - 1-dose 75+ series)3Annual Wellness Visit (Medicare)11/10/2024Flu vaccine (#1)/, 06/10/2023, 04/02/2022, Additional history existsCOVID-19 Vaccine (2 - 2024- season) /2Pneumococcal 50+ years DslfgrwTvusvuqly53/29/2019, 01/11/2018, 01/04/2018, Additional history existsDEXA (modify frequency per FRAX score)Invxkqddo72/25/2022, 03/05/2022, 06/07/2019, Additional history exists Hepatitis A vaccineAged OutNo longer eligible based on patient's age to complete this topicHepatitis B vaccineAged OutNo longer eligible based on patient's age to complete this topicHib vaccineAged OutNo longer eligible based on patient's age to complete this topicMeningococcal (ACWY) vaccineAged OutNo longer eligible based on patient's age to complete this topicMeningococcal B vaccineAged OutNo longer eligible based on patient's age to complete this topicPolio vaccineAged OutNo longer eligible based on patient's age to complete this topic Procedures Procedure NamePriorityDate/TimeAssociated DiagnosisCommentsFLUORO FOR SURGICAL AWEVKZMYWOLxxbulp15/28/2025 1:21 PM EDT CO DSTR NROLYTC AGNT PARVERTEB FCT SNGL LMBR/JVSBIY8801/26/2025 12:42 PM EDT Lumbosacral spondylosis without myelopathy from Last 3 Months Results * FLUORO FOR SURGICAL PROCEDURES (01/26/2025 1:21 PM EDT)Anatomical Region LateralityModalityComputed RadiographySpecimen (Source)Anatomical Location / LateralityCollection Method / VolumeCollection TimeReceived Time01/26/2025 1:21 PM EDT Impressions 01/26/2025 1:41 PM EDT FINDINGS/IMPRESSION: Dr. De Leon utilized the fluoroscope in the operating room during radiofrequency ablation. Narrative 01/26/2025 1:41 PM EDT EXAM: FLUORO FOR SURGICAL PROCEDURES HISTORY: LUMBAR RFA COMPARISON: None. TECHNIQUE: Intraoperative fluoroscopy. 7.17 mGy air kerma dose Procedure Note Matias Weller Jr., MD - 02/02/2025 EXAM: FLUORO FOR SURGICAL PROCEDURES HISTORY: LUMBAR RFA COMPARISON: None. TECHNIQUE: Intraoperative fluoroscopy. 7.17 mGy air kerma dose IMPRESSION: FINDINGS/IMPRESSION: Dr. De Leon utilized the fluoroscope in the operating room during radiofrequency ablation. Authorizing ProviderResult TypeResult StatusDarin Moises DOIMG FLUOROSCOPY ORDERABLESEdited Result - Final from Last 3 Months Insurance Care Teams Team MemberRelationshipSpecialtyStart DateEnd Christian Davis MD [address] [facility] [address] [place] [address] PCP - GeneralInternal Medicine10/06/24
--- OUTSIDE RECORDS SUMMARY | 2025-04-11 12:22 | XMS_ITS | Encounter Summary ---
Author Organization [facility] Address [address] [facility] [place] [address] Care Team Providers Care Radio Rigger Name Role Phone Christian Davis MD Primary Care Provider Elizabeth Davis LEATHER POLISHER Unavailable [phone] Yordan Rodriguez DO Unavailable [phone] Christian Davis MD Unavailable [phone] Encounter Details DateTypeDepartmentCare Team (Latest Contact Info)Kvxnbgranwc75/20/2024linisync Result Encounter [facility] Unsolicited Christian Davis MD [address] [place] [address] Social History Tobacco UseTypesPacks/DayYears UsedDateSmoking Tobacco: NeverSmokeless Tobacco: NeverPHQ-2AnswerDate RecordedPatient Health Questionnaire-2 Cizqf61006/08/2023 CommentsUnknownSex and Gender InformationValueDate RecordedSex Assigned at BirthNot on fileLegal OlxKbjhpv62/15/2023 6:53 PM EDTGender IdentityNot on fileSexual OrientationNot on filedocumented as of this encounter Plan of Treatment DateTypeDepartmentCare Team (Latest Contact Info)Xofpdcufxmq19/08/2025 11:00 AM ESTOffice Visit [facility] [address] [place] [id number] Christian Davis MD [address] [place] [address] documented as of this encounter Procedures Procedure NamePriorityDate/TimeAssociated DiagnosisCommentsXR DEXA AXIAL YAUZVDTD98/20/2024 3:50 AM EST documented in this encounter Results * XR DEXA AXIAL SKELETON (04/20/2024 3:50 AM EST)Anatomical RegionLaterality ModalityOtherSpecimen (Source)Anatomical Location / LateralityCollection Method / VolumeCollection TimeReceived Time04/20/2024 3:50 AM EST Narrative 04/20/2024 3:53 AM EST [facility] ?[address] ? [place] [address] ?XRay Report ? Signed ? Patient: DAYNA SANCHEZ S ?MR#: [id number] ?? : 1950 ?Acct:[id number] ?? Age/Sex: 73 / F ?ADM Date: 04/19/24 ?? Loc: MAMMO ? Attending Dr: CHRISTIAN DAVIS ? Ordering Physician: CHRISTIAN DAVIS ?? Date of Service: 04/19/24 ?? Procedure(s): XR DEXA axial skeleton ?? Accession Number(s): [id number] ? cc: CHRISTIAN DAVIS ? [facility] ? [address] [facility] ? [place] [address] ? Patient Name: ?? DAYNA Esther [facility] ? MRN: [facility]:[id number] ? date: 1950 ?Sex: F ?? Assigned Patient Location: MAMMO ?? Current Patient Location: ? Accession/Order Number: [id number] ?? Exam Date: 04/19/2024 ??13:36 ?Report Date: 04/20/2024 ??03:50 ? At the request of: ?? CHRISTIAN ??ZOEY ? Procedure: ??XR DEXA axial skeleton ? EXAMINATION: XR DEXA axial skeleton ? HISTORY: Estrogen Deficiency ? COMPARISON: DEXA bone densitometry 03/25/2022 ? TECHNIQUE: Dual-energy X-ray absorptiometry (DXA) was performed. ? FINDINGS: ?? SPINE ANALYSIS: ?? Average bone mineral density is 1.212 g/cm2. ?? T-score (standard deviation relative to young adult mean): 0.3 . ?? -1.9% change since prior study. ? HIP ANALYSIS: ?? Lowest bone mineral density is within the left femoral neck, 0.762 g/cm2. ?? T-score (standard deviation relative to young adult mean): -2.0 . ?? +6.1% change since prior study. ? XR/XR DEXA axial skeleton ?? IMPRESSION: ? World Health Organization Classification: Osteopenia - Moderate Fracture Risk ?? FRAX: Cannot be calculated. ? Pharmacologic treatment recommendations ?? * No uniform recommendation applies to all patients. Management plans must be ?? individualized. ?? * Consider initiating pharmacologic treatment in postmenopausal women and men ?? >= 50 years of age who have the following: Primary fracture prevention: ?? * T-score <= - 2.5 at the femoral neck, total hip, lumbar spine, 33% radius (some uncertainty with existing data) by DXA. ?? * Low bone mass (osteopenia: T-score between - 1.0 and - 2.5) at the femoral ?? neck or total hip by DXA with a 10-year hip fracture risk >= 3% or a 10-year major osteoporosis-related fracture risk >= 20% (i.e., clinical vertebral, hip, ?? forearm, or proximal humerus) based on the [place]-adapted FRAXregistered model. ?? Secondary fracture prevention: ?? * Fracture of the hip or vertebra regardless of BMD [4, 5]. ?? * Fracture of proximal humerus, pelvis, or distal forearm in persons with low ?? bone mass (osteopenia: T-score between - 1.0 and - 2.5). The decision to treat ? should be individualized in persons with a fracture of the proximal humerus, ?? pelvis, or distal forearm who do not have osteopenia or low BMD [12, 13]. ?? Gene MS, Bekah SL, Cate KL, Anusha EM, Emily KG, AJ, Alex ?? ES. ?? The clinician's guide to prevention and treatment of osteoporosis. Osteoporos ?? Int. 2021;33(10):4596-7503. doi: 10.1007/a01108-499-68487-c. Epub 2021 Apr ? 28. Erratum in: Osteoporos Int. 2021Dec 26;: PMID: 30172866; PMCID: ?? [id number]. ? Electronically authenticated by: BLAS ??JIGNA ?? Date: 04/20/2024 ??03:50 ? Dictated By: ?Blas Donald M.D. ? Signed By: ?04/20/24352 ? DD/ 9 ? TD/TT: ? Game Moderator: Procedure Note Radiology, Radiologist, MD - 04/20/2024 [place] [id number] XRay Report Signed Patient: DAYNA SANCHEZ SMR#: [id number] : 1950cct:[id number] Age/Sex: 73 / FADM Date: 04/19/24 Loc: MAMMO Attending Dr: CHRISTIAN DAVIS Ordering Physician: CHRISTIAN DAVIS Date of Service: 04/19/24 Procedure(s): XR DEXA axial skeleton Accession Number(s): [id number] cc: CHRISTIAN DAVIS The [address] [address] Patient Name: DAYNA SANCHEZ MRN: [id number] date: 1950 Sex: F Assigned Patient Location: [facility] Current Patient Location: Accession/Order Number: [id number] Exam Date: 04/19/2024 13:36 Report Date: 04/20/2024 [...] World Health Organization Classification: Osteopenia - Moderate FractureRisk FRAX: Cannot be calculated. Pharmacologic treatment recommendations * No uniform recommendation applies to all patients. Management plans mustbe individualized. * Consider initiating pharmacologic treatment in postmenopausal women andmen >= 50 years of age who have the following: Primary fracture prevention: * T-score <= - 2.5 at the femoral neck, total hip, lumbar spine, 33%radius (some uncertainty with existing data) by DXA. * Low bone mass (osteopenia: T-score between - 1.0 and - 2.5) at thefemoral neck or total hip by DXA with a 10-year hip fracture risk >= 3% or d12-qwle major osteoporosis-related fracture risk >= 20% (i.e., clinical vertebral, hip, forearm, or proximal humerus) based on the [place]-adapted FRAXregisteredmodel. Secondary fracture prevention: * Fracture of the hip or vertebra regardless of BMD [4, 5]. * Fracture of proximal humerus, pelvis, or distal forearm in persons withlow bone mass (osteopenia: T-score between - 1.0 and - 2.5). The decision totreat should be individualized in persons with a fracture of the proximalhumerus, pelvis, or distal forearm who do not have osteopenia or low BMD [12, 13]. Gene MS, Bekah SL, Cate KL, Anusha EM, Emily KG, AJ,Alex ES. The clinician's guide to prevention and treatment of osteoporosis.Osteoporos Int. 2021;33(10):0065-7359. doi: 10.1007/b68873-842-61498-h. Ep. Erratum in: Osteoporos Int. 2021Dec 26;: PMID: 08056362; PMCID: [id number]. Electronically authenticated by: BLAS DONALD Date: 04/20/2024 03:50 Dictated By: Blas Donald M.D. Signed By:04/20/24352 DD/ 9 TD/TT: Game Moderator: Authorizing ProviderResult TypeResult StatusDaniel Maya Davis MDCLINISYNC IMAGING Final Result documented in this encounter Visit Diagnoses Not on filedocumented in this encounter Additional Health Concerns AssessmentNoted TimePHQ-9 Depression Total Score: 9:00 AM EST documented as of this encounter Care Teams Team MemberRelationshipSpecialtyStart DateEnd Christian Davis MD [address] [place] [address] PCP - GeneralInternal Medicine10/07/22 Elizabeth Davis, [employer]ER [employer]ISHER [address] [place] [address] PCP - ACO Reach/11/23 Christian Davis MD [address] [place] [address] PCP - ACO Reach07/08/24 Yordan Rodriguez DO [address] [place] [address] Referring PhysicianNeurology2documented as of this encounter
[2025-04-11 12:40] LABS: Hematocrit 39.3 % (36.0-48.0); Hemoglobin 13.0 g/dL (12.0-16.0); Immature Granulocytes Abs Auto 0.01 10^3/uL (0.00-0.03); Immature Granulocytes Pct Auto 0.2 % (0.0-0.5); Lymphocytes Absolute Auto 1.6 10^3/uL (1.2-3.8); Mean Corpuscular HGB Conc 33.1 g/dL (29.9-35.2); Mean Corpuscular Hemoglobin 33.4 pg (26.7-34.0); Mean Corpuscular Volume 101.0 fL (81.0-99.0); Platelet Count 253 10^3/uL (150-450); Red Blood Count 3.89 10^6/uL (4.20-5.40); White Blood Count 6.0 10^3/uL (4.0-11.0)
[2025-04-11 13:02] LABS: Alanine Aminotransferase 30 U/L (14-59); Albumin Globulin Ratio 1.0; Albumin Level 3.7 g/dL (3.4-5.0); Alkaline Phosphatase 98 U/L (46-116); Anion Gap 13.4; Aspartate Amino Transferase 32 U/L (15-37); Blood Urea Nitrogen 20.0 mg/dL (7.0-18.0); Calcium 10.0 mg/dL (8.5-10.1); Carbon Dioxide 27.8 mmol/L (21.0-32.0); Chloride 106 mmol/L (98-107); Estimated GFR (African America 58 (>=60 mL/min/1.73m^2); Estimated GFR (Non-African Ame 48 (>=60 mL/min/1.73m^2); Globulin 3.6 g/dL; Glucose 80 mg/dL (74-106); Potassium 4.2 mmol/L (3.5-5.1); Sodium 143 mmol/L (136-145); Thyroid Stimulating Hormone 1.738 uIU/mL (0.358-3.740); Total Protein 7.3 g/dL (6.4-8.2)
[2025-04-12 05:07] LABS: Vitamin B12 1443 pg/mL (232-1245)
== END 2025-04-11 12:15 | disposition home or self-care (01) ==
LOC: LAB 12:17
PROVIDERS: PCP Internal Medicine; Visit Provider Internal Medicine
DX: E53.8 Deficiency of other specified B group vitamins (principal); R53.1 Weakness; Z68.35 Body mass index [BMI] 35.0-35.9, adult
CPT/HCPCS: 36415; 80053; 82607; 84439; 84443; 85025